=== PATIENT | male | born 1960 | race Caucasian/White ===

== ENCOUNTER 2016-09-03 15:01 | Emergency (ER) | payer OTHER ==
[~2016-09-03] VITALS: Ht 165.1 cm; Wt 90.5 kg
[2016-09-03 15:05] VITALS: BP 150/71; TEMP 36.7; Ht 165.1 cm; Wt 90.5 kg
--- NOTE | 2016-09-03 15:43 | DIAGNOSTIC IMAGING REPORT ---
RIGHT ELBOW MIN 3 VIEWS ROUTINE CLINICAL HISTORY: Right elbow pain. Trauma. COMPARISON: None DISCUSSION: There is mild displacement of the anterior humeral fat pad. No acute fractures are visualized. There is a small coronoid process spur. IMPRESSION: Suspected small joint effusion. Mild degenerative changes. No acute fractures are visualized on conventional radiographic imaging. Electronically signed by: Antolin Milligan M.D. 09/03/2016 3:42 PM Dictated Date/Time: 09/03/2016 3:40 PM
--- NOTE | 2016-09-03 15:58 | EMERGENCY ROOM VISIT NOTE ---
History First contact with patient: 15:09 Chief Complaint: ARM PAIN Stated Complaint: PAIN RT ARM History of Present Illness The patient is a 55 year old male who presents to the Emergency Room with complaints of right elbow pain after injuring his elbow yesterday at work. At approximately 2:30 PM, the patient was attempting to secure lumbar on a flatbed trailer, using a belt strap, when the latch broke while the patient was putting all of his weight on the tightening bar. The patient reports that he fell onto the ground with his elbow striking the ground first. He denies any head injury , neck pain, back pain, shoulder pain or other injuries except for his right elbow. He denies any paresthesias or numbness of the right hand or fingers. The patient is sfolc-[id number]-hzggnhaf, and rates his pain an 8 out of 10. Patient has taken Tylenol for the pain which provides mild to moderate relief. Review of Systems 10 system review was performed and was negative except for pertinent positives and negatives as indicated in history of present illness Past Medical/Surgical History Medical Problems: (1) Amputation Finger (2) Renal Sclerosis Nos Surgical Problems: (1) History of cholecystectomy Family History FH: cancer Social History Smoking Status: Never Smoker Alcohol Use: none Marital Status: Occupation Status: employed Current/Historical Medications Scheduled Multivitamin (Multivitamin), 1 TAB PO DAILY Allergies Coded Allergies: Penicillins (Verified Allergy, Mild, "MAKES ME SICK.", 11/01/10) Aspirin (Verified Adverse Reaction, Mild, NOSE BLEEDS, 11/01/10) Physical Exam Vital Signs Date Time Temp Pulse Resp B/P Pulse Ox O2 Delivery O2 Flow Rate FiO2 09/03/16 15:05 36.7 82 20 150/71 96 Room Air Physical Exam CONSTITUTIONAL: Healthy and well nourished. Alert and oriented X 3 with positive affect. Patient does not appear in any acute distress. HEENT: Normocephalic, atraumatic. Pupils equal, round and reactive. NECK: Full active range of motion without discomfort. MUSCULOSKELETAL: Examination of the right elbow shows mild edema. No ecchymosis , abrasions or lacerations noted. The patient has general tenderness to palpation about the entire posterior elbow and lateral elbow. Pronation and supination worsens his pain at the lateral elbow region. Flexion and extension causes generalized pain. The patient has no tenderness to palpation through the biceps musculature. He has mild tenderness to the triceps. Range of motion of the shoulder does not cause any discomfort. Negative anatomic snuffbox tenderness. Capillary refill is less than 2 seconds. INTEGUMENTARY: No rash or other significant dermatologic conditions noted. NEUROLOGIC: Right hand and fingers are sensory intact. Medical Decision & Procedures ER Provider Diagnostic Interpretation: My interpretation of right elbow x-rays does not show any obvious fractures or dislocations. There is mild displacement of the anterior fat pad. Radiologist report is as follows: RIGHT ELBOW MIN 3 VIEWS ROUTINE CLINICAL HISTORY: Right elbow pain. Trauma. COMPARISON: None DISCUSSION: There is mild displacement of the anterior humeral fat pad. No acute fractures are visualized. There is a small coronoid process spur. IMPRESSION: Suspected small joint effusion. Mild degenerative changes. No acute fractures are visualized on conventional radiographic imaging. ED Course Patient history and physical exam were performed. Nurse's notes were reviewed. The patient refused any analgesics while in the emergency department. X-rays of the right elbow showed no fractures, however a joint effusion is suspected. The patient was encouraged to limit his activities until reevaluated by his Worker's Compensation approved orthopedic surgeon. Tylenol as needed for pain. The patient reports that he is not allowed to take aspirin or Motrin because it causes nosebleeds. He was encouraged to apply ice for swelling. The patient was happy with plan of care, and voiced understanding of all discharge instructions. Medical Decision Impression Primary Impression: Injury of right elbow Additional Impression: Work related injury Departure Information Referrals Loren Arriaza.Santiago PA-C (PCP) Patient Instructions [facility] Problem Qualifiers Primary Impression: Injury of right elbow Encounter type: initial encounter Qualified Codes: S59.901A - Unspecified injury of right elbow, initial encounter
[2016-09-03 16:03] VITALS: PULSE 86; O2SAT 98
[2016-09-03] MEDS ORDERED: MULT-506 PO (20:38)
== END 2016-09-03 16:04 | disposition home or self-care (01) ==
LOC: C.EDB 15:02 → C.EDD 16:04
DX: S59.901A Unspecified injury of right elbow, initial encounter (principal); W17.89XA Other fall from one level to another, initial encounter; Y99.0 Civilian activity done for income or pay

== ENCOUNTER → 2016-09-28 | Outpatient (CLI) | payer OTHER ==
[~2016-09-28] MED LIST: MULT-506 PO
[2016-09-28 13:45] LABS: THYROID STIMULATING HORMONE 3.75 uIu/ml (0.300-4.500)
== END | disposition home or self-care (01) ==
LOC: C.LABPVFM 07:53
DX: E03.9 Hypothyroidism, unspecified (principal)

== ENCOUNTER 2019-03-23 14:58 | Inpatient (IN) ==
--- NOTE | 2019-03-23 15:19 | Emergency Department Note ---
Entered by Jaclyn Clancy acting as a scribe for Len Duarte MD History of Present Illness General Chief complaint: Flank Pain Stated complaint: PAIN THE WRAPS AROUND SIDES Time Seen by Provider: 03/23/19 15:04 Source: patient History of Present Illness Provider complaint: flank pain Onset (ago): day(s) 5 Location: abdomen (flank), left and right Radiation: back Pain Consistency: + other (episode) Associated symptoms: + denies other symptoms (dysuria, constipation, diarrhea, injury/trauma to the area) and + other (back is numb to the touch, occasional swelling in feet); no chest pain and no shortness of breath The patient is a 58 year old male who presents to the ED with complaints of an episode of bilateral flank pain that began 5 days ago. The patient states that it feels like there is a band that is wrapped around his abdomen that is getting tighter. The patient states that the pain radiates from his stomach all the way to his back. The patient denies injury and trauma to the area. 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 The patient states that his back feels numb when it is touched. The patient notes occasional swelling in his feet. The patient denies chest pain, shortness of breath, dysuria, constipation and diarrhea. Home Medications Home Medications Medication Instructions Recorded Confirmed Type anpoceyo-vrj-ugixo-vit K-lycop 1 tab PO DAILY 03/23/19 03/23/19 History [Men's One Daily] Allergies Allergy/AdvReac Type Severity Reaction Status Date / Time aspirin AdvReac Mild NOSE BLEEDS Verified 03/23/19 15:31 Penicillins AdvReac Mild "MAKES ME Verified 03/23/19 18:29 SICK." Past Med/Surg History Medical History Hydronephrosis of left kidney (Chronic) Surgical History History of abdominal surgery (Chronic) H/O left renal surgery History of appendectomy (Chronic) History of cholecystectomy (Chronic) History of kidney surgery Family History Father Cancer Social History Communication Ability: Effective Severity Of Illness Coordinator Required: No Beliefs That Will Affect Care: None Current Living Situation: Spouse and Family Current Living Situation Comment: lonatt-[id number] lives with patient also current occupational status: employed 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 and A total of 10 systems reviewed and were otherwise negative Physical Exam Vital Signs Vital Signs - 24 hr 03/23/19 15:00 03/23/19 15:25 03/23/19 15:26 Temperature 36.7 C Temperature Source Oral Sepsis Recent Fever Within 48 Hours No Sepsis New/Unexplained Change in Mental Status No Sepsis Action Taken by Nursing No Action Required Pulse Rate 86 86 Pulse Rate from SpO2 Sensor Respiratory Rate 18 20 Blood Pressure 177/73 H Blood Pressure Mean 107 Pulse Oximetry 95 96 Oxygen Delivery Method Room Air Room Air 03/23/19 15:30 03/23/19 15:40 03/23/19 16:01 Temperature Temperature Source Sepsis Recent Fever Within 48 Hours Sepsis New/Unexplained Change in Mental Status Sepsis Action Taken by Nursing Pulse Rate 85 80 81 Pulse Rate from SpO2 Sensor 81 Respiratory Rate 21 22 23 Blood Pressure 171/77 H Blood Pressure Mean 108 Pulse Oximetry 95 Oxygen Delivery Method 03/23/19 16:03 03/23/19 16:10 03/23/19 16:20 Temperature Temperature Source Sepsis Recent Fever Within 48 Hours Sepsis New/Unexplained Change in Mental Status Sepsis Action Taken by Nursing Pulse Rate 81 77 79 Pulse Rate from SpO2 Sensor 79 77 79 Respiratory Rate 18 17 14 Blood Pressure Blood Pressure Mean Pulse Oximetry 95 96 96 Oxygen Delivery Method 03/23/19 16:30 03/23/19 16:40 03/23/19 16:50 Temperature Temperature Source Sepsis Recent Fever Within 48 Hours Sepsis New/Unexplained Change in Mental Status Sepsis Action Taken by Nursing Pulse Rate 77 83 76 Pulse Rate from SpO2 Sensor 77 83 77 Respiratory Rate 16 17 19 Blood Pressure Blood Pressure Mean Pulse Oximetry 97 96 95 Oxygen Delivery Method 03/23/19 17:00 03/23/19 17:10 03/23/19 17:20 Temperature Temperature Source Sepsis Recent Fever Within 48 Hours Sepsis New/Unexplained Change in Mental Status Sepsis Action Taken by Nursing Pulse Rate 75 76 79 Pulse Rate from SpO2 Sensor 75 76 79 Respiratory Rate 21 16 20 Blood Pressure 153/75 H Blood Pressure Mean 101 Pulse Oximetry 96 95 96 Oxygen Delivery Method 03/23/19 17:30 03/23/19 17:40 03/23/19 17:50 Temperature Temperature Source Sepsis Recent Fever Within 48 Hours Sepsis New/Unexplained Change in Mental Status Sepsis Action Taken by Nursing Pulse Rate 81 75 72 Pulse Rate from SpO2 Sensor 79 76 72 Respiratory Rate 14 15 16 Blood Pressure Blood Pressure Mean Pulse Oximetry 96 97 96 Oxygen Delivery Method 03/23/19 17:52 Temperature Temperature Source Sepsis Recent Fever Within 48 Hours Sepsis New/Unexplained Change in Mental Status Sepsis Action Taken by Nursing Pulse Rate 73 Pulse Rate from SpO2 Sensor 74 Respiratory Rate 16 Blood Pressure 160/73 H Blood Pressure Mean 102 Pulse Oximetry 97 Oxygen Delivery Method General: Non-ill appearing middle aged male in no acute distress. HEENT: Normal cephalic atraumatic. Pupils are equal round and reactive to light. Extraocular movements are intact. Oropharynx is pink with moist mucous membranes. No swelling of the mouth lips or tongue. Neck: Supple with a midline trachea. No meningeal signs or stiffness, no JVD or bruits. No Stridor. Chest: Clear to auscultation bilaterally. No wheezes or rhonchi. No increased work of breathing. Heart: regular rate and rhythm. Abdomen: Mildly tender in bilateral mid lower abdomen. Soft, nondistended without rebound guarding or rigidity. No masses. Scar in left flank from previous surgery. Extremities: No cyanosis clubbing or edema. No calf tenderness or asymmetry Spine/Back. Non tender to palpation. No CVA tenderness Skin: Good turgor without rashes. Neurologic exam: Cranial nerves two through 12 are intact. Motor and sensation are intact and symmetrical throughout. Course 1505: Past medical records reviewed. The patient was evaluated in room A4. A complete history and physical exam was performed. 1551: I reevaluated the patient and he is at CT. 1618: I reevaluated the patient and he is resting comfortably. I discussed the patient's test results with him. We are still awaiting lab work. 1638: I reevaluated the patient and he feels good. I updated the patient on the lab results. The patient has an elevated troponin and EKG changes. I will contact Jim for admission. 1645: I discussed the patients case with [place] PA-C. She will be accepting the patient for Dr. Unique Fernandez Hospitalist. He will evaluate the patient for further management. Administered Medications Discontinued Medications Amlodipine Besylate (Norvasc) 5 mg PO NOW ONE Stop: 03/23/19 22:13 Last Admin: 03/23/19 22:30 Dose: 5 mg Documented by: [id number] Aspirin (Aspirin Chew) 324 mg PO NOW STA Stop: 03/23/19 18:38 Last Admin: 03/23/19 19:24 Dose: Not Given Documented by: [id number] Calcium Carbonate (Tums) 500 mg PO NOW STA Stop: 03/23/19 18:28 Last Admin: 03/23/19 19:01 Dose: 500 mg Documented by: [id number] Famotidine (Pepcid 20mg Iv Push) 20 mg IV ONE STA Stop: 03/23/19 18:28 Last Admin: 03/23/19 19:01 Dose: 20 mg Documented by: [id number] Sodium Chloride (Nss 1000ml) 1,000 mls @ 100 mls/hr IV .Q10H LUIS FELIPE Stop: 03/24/19 06:00 Last Infusion: 03/23/19 21:40 Dose: 0 mls/hr Documented by: [id number] Admin: 03/23/19 20:19 Dose: 100 mls/hr Documented by: [id number] Ioversol (Optiray 320 125ml) 120 ml IV ONCE PRN PRN Reason: Interaction Checking Stop: 03/27/19 17:57 Last Admin: 03/23/19 17:59 Dose: 120 ml Documented by: [id number] Medical Decision Making Differential Diagnosis Differentials include bowel obstruction, aneurysm, musculoskeletal, diverticulitis, kidney stone, metabolic and electrolyte abnormality. Medical Records Attestation: I reviewed the patient's medical records. Home Medications Current Medication List: was personally reviewed by me Laboratory Data Attestation: I reviewed the patient's lab results. Result diagrams: 03/23/19 15:33 03/23/19 15:33 Lab Results 03/23/19 03/23/19 03/23/19 Range/Units 15:33 15:33 15:33 WBC 7.50 (4.8-10.8) K/uL RBC 5.27 (4.7-6.1) M/uL Hgb 15.1 (14.0-18.0) g/dL Hct 44.1 (42-52) % MCV 83.7 (80-100) fL MCH 28.7 (25-34) pg MCHC 34.2 (32-36) g/dL RDW Std Deviation 37.8 (36.4-46.3) fL RDW Coeff of Kalani 12.6 (11.5-14.5) % Plt Count 192 (130-400) K/uL MPV 10.1 (7.4-10.4) fL Immature Gran % (Auto) 0.4 % Neut % (Auto) 57.8 % Lymph % (Auto) 26.0 % [place] % (Auto) 9.7 % Eos % (Auto) 5.7 % Baso % (Auto) 0.4 % Immature Gran # (Auto) 0.03 H (0.00-0.02) K/uL Neut # (Auto) 4.33 (1.4-6.5) K/uL Lymph # (Auto) 1.95 (1.2-3.4) K/uL [place] # (Auto) 0.73 H (0.11-0.59) K/uL Eos # (Auto) 0.43 (0-0.5) K/uL Baso # (Auto) 0.03 (0-0.2) K/uL Sodium 140 (136-145) mmol/L Potassium 4.2 (3.5-5.1) mmol/L Chloride 106 (98-107) mmol/L Carbon Dioxide 27 (21-32) mmol/L Anion Gap 7.0 (3-11) BUN 20 H (7-18) mg/dl Creatinine 1.47 H (0.6-1.4) mg/dl Est Cr Clr Drug Dosing 54.2 ml/min Est GFR ( Amer) 60.1 Est GFR (Non-Af Amer) 51.8 BUN/Creatinine Ratio 13.3 (10-20) Glucose 101 H (70-99) mg/dl Lactate 0.9 (0.4-2.0) mmol/L Calcium 8.8 (8.5-10.1) mg/dl Total Bilirubin 0.4 (0.2-1) mg/dl AST 24 (15-37) U/L ALT 27 (12-78) U/L Alkaline Phosphatase 109 (45-117) U/L Troponin I 0.051 H* (0-0.045) ng/ml Total Protein 7.4 (6.4-8.2) gm/dl Albumin 3.5 (3.4-5.0) gm/dl Globulin 3.9 (2.5-4.0) gm/dl Albumin/Globulin Ratio 0.9 (0.9-2) Amylase 69 (25-115) U/L Lipase 386 (73-393) U/L Urine Color Urine Appearance (Clear) Urine pH (4.5-7.5) Ur Specific Butler (1.000-1.030) Urine Protein (Negative) Urine Glucose (UA) (Negative) Urine Ketones (Negative) Urine Blood (Negative) Urine Nitrite (Negative) Urine Bilirubin (Negative) Urine Urobilinogen (Negative) Ur Leukocyte Esterase (Negative) Hepatitis C Ab Screen (Neg) 03/23/19 03/23/19 Range/Units 15:33 16:01 WBC (4.8-10.8) K/uL RBC (4.7-6.1) M/uL Hgb (14.0-18.0) g/dL Hct (42-52) % MCV (80-100) fL MCH (25-34) pg MCHC (32-36) g/dL RDW Std Deviation (36.4-46.3) fL RDW Coeff of Kalani (11.5-14.5) % Plt Count (130-400) K/uL MPV (7.4-10.4) fL Immature Gran % (Auto) % Neut % (Auto) % Lymph % (Auto) % [place] % (Auto) % Eos % (Auto) % Baso % (Auto) % Immature Gran # (Auto) (0.00-0.02) K/uL Neut # (Auto) (1.4-6.5) K/uL Lymph # (Auto) (1.2-3.4) K/uL [place] # (Auto) (0.11-0.59) K/uL Eos # (Auto) (0-0.5) K/uL Baso # (Auto) (0-0.2) K/uL Sodium (136-145) mmol/L Potassium (3.5-5.1) mmol/L Chloride (98-107) mmol/L Carbon Dioxide (21-32) mmol/L Anion Gap (3-11) BUN (7-18) mg/dl Creatinine (0.6-1.4) mg/dl Est Cr Clr Drug Dosing ml/min Est GFR ( Amer) Est GFR (Non-Af Amer) BUN/Creatinine Ratio (10-20) Glucose (70-99) mg/dl Lactate (0.4-2.0) mmol/L Calcium (8.5-10.1) mg/dl Total Bilirubin (0.2-1) mg/dl AST (15-37) U/L ALT (12-78) U/L Alkaline Phosphatase (45-117) U/L Troponin I (0-0.045) ng/ml Total Protein (6.4-8.2) gm/dl Albumin (3.4-5.0) gm/dl Globulin (2.5-4.0) gm/dl Albumin/Globulin Ratio (0.9-2) Amylase (25-115) U/L Lipase (73-393) U/L Urine Color Yellow Urine Appearance Clear (Clear) Urine pH 6.5 (4.5-7.5) Ur Specific Butler 1.021 (1.000-1.030) Urine Protein Negative (Negative) Urine Glucose (UA) Negative (Negative) Urine Ketones Negative (Negative) Urine Blood Negative (Negative) Urine Nitrite Negative (Negative) Urine Bilirubin Negative (Negative) Urine Urobilinogen Negative (Negative) Ur Leukocyte Esterase Negative (Negative) Hepatitis C Ab Screen Neg (Neg) Imaging Data Radiologist's Impression: Radiology results as stated below per my review and the radiologist's interpretation: CT SCAN OF THE ABDOMEN AND PELVIS WITHOUT IV CONTRAST CLINICAL HISTORY: Generalized abdominal pain. COMPARISON STUDY: Abdominal CT dated 11/01/2010. TECHNIQUE: CT scan of the abdomen and pelvis is performed from the lung bases to the proximal femora. Images are reviewed in the axial, sagittal, and coronal planes. IV contrast was not administered for this examination. Note that the examination is suboptimal without oral and IV contrast. A dose lowering technique was utilized adhering to the principles of ALARA. CT DOSE: 686.79 mGy.cm FINDINGS: Lung bases: The heart is normal in size and without pericardial effusion. There is mild elevation of the left hemidiaphragm with dependent atelectasis. The lung bases are otherwise clear. There is a tiny hiatal hernia. Liver: The unenhanced liver is normal in size, contour, and attenuation. There is no intrahepatic biliary ductal dilatation. Gallbladder: Surgically absent noting clips in the gallbladder fossa. Spleen: Normal in size and attenuation. Pancreas: The unenhanced pancreas is mildly atrophic. Faint stranding suggested around the pancreatic head. No pancreatic fluid collection is identified. Adrenal glands: Unremarkable. Kidneys: There is asymmetric cortical atrophy of the left kidney as compared to the right. There is moderate left-sided hydronephrosis, with postoperative change seen near the ureteropelvic junction. No hydronephrosis is seen on the right. There are no renal calculi identified. There is no evidence of contour deforming renal mass lesion. Abdominal vasculature: The abdominal aorta is normal in course and caliber noting scattered foci of atherosclerotic calcification. Bowel: There are scattered colonic diverticula without CT evidence of acute diverticulitis. No bowel obstruction is seen. Moderate colonic fecal retention is observed. The appendix is not identified and reported surgically absent. Peritoneum: There is no intraperitoneal free air or abdominal ascites. There is a small fat-containing umbilical hernia. Lymphadenopathy: None. Pelvic viscera: The bladder, prostate, and seminal vesicles are normal as visualized. There is a small fat-containing left inguinal hernia. Skeletal structures: No lytic or blastic lesions are seen. IMPRESSION: 1. There is faint stranding suggested around the pancreatic head. Correlate clinically and with serum amylase/lipase levels for evidence of mild acute pancreatitis. 2. There is asymmetric cortical atrophy of the left kidney as compared to the right. 3. There is moderate left-sided hydronephrosis with postoperative change is seen at the ureteropelvic junction. This is similar to the 2011 examination. Corre lation with the patient's urological history will be required. 4. Additional findings as above. Electronically signed by: Andrew Colon M.D. 03/23/2019 4:01 PM ECG Data Attestation: I personally reviewed and interpreted this ECG as follows: Indication: abdominal pain Rate (beats per minute): 87 Rhythm: normal sinus Findings: + other (nonspecific lateral T wave abnormality) Blood Pressure Blood Pressure Findings: Elevated blood pressure Blood Pressure Disposition: further management by hospitalist JOCELIN Narrative This patient comes in as described above. He was placed in room A4. He is here for treatment and evaluation of abdominal pain. This is been going on for almost a week. He feels distended. 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 Nothing seems to make it better or worse. he has no numbness or weakness of his legs. no urinary symptoms and he has nothing to suggest cauda equina syndrome. He has nothing to suggest infection. He has had surgery on his left flank as a child. IV access established. EKG and blood work was obtained as well as urinalysis and a CAT scan. He was reassessed frequently. He has no white count or fever to suggest infection or sepsis. His urinalysis was clean. His EKG does have some lateral T wave inversions and there is no old one for comparison. This is further concerning by the fact that his troponin is mildly elevated at 0.05. Given this, I do think he needs to be observed for further cardiac evaluation. His creatinine is mildly elevated at 1.4 which is baseline. His CAT scan of his abdomen shows baseline hydro-on the left. The radiologist question whether could be some mild pancreatitis however his lipase and amylase are not elevated. [facility] for further treatment and evaluation. Impression & Plan Abdominal pain, Acute electrocardiogram changes, Elevated troponin, Chronic renal insufficiency Discharge Plan Visit Data *Final* Discharge Date/Time: 03/23/19 19:18 Chief Complaint: Flank Pain Stated Complaint: PAIN THE WRAPS AROUND SIDES ED Provider: Len Duarte Discharge Problem: Abdominal pain, Acute electrocardiogram changes, Elevated troponin, Chronic renal insufficiency Patient Disposition: Admitted As Inpatient Discharge Instructions Interventions: ED Discharge Assessment Last Done: 03/23/19 19:18 Discharge Problem: Abdominal pain Qualifiers: Abdominal location: unspecified location Qualified Code(s): R10.9 - Unspecified abdominal pain Chronic renal insufficiency Qualifiers: Chronic kidney disease stage: unspecified stage Qualified Code(s): N18.9 - Chronic kidney disease, unspecified The scribe's documentation has been prepared under my direction and personally reviewed by me in its entirety. I confirm that the note above accurately reflects all work, treatment, procedures, and medical decision making performed by me.
[2019-03-23 15:55] LABS: Basophils # (auto) 0.03 K/uL (0-0.2); Basophils % (auto) 0.4 %; Eosinophils # (auto) 0.43 K/uL (0-0.5); Eosinophils % (auto) 5.7 %; Hematocrit (blood only) 44.1 % (42-52); Hemoglobin 15.1 g/dL (14.0-18.0); Immature Granulocytes # (auto) 0.03 K/uL (0.00-0.02); Immature Granulocytes % (auto) 0.4 %; Lymphocytes # (auto) 1.95 K/uL (1.2-3.4); Mean Corpuscular Hgb Conc 34.2 g/dL (32-36); Mean Corpuscular Volume 83.7 fL (80-100); Mean Platelet Volume 10.1 fL (7.4-10.4); Monocytes # (auto) 0.73 K/uL (0.11-0.59); Monocytes % (auto) 9.7 %; Neutrophils # (auto) 4.33 K/uL (1.4-6.5); Neutrophils % (auto) 57.8 %; Platelet Count 192 K/uL (130-400); RDW Coefficient of Variation 12.6 % (11.5-14.5); RDW Standard Deviation 37.8 fL (36.4-46.3); Red Blood Count 5.27 M/uL (4.7-6.1)
--- NOTE | 2019-03-23 16:03 | CT Scan Report ---
CT SCAN OF THE ABDOMEN AND PELVIS WITHOUT IV CONTRAST CLINICAL HISTORY: Generalized abdominal pain. COMPARISON STUDY: Abdominal CT dated 11/01/2010. TECHNIQUE: CT scan of the abdomen and pelvis is performed from the lung bases to the proximal femora. Images are reviewed in the axial, sagittal, and coronal planes. IV contrast was not administered for this examination. Note that the examination is suboptimal without oral and IV contrast. A dose lower ing technique was utilized adhering to the principles of ALARA. CT DOSE: 686.79 mGy.cm FINDINGS: Lung bases: The heart is normal in size and without pericardial effusion. There is mild elevation of the left hemidiaphragm with dependent atelectasis. The lung bases are otherwise clear. There is a tin y hiatal hernia. Liver: The unenhanced liver is normal in size, contour, and attenuation. There is no intrahepatic janell iary ductal dilatation. Gallbladder: Surgically absent noting clips in the gallbladder fossa. Spleen: Normal in size and attenuation. Pancreas: The unenhanced pancreas is mildly atrophic. Faint stranding suggested around the pancreatic head. No pancreatic fluid collection is identified. Adrenal glands: Unremarkable. Kidneys: There is asymmetric cortical atrophy of the left kidney as compared to the right. There is m oderate left-sided hydronephrosis, with postoperative change seen near the ureteropelvic junction. No hydronephrosis is seen on the right. There are no renal calculi identified. There is no evidence of contour deforming renal mass lesion. Abdominal vasculature: The abdominal aorta is normal in course and caliber noting scattered foci of a therosclerotic calcification. Bowel: There are scattered colonic diverticula without CT evidence of acute diverticulitis. No bowel obstruction is seen. Moderate colonic fecal retention is observed. The appendix is not identified an d reported surgically absent. Peritoneum: There is no intraperitoneal free air or abdominal ascites. There is a small fat-containin g umbilical hernia. Lymphadenopathy: None. Pelvic viscera: The bladder, prostate, and seminal vesicles are normal as visualized. There is a smal l fat-containing left inguinal hernia. Skeletal structures: No lytic or blastic lesions are seen. IMPRESSION: 1. There is faint stranding suggested around the pancreatic head. Correlate clinically and with serum amylase/lipase levels for evidence of mild acute pancreatitis. 2. There is asymmetric cortical atrophy of the left kidney as compared to the right. 3. There is moderate left-sided hydronephrosis with postoperative change is seen at the ureteropelvic junction. This is similar to the 2011 examination. Correlation with the patient's urological history will be required. 4. Additional findings as above. Electronically signed by: Andrew Colon M.D. 03/23/2019 4:01 PM
[2019-03-23 16:04] LABS: Albumin Level 3.5 gm/dl (3.4-5.0); BUN Creatinine Ratio 13.3 (10-20); Calcium 8.8 mg/dl (8.5-10.1); Creatinine Clr Calc Pharmacy 54.2 ml/min; Est GFR (African American) 60.1; Est GFR (Non-African American) 51.8; Potassium 4.2 mmol/L (3.5-5.1)
[2019-03-23 16:08] LABS: Appearance Urine Clear (Clear); Bilirubin Urine Negative (Negative); Blood Urine Negative (Negative); Color Urine Yellow; Glucose Urine UA Negative (Negative); Ketones Urine Negative (Negative); Leukocyte Esterase Urine Negative (Negative); Nitrite Urine Negative (Negative); Protein Urine Negative (Negative); Specific Gravity Urine 1.021 (1.000-1.030); Urobilinogen Urine Negative (Negative); pH Urine 6.5 (4.5-7.5)
[2019-03-23 16:18] LABS: Albumin Globulin Ratio 0.9 (0.9-2); Bilirubin,Total 0.4 mg/dl (0.2-1); Globulin 3.9 gm/dl (2.5-4.0); Total Protein 7.4 gm/dl (6.4-8.2); Troponin I 0.051 ng/ml (0-0.045)
[2019-03-23] MEDS ORDERED: OPTIRAY 320 125ml IV PRN (17:58)
--- NOTE | 2019-03-23 18:17 | CT Scan Report ---
CT OF THE CHEST WITH IV CONTRAST CLINICAL HISTORY: Chest and back pain. Possible dissection. COMPARISON STUDY: No previous studies for comparison. TECHNIQUE: Following the IV administration of 120 mL of Optiray-320, CT of the thorax was performed f rom the thoracic inlet to the lung bases. Images are reviewed in the axial, sagittal, and coronal ebenezer radha. IV contrast was administered without complication. A dose lowering technique was utilized adher ing to the principles of ALARA. MIP images were acquired. CT DOSE: 522.97 mGy.cm FINDINGS: Thyroid: There is a right lobe thyroid goiter with a 3 cm nodule. Nonemergent ultrasonography is rc mmended in follow-up. Thoracic aorta: The thoracic aorta is normal in course and caliber, noting standard 3-vessel arch tim kayla. No aneurysm or dissection is seen. Pulmonary vasculature: There are no pulmonary artery filling defects to indicate acute pulmonary embo lism. HEART: There are minor coronary artery calcifications. Lungs and pleural spaces: There is no pneumothorax. There are no pleural effusions. There is no focal pulmonary consolidation. Mediastinum: There is no evidence of pathologic mediastinal lymphadenopathy. Ashley: There is no evidence of pathologic hilar lymphadenopathy. Axilla: There is no is a pathologic axillary lymphadenopathy. Upper abdomen: The gallbladder is surgically absent. There is probable hepatic steatosis. Skeletal structures: There are no lytic or blastic osseous lesions. IMPRESSION: 1. No evidence of acute pulmonary embolism 2. No evidence of thoracic aortic aneurysm or dissection 3. No evidence of focal pulmonary consolidation 4. 3 cm right lobe thyroid nodule. Nonemergent thyroid ultrasonography is recommended in follow-up Electronically signed by: Antolin Milligan M.D. 03/23/2019 6:15 PM
[2019-03-23] MEDS ORDERED: CALCIUM CARBONATE 500 MG CHEWABLE TAB PO STA (18:27)
[2019-03-23] MEDS ORDERED: FAMOTIDINE 20MG/5ML IV PUSH IV STA (18:27)
--- NOTE | 2019-03-23 18:33 | History & Physical Report ---
Date of Service March 23, 2019 Assessment & Plan (1) Paresthesia: (2) Abdominal pain: Pt presented with upper abdominal tightness like sensation with radiation to bilateral flank x 5 days. Reported paresthesia to trunk. No fever/chills, N/V/D/C. No CP/SOB In ER afebrile, P: 91, BP: 153/75, 96% on RA. No leukocytosis. No anemia, normal LFTs, normal lipase, UA WNL. CT ABD/PELVIS W/O CONTRAST:1. There is faint stranding suggested around the pancreatic head. 2. There is asymmetric cortical atrophy of the left kidney as compared to the right. 3. There is moderate left-sided hydronephrosis with postoperative change is seen at the ureteropelvic junction. This is similar to the 2011 examination. CTA CHEST:1. No evidence of acute pulmonary embolism 2. No evidence of thoracic aortic aneurysm or dissection 3. No evidence of focal pulmonary consolidation 4. 3 cm right lobe thyroid nodule. Nonemergent thyroid ultrasonography is recommended in follow-up DDX: early pancreatitis, uncertain neurology etiology -Pepcid and Tums trial to see if aids in symptoms -clear liquids -CBC, CMP, lipase in am -neurology consult (3) Elevated troponin: No CP, SOB. no angina symptoms. In ER Troponin: 0.05. EKG: sinus rhythm, T wave inversion lateral. No prior EKG to compare R/O ACS. No reported h/o HTN, however BP elevated in ER. Troponin may be elevated with renal insuffiency -Monitor Vitals -Given aspirin -Repeat EKG in am -Will trend troponin -Echo -lipid panel in am -Nitro prn CP and repeat EKG for CP -If increasing troponin, consider cardiology consult (4) Renal insufficiency: Cr:1.47. Past labs from 2010 with Cr: 1.9 down trended to 1.4 during that admission -Monitor renal functions -Avoid nephrotoxic agents (5) HTN (hypertension): BP in ER 171/77 down to 153/75 No hx diagnosed HTN in past -Monitor BP -May need to consider adding BP agent (6) Thyroid nodule: CTA Chest: 3 cm right lobe thyroid nodule. -Pt will need further out patient follow up, recommend thyroid ultrasonography DVT Prophylaxis -Low risk, Ambulate Follows with Dr Alonso in [place] for routine care Pt was seen and care coordinated with Dr Gutierrez. See addendum History of Present Illness Chief Complaint: Abdominal pain Primary Care Provider: Mazin Alonso M.D. Pt is 58 y/o M without known significant PMH presented to ER with c/o rubber band like tightness or stretching sensation around upper abdomen. Pt describes as radiating around bilateral flank, however then reports uncertain if it starts in flank and radiates to front of abdomen. Started 5 days ago and reports increased pain. Has been eating and drinking normally without any aggravating symptoms. Denies N/V/D/C. Formed BM this morning. Denies pleuritic CP. 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 Denies any known trauma. Reports able to climb flight of stairs without any SOB or CP. Denies any CP or exertional SOB. Pt states sometimes if drinks too much soda and then lays in supine position he will have gurgling sounds to esophagus. Otherwise denies heartburn, orthopnea, PND, LE edema. Denies any skin rashes. Denies fever/chills, diaphoresis, CHILDERS, dizziness, syncope, vision changes, neck pain, palpitations, cough, sore throat, choking, otalgia, rhinorrhea, paresthesias, weakness, extremity weakness, extremity edema, rashes, hematuria, dysuria, urinary retention, urinary frequency, melena, hematochezia. Pt reports hx L renal surgery in past (is unsure of diagnosis and procedure), h/o appendectomy, cholecystectomy. 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 No epistaxis since. In ER: BP left arm: 160/73; BP right arm: 153/73 Allergies Allergy/AdvReac Type Severity Reaction Status Date / Time aspirin AdvReac Mild NOSE BLEEDS Verified 03/23/19 15:31 Penicillins AdvReac Mild "MAKES ME Verified 03/23/19 18:29 SICK." Home Medications Home Medications Medication Instructions Recorded Confirmed Type [id number] K-lycop 1 tab PO DAILY 03/23/19 03/23/19 History [Men's One Daily] Past Med/Surg History Medical History Hydronephrosis of left kidney (Chronic) Surgical History History of abdominal surgery (Chronic) H/O left renal surgery History of appendectomy (Chronic) History of cholecystectomy (Chronic) History of kidney surgery Family History Father Cancer Social History Communication Ability: Effective Bioinformatics Support Specialist Required: No Beliefs That Will Affect Care: None Current Living Situation: Spouse and Family Current Living Situation Comment: [id number] lives with patient also current occupational status: employed 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 Other Information That Helps Us Care for You: No Feels Safe at Home: Yes Safety Concerns: Feels Safe At This Time Smoking Status: Never smoker Hx Alcohol Use: No Hx Substance Use: No Review of Systems Review of Systems: All systems reviewed & are unremarkable except as noted in HPI & below Physical Exam Physical Exam: General: no acute distress, overweight Head: normocephalic, atraumatic Eyes: PERRL, EOM's intact, conjunctiva non-injected, anicteric ENT: normal inspection external ears, nose, mucous membranes moist Neck: supple, trachea midline Lungs: clear, no respiratory distress, no wheezing/rhonchi/rales CV: RRR, + murmur, no JVD, no pretibial edema Abd: normal BS, soft, protuberant, +healed surgical scars, no rashes noted, mild tenderness to palpation epigastric without rebound or guarding, no CVA tenderness to palpation Back: no spinous process tenderness to palpation, no rashes, ROM intact without increased discomfort symptoms Ext: no cyanosis, no calf tenderness; ROM intact, distal pulses intact, sensation to light touch upper and lower extremities intact Neuro: A&O x 3, no focal deficits noted, normal affect Skin: warm, dry Results & Data Vital Signs (Past 12 Hours) Vital Signs Temp Pulse Resp BP Pulse Ox 03/23/19 17:40 75 15 97 03/23/19 17:30 81 14 96 03/23/19 17:20 79 20 96 03/23/19 17:10 76 16 95 03/23/19 17:00 75 21 153/75 H 96 03/23/19 16:50 76 19 95 03/23/19 16:40 83 17 96 03/23/19 16:30 77 16 97 03/23/19 16:20 79 14 96 03/23/19 16:10 77 17 96 03/23/19 16:03 81 18 95 03/23/19 16:01 81 23 171/77 H 95 03/23/19 15:40 80 22 03/23/19 15:30 85 21 03/23/19 15:26 86 20 03/23/19 15:25 96 03/23/19 15:00 36.7 C 86 18 177/73 H 95 Laboratory Results Short CBC 03/23/19 Range/Units 15:33 WBC 7.50 (4.8-10.8) K/uL Hgb 15.1 (14.0-18.0) g/dL Hct 44.1 (42-52) % Plt Count 192 (130-400) K/uL BMP 03/23/19 15:33 Sodium 140 Potassium 4.2 Chloride 106 Carbon Dioxide 27 BUN 20 H Creatinine 1.47 H Glucose 101 H Calcium 8.8 Cardiac Enzymes 03/23/19 Range/Units 15:33 Troponin I 0.051 H* (0-0.045) ng/ml Liver Function 03/23/19 Range/Units 15:33 Total Bilirubin 0.4 (0.2-1) mg/dl AST 24 (15-37) U/L ALT 27 (12-78) U/L Alkaline Phosphatase 109 (45-117) U/L Albumin 3.5 (3.4-5.0) gm/dl Urine 03/23/19 Range/Units 16:01 Urine Color Yellow Urine Appearance Clear (Clear) Urine pH 6.5 (4.5-7.5) Ur Specific Lyle 1.021 (1.000-1.030) Urine Protein Negative (Negative) Urine Glucose (UA) Negative (Negative) Diagnostic Findings CT ABD/PELVIS W/O CONTRAST: IMPRESSION: 1. There is faint stranding suggested around the pancreatic head. Correlate clinically and with serum amylase/lipase levels for evidence of mild acute pancreatitis. 2. There is asymmetric cortical atrophy of the left kidney as compared to the right. 3. There is moderate left-sided hydronephrosis with postoperative change is seen at the ureteropelvic junction. This is similar to the 2011 examination. Correlation with the patient's urological history will be required. 4. Additional findings as above. CTA CHEST: IMPRESSION: 1. No evidence of acute pulmonary embolism 2. No evidence of thoracic aortic aneurysm or dissection 3. No evidence of focal pulmonary consolidation 4. 3 cm right lobe thyroid nodule. Nonemergent thyroid ultrasonography is recommended in follow-up ECG Rate (beats per minute): 87 Rhythm: sinus rhythm Findings: + T-wave inversion (V4-V6) Comparison ECG Date: no prior available Supervising Physician Co-Signing Physician Notes I have seen and examined the patient and have discussed the case with the provider above. I agree with the assessment and plan as stated with the following exceptions. 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 The band is approximately 5" in width in a belt distribution. He denies pain, shortness of breath, urinary issues, no changes in bowel movements, or other issues. Although workup revealed trop 0.05, his story is less likely ACS related. Physical exam is completely unremarkable aside from this belt of numbness as above. He is otherwise hemodynamically stable and afebrile. Assessement: (1) numbness, (2) renal insufficiency, (3) elevated blood pressure. Agree with workup to ensure no ACS present including trending troponins overnight and performing echo in am. Monitor on telemetry. However, we need to understand the root cause of this numbness. Common etiologies of something like this include but are not limited to meralgia paresthetica, MS, or somatic dysfunction of the spine/lower ribs. Of note, MS seems less likely as he denies other associated symptoms such as Lhermitte's sign, bladder problems, gait problems, etc. Suggest Neurology consult to weigh in and make recommendations, including the need for an MRI or other related workup. Also, he has established care with a chiropractor, and spinal manipulation may prove beneficial. This was discussed with he and his . DO Matt (1) Abdominal pain Abdominal location: unspecified location Qualified Code(s): R10.9 - Unspecified abdominal pain
[2019-03-23] MEDS ORDERED: ASPIRIN 81 MG CHEW PO STA (18:37)
[2019-03-23] MEDS ORDERED: ACETAMINOPHEN 325 MG TAB PO PRN (20:01)
[2019-03-23] MEDS ORDERED: ONDANSETRON INJ 2 MG/ML 2 ML VIAL IV PRN (20:01)
[2019-03-23] MEDS ORDERED: NITROGLYCERIN SL 0.4 MG/TAB TAB SL PRN (20:01)
[2019-03-23] MEDS ORDERED: SODIUM CHLORIDE 0.9% 1000ML 1,000 ML IV SCH (20:01)
[2019-03-23] MEDS ORDERED: MoRPHine SULFATE 2 MG/ML CARP IV PRN (20:19)
[2019-03-23] MEDS ORDERED: AMLODIPINE BESYLATE 5 MG TAB PO ONE (22:12)
[2019-03-24 03:01] LABS: Hematocrit (blood only) 42.8 % (42-52); Hemoglobin 15.2 g/dL (14.0-18.0); Mean Corpuscular Hgb Conc 35.5 g/dL (32-36); Mean Corpuscular Volume 82.3 fL (80-100); Mean Platelet Volume 9.3 fL (7.4-10.4); Platelet Count 181 K/uL (130-400); RDW Coefficient of Variation 12.4 % (11.5-14.5); White Blood Count 9.06 K/uL (4.8-10.8)
[2019-03-24 03:25] LABS: Albumin Level 3.3 gm/dl (3.4-5.0); BUN Creatinine Ratio 13.4 (10-20); Calcium 8.8 mg/dl (8.5-10.1); Est GFR (African American) 66.6; Est GFR (Non-African American) 57.5; Potassium 4.1 mmol/L (3.5-5.1)
[2019-03-24 03:49] LABS: Albumin Globulin Ratio 0.9 (0.9-2); Bilirubin,Total 0.5 mg/dl (0.2-1); Globulin 3.5 gm/dl (2.5-4.0); Total Protein 6.8 gm/dl (6.4-8.2); Troponin I 0.056 ng/ml (0-0.045)
[2019-03-24] MEDS ORDERED: PERFLUTREN LIPID MICROSPHERE (DEFINITY) IV ONE (08:58)
[2019-03-24] MEDS: AMLODIPINE BESYLATE 5 MG TAB PO SCH (10:10)
--- NOTE | 2019-03-24 11:53 | Hospitalist Progress Note ---
Date of Service March 24, 2019 Assessment & Plan (1) Paresthesia: (2) Abdominal pain: Pt presented with upper abdominal tightness like sensation with radiation to bilateral flank x 5 days. Reported paresthesia to trunk. No fever/chills, N/V/D/C. No CP/SOB In ER afebrile, P: 91, BP: 153/75, 96% on RA. No leukocytosis. No anemia, normal LFTs, normal lipase, UA WNL. CT ABD/PELVIS W/O CONTRAST:1. There is faint stranding suggested around the pancreatic head. 2. There is asymmetric cortical atrophy of the left kidney as compared to the right. 3. There is moderate left-sided hydronephrosis with postoperative change is seen at the ureteropelvic junction. This is similar to the 2011 examination. CTA CHEST:1. No evidence of acute pulmonary embolism 2. No evidence of thoracic aortic aneurysm or dissection 3. No evidence of focal pulmonary consolidation 4. 3 cm right lobe thyroid nodule. Nonemergent thyroid ultrasonography is recommended in follow-up DDX: early pancreatitis, uncertain neurology etiology -Pepcid and Tums trial to see if aids in symptoms -clear liquids -CBC, CMP, lipase in am (3) Elevated troponin: No CP, SOB. no angina symptoms. In ER Troponin: 0.05. EKG: sinus rhythm, T wave inversion lateral. No prior EKG to compare R/O ACS. No reported h/o HTN, however BP elevated in ER. Troponin may be elevated with renal insuffiency -Monitor Vitals -Given aspirin -Echo in progress -Nitro prn CP and repeat EKG for CP (4) Renal insufficiency: Cr:1.47. Past labs from 2010 with Cr: 1.9 down trended to 1.4 during that admission -Monitor renal functions -Avoid nephrotoxic agents (5) HTN (hypertension): BP 118/67 No hx diagnosed HTN in past (6) Thyroid nodule: CTA Chest: 3 cm right lobe thyroid nodule. -Pt will need further out patient follow up, recommend thyroid ultrasonography DVT Prophylaxis -Low risk, Ambulate Follows with Dr Alonso in [place] for routine care ROS-No Headache, No Visual Changes, No Nausea, No Vomiting, No Fever, No Chills, No Neck Pain or Stiffness, No Chest Pain, No Palpitations, No SOB, No MAHONEY, No Cough, No Sputum, No Wheezing, +Abdominal Pain, No Diarrhea, No Hematemesis, No Hemoptysis, No Unexpected Weight Loss, No Flank pain, No Melena, No Hematochezia, No Frequency, No Urgency, No Burning, No Hematuria, No Rashes, No Diaphoresis. Appetite is Normal Physical Exam Gen-AAO x 3, NAD, Afebrile Head-NCAT, EOMI, PERRLA, Anicteric Sclera, No Posterior Pharyngeal Erythema Neck-Supple, No JVD, No Thyromegaly, No Masses, No LAD, No Bruits Lungs-Clear to Auscultation Bilaterally, No Rales, No Rhonchi, No Wheezing, No Crepitus Chest-No S4, +S1, +S2, No S3, No Murmurs, No Rubs, No Gallops, No Ectopy Abdomen-Soft, Bowel Sounds Present, Non Tender, Non Distended, No Hepatomegaly, No Splenomegaly, No Palpable Masses, No Rebound, No Rigidity, No Guarding Musculoskeletal-Full Range of Motion Bilaterally, No CVAT Extremities-No Cyanosis, No Clubbing, No Edema Nuero-Cranial Nerves II-XII grossly intact, Motor WNL, DTRs WNL, Strength WNL, Non Focal Psych-Normal Mood Results & Data Vital Signs (Past 12 Hours) Vital Signs Temp Pulse Pulse Resp BP Pulse Ox 03/24/19 11:07 36.5 C 67 17 118/67 94 03/24/19 07:05 36.6 C 73 17 133/69 95 03/24/19 03:22 36.7 C 72 18 113/64 94 03/24/19 00:00 70 labs checked (1) Abdominal pain Abdominal location: unspecified location Qualified Code(s): R10.9 - U nspecified abdominal pain
--- NOTE | 2019-03-24 13:48 | Neurology Consultation ---
Date of Consultation March 24, 2019 Assessment & Plan (1) Paresthesia: 1. paresthesia around abdomen- states is resolving 2. currently NPO due to some stranding on CT abdomen around pancreas 3. no complaint of back pain or injury- if suspected spine source would MRI c/t/l spine 4. currently no neuro deficit 5. TTE- EF 55-60% NO ASD 6. further recommendation once MRI c t resulted 7. medical management per primary team Supervising Physician Co-Signing Physician Notes I have seen and discussed above patient with Dr Holly Ching, neurology. pt seen and examined.No change in strength, no incontinence, change in gait or spine pain. Exam is normal with the exception of mildly brisk LE reflexes with crossed adductor on r, increase superficial abd reflexes,no clonus, toes down no sensory abnl, gait abnl. P MRI C, T spine with and without r/o cord lesion. HERNAN Ching MD History of Present Illness Reason for Consultation: parathesias band like feeling around abdomen Requesting Physician: Pawel Lujan DO Attending Physician: Pawel Lujan DO History of Present Illness Wilbert is a 58 year old male with no known PMH presented to ER with c/o rubber band like tightness or stretching sensation around upper abdomen, radiating around bilateral flank, however then reports uncertain if it starts in flank and radiates to front of abdomen. The sensation started 5 days ago and was off and on but then became more intense. 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 If he drinks too much soda and then lays in supine position he will have gurgling sounds to esophagus. He does have a history of L renal surgery in past (is unsure of diagnosis and procedure), h/o appendectomy, cholec ystectomy. 2010 retroperitoneal US: Left renal atrophy, mild left hydronephrosis which is similar to the findings on the A/P CT done on this admission. He denies CP, SOB, abdominal pain, one sided weakness, numbness tingling, N, V, new bowel or bladder symptoms, + banding around abdomen improving. the only thing he takes every day is a multi vitamin. Allergies Allergy/AdvReac Type Severity Reaction Status Date / Time aspirin AdvReac Mild NOSE BLEEDS Verified 03/23/19 15:31 Penicillins AdvReac Mild "MAKES ME Verified 03/23/19 18:29 SICK." Home Medications Home Medications Medication Instructions Recorded Confirmed Type Men's One Daily 1 tab PO DAILY 03/23/19 03/23/19 History amlodipine [Norvasc] 5 mg PO QAM #30 tab 03/25/19 Rx Patient History Medical History Hydronephrosis of left kidney (Chronic) Surgical History History of abdominal surgery (Chronic) H/O left renal surgery History of appendectomy (Chronic) History of cholecystectomy (Chronic) History of kidney surgery Family History Father Cancer Social History Communication Ability: Effective Supervisor Reactor Fueling Required: No Beliefs That Will Affect Care: None Current Living Situation: Spouse and Family Current Living Situation Comment: [id number] lives with patient also current occupational status: employed 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 Other Information That Helps Us Care for You: No Feels Safe at Home: Yes Safety Concerns: Feels Safe At This Time Smoking Status: Never smoker Hx Alcohol Use: No Hx Substance Use: No Physical Exam Physical Exam: Physical Exam: Constitutional: appearance over nourished, healthy Ears, Nose, Mouth and Throat: mucous membranes moist, no injection and skin normal, eyes normal Cardiovascular: normal S-1 and S-2 and regular rate and rhythm Respiratory: clear to auscultation (CTA) and no rales, ronchi or wheeze Musculoskeletal: no peripheral edema and good distal pulses Skin: no stigmata of neurocutaneous disease noted and normal and intact Eyes: extraocular muscles intact (EOMI) and pupils equal, round and reactive to light (PERRL), gross visual almeida intact NEUROLOGIC EXAMINATION: Mental status: Alert and interactive Oriented to full date and location Oriented to person Speech fluent with no evidence of aphasia Cranial Nerves smile eye brow raise symmetric, tongue midline Reflexes: Deep tendon reflexes were symmetrical and graded 2/5. down going toes Sensory: light touch, cool touch and vibration intact Coordination: finger to nose no bipass. rapid hand movements intact, bishop to heel no dysmetry Gait/Stance: Posture normal sitting up in bed Motor: Negative for pronator drift of out stretched arms with eyes closed. Strength: biceps triceps hand kitchen porter 5/5 bilaterally, hip flex patellar/plantar flex ext 5/5 Results & Data Vital Signs (Past 12 Hours) Vital Signs Temp Pulse Resp BP Pulse Ox 03/24/19 11:07 36.5 C 67 17 118/67 94 03/24/19 07:05 36.6 C 73 17 133/69 95 03/24/19 03:22 36.7 C 72 18 113/64 94 Laboratory Results Abnormal lab results 03/23/19 03/23/19 03/23/19 Range/Units 15:33 15:33 20:53 Immature Gran # (Auto) 0.03 H (0.00-0.02) K/uL [place] # (Auto) 0.73 H (0.11-0.59) K/uL BUN 20 H (7-18) mg/dl Creatinine 1.47 H (0.6-1.4) mg/dl Glucose 101 H (70-99) mg/dl Troponin I 0.051 H* 0.067 H* (0-0.045) ng/ml Albumin (3.4-5.0) gm/dl Triglycerides (0-150) mg/dl 03/24/19 Range/Units 02:52 Immature Gran # (Auto) (0.00-0.02) K/uL [place] # (Auto) (0.11-0.59) K/uL BUN (7-18) mg/dl Creatinine (0.6-1.4) mg/dl Glucose (70-99) mg/dl Troponin I 0.056 H* (0-0.045) ng/ml Albumin 3.3 L (3.4-5.0) gm/dl Triglycerides 162 H (0-150) mg/dl Diagnostic Findings CT A/P-There is faint stranding suggested around the pancreatic head. Correlate clinically and with serum amylase/lipase levels for evidence of mild acute pancreatitis. There is asymmetric cortical atrophy of the left kidney as compared to the right. There is moderate left-sided hydronephrosis with postoperative change is seen at the ureteropelvic junction. This is similar to the 2011 examination. Correlation with the patient's urological history will be required. Chest CTA-No evidence of acute pulmonary embolism no evidence of thoracic aortic aneurysm or dissection No evidence of focal pulmonary consolidation 3 cm right lobe thyroid nodule. Nonemergent thyroid ultrasonography is recommended in follow-up
[2019-03-24] MEDS ORDERED: GADOBUTROL 65ML VIAL IV PRN (20:25)
--- NOTE | 2019-03-24 20:49 | Magnetic Resonance Report ---
MR cervical spine wo/w con HISTORY: Pain. Neuropathy. band like pain in abdomen TECHNIQUE: Multiplanar multisequence MRI of the cervical spine was performed both before and after th e use of intravenous contrast. COMPARISON STUDY: None. FINDINGS: Enhancing mass immediately posterior to the C4-C6 components of the cervical spine. This is within the spinal canal and appears to be compressing the spinal cord to the right. At enhances uniformly. No additional foci of enhancement are appreciated. Dimensions are approximately 3 x 2 x 1.5 cm. Study is negative for disc herniation or spinal stenosis. Diagnostic considerations include the possibility of meningioma, neurofibroma, or a typical ependymom a. IMPRESSION: 1. Enhancing mass within the spinal canal 2. This compresses the spinal cord to the right and appears to be primarily intradural extra medullar y. 3. Dimensions are approximately 3.0 x 2.0 x 1.5 cm. 4. Exact separation from the cord itself is not possible, possibly due to compression changes. 5. Diagnostic considerations best include meningioma, neurofibroma, or atypical ependymoma 6. A focal metastatic process cannot be excluded. The above report was generated using voice recognition software. It may contain grammatical, syntax or spelling errors. Electronically signed by: Selwyn Rock M.D. 03/24/2019 8:48 PM
--- NOTE | 2019-03-24 20:52 | Magnetic Resonance Report ---
MR thoracic spine wo/w con HISTORY: Pain band like pain in abdomen TECHNIQUE: Multiplanar multisequence MRI of the thoracic spine was performed both before and after th e intravenous administration of contrast. COMPARISON: None. FINDINGS: Alignment and curvature are intact. No fracture or subluxation. No significant central canal or neura l foraminal narrowing. Minimal multilevel disc bulges showing no significant impact the cervical cord . No abnormal postcontrast enhancement. IMPRESSION: 1. No evidence of disc herniation or spinal stenosis. 2. No abnormal postcontrast enhancement. 3. Minimal disc bulges at several levels with no significant impact upon the thoracic cord or spinal canal. The above report was generated using voice recognition software. It may contain grammatical, syntax or spelling errors. Electronically signed by: Selwyn Rock M.D. 03/24/2019 8:50 PM
[2019-03-25] MEDS: AMLODIPINE BESYLATE 5 MG TAB PO SCH (08:00)
--- NOTE | 2019-03-25 12:07 | Discharge Summary ---
Date of Service March 25, 2019 Admission HPI Per Admitting Provider Pt is 58 y/o M without known significant PMH presented to ER with c/o rubber band like tightness or stretching sensation around upper abdomen. Pt describes as radiating around bilateral flank, however then reports uncertain if it starts in flank and radiates to front of abdomen. Started 5 days ago and reports increased pain. Has been eating and drinking normally without any aggravating symptoms. Denies N/V/D/C. Formed BM this morning. Denies pleuritic CP. 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 Denies any known trauma. Reports able to climb flight of stairs without any SOB or CP. Denies any CP or exertional SOB. Pt states sometimes if drinks too much soda and then lays in supine position he will have gurgling sounds to esophagus. Otherwise denies heartburn, orthopnea, PND, LE edema. Denies any skin rashes. Denies fever/chills, diaphoresis, CHILDERS, dizziness, syncope, vision changes, neck pain, palpitations, cough, sore throat, choking, otalgia, rhinorrhea, paresthesias, weakness, extremity weakness, extremity edema, rashes, hematuria, dysuria, urinary retention, urinary frequency, melena, hematochezia. Pt reports hx L renal surgery in past (is unsure of diagnosis and procedure), h/o appendectomy, cholecystectomy. 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 No epistaxis since. In ER: BP left arm: 160/73; BP right arm: 153/73 Admission Exam Per Admitting Provider General: no acute distress, overweight Head: normocephalic, atraumatic Eyes: PERRL, EOM's intact, conjunctiva non-injected, anicteric ENT: normal inspection external ears, nose, mucous membranes moist Neck: supple, trachea midline Lungs: clear, no respiratory distress, no wheezing/rhonchi/rales CV: RRR, + murmur, no JVD, no pretibial edema Abd: normal BS, soft, protuberant, +healed surgical scars, no rashes noted, mild tenderness to palpation epigastric without rebound or guarding, no CVA tenderness to palpation Back: no spinous process tenderness to palpation, no rashes, ROM intact without increased discomfort symptoms Ext: no cyanosis, no calf tenderness; ROM intact, distal pulses intact, sensation to light touch upper and lower extremities intact Neuro: A&O x 3, no focal deficits noted, normal affect Skin: warm, dry Principal Diagnosis 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 СВЕТЛАНА HTN CP Elevated Trop CKD Discharge Exam Physical Exam Gen-AAO x 3, NAD, Afebrile Head-NCAT, EOMI, PERRLA, Anicteric Sclera, No Posterior Pharyngeal Erythema Neck-Supple, No JVD, No Thyromegaly, No Masses, No LAD, No Bruits Lungs-Clear to Auscultation Bilaterally, No Rales, No Rhonchi, No Wheezing, No Crepitus Chest-No S4, +S1, +S2, No S3, No Murmurs, No Rubs, No Gallops, No Ectopy Abdomen-Soft, Bowel Sounds Present, Non Tender, Non Distended, No Hepatomegaly, No Splenomegaly, No Palpable Masses, No Rebound, No Rigidity, No Guarding Musculoskeletal-Full Range of Motion Bilaterally, No CVAT Extremities-No Cyanosis, No Clubbing, No Edema Nuero-Cranial Nerves II-XII grossly intact, Motor WNL, DTRs WNL, Strength WNL, Non Focal Psych-Normal Mood Discharge Data Allergies Allergy/AdvReac Type Severity Reaction Status Date / Time aspirin AdvReac Mild NOSE BLEEDS Verified 03/23/19 15:31 Penicillins AdvReac Mild "MAKES ME Verified 03/23/19 18:29 SICK." Consultations 03/23/19 16:47 ED Decision to Admit Stat 03/23/19 20:11 Consult Neurology Routine Ordered Studies 03/23/19 15:14 CT abd pelvis wo con Stat 03/23/19 17:45 CT angio chest dissec wo/w con Stat 03/24/19 15:54 MR cervical spine wo/w con IMPRESSION: 1. Enhancing mass within the spinal canal 2. This compresses the spinal cord to the right and appears to be primarily intradural extra medullary. 3. Dimensions are approximately 3.0 x 2.0 x 1.5 cm. 4. Exact separation from the cord itself is not possible, possibly due to compression changes. 5. Diagnostic considerations best include meningioma, neurofibroma, or atypical ependymoma 6. A focal metastatic process cannot be excluded. MR thoracic spine wo/w con IMPRESSION: 1. No evidence of disc herniation or spinal stenosis. 2. No abnormal postcontrast enhancement. 3. Minimal disc bulges at several levels with no significant impact upon the thoracic cord or spinal canal. Current Diagnoses Nontoxic single thyroid nodule (03/23/19) Essential (primary) hypertension (03/23/19) Disorder of kidney and ureter, unspecified (03/23/19) Unspecified abdominal pain (03/23/19) Paresthesia of skin (03/23/19) Abnormal levels of other serum enzymes (03/23/19) Allergies aspirin Adverse Reaction (Mild, Verified 03/23/19 15:31) NOSE BLEEDS Penicillins Adverse Reaction (Mild, Verified 03/23/19 18:29) "MAKES ME SICK." Height/Weight/Isolation Height 5 ft 4 in Weight 82.5 kg Chemistry 03/23/19 03/24/19 15:33 02:52 Sodium 140 140 Potassium 4.2 4.1 Chloride 106 106 Carbon Dioxide 27 27 Anion Gap 7.0 7.0 BUN 20 H 18 Creatinine 1.47 H 1.35 Glucose 101 H 93 Urinalysis 03/23/19 16:01 Urine Color Yellow Urine Appearance Clear Urine pH 6.5 Ur Specific [place] 1.021 Urine Protein Negative Urine Glucose (UA) Negative Urine Ketones Negative Urine Blood Negative Urine Nitrite Negative Urine Bilirubin Negative Hospital Course (1) Paresthesia: (2) Cervical spinal mass: Neurosurgery from [place] will call him to set up outpatient appointment (3) Abdominal pain: Pt presented with upper abdominal tightness like sensation with radiation to bilateral flank x 5 days. Reported paresthesia to trunk. No fever/chills, N/V/D/C. No CP/SOB In ER afebrile, P: 91, BP: 153/75, 96% on RA. No leukocytosis. No anemia, normal LFTs, normal lipase, UA WNL. CT ABD/PELVIS W/O CONTRAST:1. There is faint stranding suggested around the pancreatic head. 2. There is asymmetric cortical atrophy of the left kidney as compared to the right. 3. There is moderate left-sided hydronephrosis with postoperative change is seen at the ureteropelvic junction. This is similar to the 2011 examination. CTA CHEST:1. No evidence of acute pulmonary embolism 2. No evidence of thoracic aortic aneurysm or dissection 3. No evidence of focal pulmonary consolidation 4. 3 cm right lobe thyroid nodule. Nonemergent thyroid ultrasonography is recommended in follow-up DDX: early pancreatitis, uncertain neurology etiology -Pepcid and Tums trial to see if aids in symptoms -clear liquids -CBC, CMP, lipase in am (4) Elevated troponin: No CP, SOB. no angina symptoms. In ER Troponin: 0.05. EKG: sinus rhythm, T wave inversion lateral. No prior EKG to compare R/O ACS. No reported h/o HTN, however BP elevated in ER. Troponin may be elevated with renal insuffiency -Monitor Vitals -Given aspirin -Echo in progress -Nitro prn CP and repeat EKG for CP (5) Renal insufficiency: Cr:1.47. Past labs from 2010 with Cr: 1.9 down trended to 1.4 during that admission -Monitor renal functions -Avoid nephrotoxic agents (6) HTN (hypertension): BP 118/67 No hx diagnosed HTN in past (7) Thyroid nodule: CTA Chest: 3 cm right lobe thyroid nodule. -Pt will need further out patient follow up, recommend thyroid ultrasonography DVT Prophylaxis -Low risk, Ambulate Follows with Dr Alonso in [place] for routine care ROS-No Headache, No Visual Changes, No Nausea, No Vomiting, No Fever, No Chills, No Neck Pain or Stiffness, No Chest Pain, No Palpitations, No SOB, No MAHONEY, No Cough, No Sputum, No Wheezing, +Abdominal Pain, No Diarrhea, No Hematemesis, No Hemoptysis, No Unexpected Weight Loss, No Flank pain, No Melena, No Hematochezia, No Frequency, No Urgency, No Burning, No Hematuria, No Rashes, No Diaphoresis. Appetite is Normal Physical Exam Gen-AAO x 3, NAD, Afebrile Head-NCAT, EOMI, PERRLA, Anicteric Sclera, No Posterior Pharyngeal Erythema Neck-Supple, No JVD, No Thyromegaly, No Masses, No LAD, No Bruits Lungs-Clear to Auscultation Bilaterally, No Rales, No Rhonchi, No Wheezing, No Crepitus Chest-No S4, +S1, +S2, No S3, No Murmurs, No Rubs, No Gallops, No Ectopy Abdomen-Soft, Bowel Sounds Present, Non Tender, Non Distended, No Hepatomegaly, No Splenomegaly, No Palpable Masses, No Rebound, No Rigidity, No Guarding Musculoskeletal-Full Range of Motion Bilaterally, No CVAT Extremities-No Cyanosis, No Clubbing, No Edema Nuero-Cranial Nerves II-XII grossly intact, Motor WNL, DTRs WNL, Strength WNL, Non Focal Psych-Normal Mood Total Time Total Time Spent Total Time Spent (In Minutes): 1 hour Total Time Includes: Examination of the Patient, Discharge Planning, Medication Reconciliation and Communication With Other Providers Discharge Plan Discharge Items Patient Disposition: Home - Self-Care Reason For Visit: ABDOMINAL PAIN,ELEVATED TROPONIN Discharge Diagnosis: 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 [Primary Care Provider] - Diet: Regular Addtl Provider Instructions: Neurosurgery from [place] will be calling you to set up appointment You need a Thyroid ultrasound-There is a right lobe thyroid goiter with a 3 cm nodule. Nonemergent ultrasonography is recommended in follow-up Prescriptions: New amlodipine [Norvasc] 5 mg Tablet 5 mg PO QAM Qty: 30 RF: 0 Continued Men's One Daily 400-20-300 mcg Tablet 1 tab PO DAILY RF: 0 Visit Report Forms: Smoking Cessation Stand-Alone Forms: [employer]/Other Patient Handouts: Thyroid Common Probs Discharge Orders: Discharge Order (Routine); Ordered 03/25/19 Ordered By: Pawel Lujan Admission Data Admit Date/Time: 03/23/19 18:27 Attending Provider: Pawel Lujan Admit Provider: Eneida Gutierrez Primary Care Provider: Mazin Alonso Other Providers: Holly Ching ; Eneida Gutierrez Service: Telemetry Medical Other Pending Studies at Discharge: No
== END 2019-03-25 13:11 | disposition home or self-care (01) | DRG 93 ==
LOC: ED 14:58 → 2W 18:27 → SUATTDRO 18:27 → 2W 19:18

== ENCOUNTER 2021-04-16 18:19 | Inpatient (IN) ==
--- NOTE | 2021-04-16 18:36 | Emergency Department Note ---
History of Present Illness General Chief complaint: Shortness of Breath/Dyspnea Stated complaint: SOB, COVID POSITIVE Time Seen by Provider: 04/16/21 18:21 Source: patient and EMS Mode of arrival: EMS Limitations: clinical acuity History of Present Illness Provider complaint: Hypoxia, shortness of breath Onset (ago): week(s) 1 Associated symptoms: + cough, + fever/chills, + loss of appetite and + shortness of breath; no chest pain, no headaches or no nausea/vomiting Treatments prior to arrival: other This is a 60-year-old male presents emergency department via EMS due to shortness of breath and hypoxia. Patient states his is Covid positive and he has had a cough and slight shortness of breath for little more than a week. He states he was not tested as he was presumed to be positive based on his 's test. He states that her family doctor put them both on prednisone to help treat it. He states his has been periodically checking his oxygen with her pulse ox and today found his level to be 68%. She called 911. EMS reports on her room air at their arrival he was 70%. He was placed on a nasal cannula and then titrated up on a nonrebreather. On 10 L on a nonrebreather patient was still 80%, they continued to increase the oxygen and on arrival here at 15 L/min patient was 88%. Patient states he has had a mostly dry cough for the last week as well. EMS reports the patient felt warm and on their check had a fever of 10 0.1. Patient denies any fevers at home. Patient denies any accompanying chest pain, abdominal pain, nausea, vomiting, rash, swelling. He denies any history of asthma or COPD, states he was never a smoker. Pt seen during a time of high acuity and national emergency pandemic while wearing PPE. Home Medications Medication Instructions Recorded Confirmed Type wsljslcg-wyihpcvu-xpsrb acid 400 1 tab PO QAM 03/23/19 04/16/21 History mcg-vit K 20 mcg-lycop 300 mcg tablet (Men's One Daily) carvedilol 6.25 mg tablet (Coreg) 6.25 mg PO BID 08/27/19 04/16/21 History prednisone 20 mg tablet See Rx Instructions .ROUTE .COMPLEX 04/16/21 04/16/21 History Allergies Allergy/AdvReac Type Severity Reaction Status Date / Time aspirin AdvReac Mild NOSE BLEEDS Verified 04/16/21 19:23 Penicillins AdvReac Mild "MAKES ME Verified 04/16/21 19:23 SICK." Past Med/Surg History Medical History (Updated 04/17/21 @ 19:11 by Gisela De La Cruz DO) Chronic kidney disease PATIENT DENIES Hydronephrosis of left kidney Hypertension Thyroid nodule JUST WATCHING Surgical History History of abdominal surgery H/O left renal surgery> LOCK HAVEN > OVER 10 YRS AGO History of appendectomy History of cholecystectomy Hx of neck surgery C4,5 6> REMOVED MASS FROM SPINAL CORD > [facility] > APR 2019> DIFFICULTY TURNING HEAD TO LEFT SIDE Family History Father Cancer Social History Smoking Status: Never smoker Second Hand Exposure: No; Do You Dip or Chew Tobacco: No; Tobacco Cessation Education Requested by Patient: No Hx Alcohol Use: No Hx Substance Use: No Preferred Language: Japanese Communication Ability: Effective Buttonhole Maker Required: No Beliefs That Will Affect Care: None marital status: Current Living Situation: Family Current Living Situation Comment: [id number] lives with patient also current occupational status: 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 Other Information That Helps Us Care for You: No Feels Safe at Home: Yes Safety Concerns: Feels Safe At This Time Assistive Devices: None Review of Systems A total of 10 systems reviewed and were otherwise negative All systems reviewed & are unremarkable except as noted in HPI & below Physical Exam Vital Signs Vital Signs - 24 hr 04/16/21 19:06 04/16/21 19:15 04/16/21 19:30 Pulse Rate 95 H 85 Pulse Rate [Apical] 86 Pulse Rate from SpO2 Sensor 94 H 85 Respiratory Rate 20 27 H 19 Respiratory Effort / Characteristics Spontaneous Respiratory Depth Respiratory Pattern Blood Pressure Blood Pressure Mean Pulse Oximetry 85 L 87 L 92 Oxygen Delivery Method High Flow Nasal Cannula High Flow Nasal Cannula BiPAP Oxygen Flow Rate 40 Fraction of Inspired Oxygen 100 04/16/21 19:45 04/16/21 20:02 04/16/21 20:15 Pulse Rate 81 84 75 Pulse Rate [Apical] Pulse Rate from SpO2 Sensor 82 84 76 Respiratory Rate 18 25 H 19 Respiratory Effort / Characteristics Respiratory Depth Respiratory Pattern Blood Pressure 143/60 H 126/76 Blood Pressure Mean 87 92 Pulse Oximetry 95 96 95 Oxygen Delivery Method BiPAP BiPAP BiPAP Oxygen Flow Rate Fraction of Inspired Oxygen 04/16/21 20:30 04/16/21 20:46 04/16/21 20:56 Pulse Rate 72 75 75 Pulse Rate [Apical] Pulse Rate from SpO2 Sensor 72 75 Respiratory Rate 27 H 22 20 Respiratory Effort / Characteristics Spontaneous Respiratory Depth Normal Respiratory Pattern Regular Blood Pressure 97/56 L 125/86 Blood Pressure Mean 69 99 Pulse Oximetry 95 95 94 Oxygen Delivery Method BiPAP BiPAP Oxygen Flow Rate Fraction of Inspired Oxygen 80 04/16/21 21:00 04/16/21 21:15 04/16/21 21:30 Pulse Rate 73 70 71 Pulse Rate [Apical] Pulse Rate from SpO2 Sensor 73 71 71 Respiratory Rate 23 21 21 Respiratory Effort / Characteristics Respiratory Depth Respiratory Pattern Blood Pressure 105/56 L 107/53 L 101/43 L Blood Pressure Mean 72 71 62 Pulse Oximetry 94 94 95 Oxygen Delivery Method BiPAP BiPAP BiPAP Oxygen Flow Rate Fraction of Inspired Oxygen 04/16/21 21:45 04/16/21 22:00 04/16/21 22:15 Pulse Rate 67 66 65 Pulse Rate [Apical] Pulse Rate from SpO2 Sensor 67 66 65 Respiratory Rate 22 20 21 Respiratory Effort / Characteristics Respiratory Depth Respiratory Pattern Blood Pressure 88/48 L 88/43 L 100/46 L Blood Pressure Mean 61 58 64 Pulse Oximetry 94 94 95 Oxygen Delivery Method BiPAP BiPAP BiPAP Oxygen Flow Rate Fraction of Inspired Oxygen 04/16/21 22:31 Pulse Rate 71 Pulse Rate [Apical] Pulse Rate from SpO2 Sensor 71 Respiratory Rate 14 Respiratory Effort / Characteristics Respiratory Depth Respiratory Pattern Blood Pressure 139/90 Blood Pressure Mean 106 Pulse Oximetry 97 Oxygen Delivery Method BiPAP Oxygen Flow Rate Fraction of Inspired Oxygen GENERAL: alert, unwell appearing, well nourished, no distress, non-toxic, NRB in place EYE EXAM: normal conjunctiva, PERRL and EOM's grossly intact OROPHARYNX: no exudate, no erythema, lips, buccal mucosa, and tongue normal and mucous membranes are moist NECK: supple, no nuchal rigidity, no adenopathy, non-tender LUNGS: Clear to auscultation. Normal chest wall mechanics, no w/r/r, frequent cough, speaks in short phrases, mild tachypnea HEART: no murmurs, S1 normal and S2 normal ABDOMEN: abdomen soft, non-tender, normo-active bowel sounds, no masses, no rebound or guarding. BACK: Back is symmetrical on inspection and there is no deformity, no midline tenderness, no CVA tenderness. SKIN: no rashes and no bruising UPPER EXTREMITIES: upper extremities are grossly normal. FROM, nml pulses b/l. LOWER EXTREMITIES: No pitting edema. FROM, nml pulses b/l. NEURO EXAM: Normal sensorium, cranial nerves II-XII grossly intact, normal speech, no gross weakness of arms, no gross weakness of legs. Gross sensation intact. Course Course 1844: Pt 88% on HFNC. RT titrating settings. 1901: Pt now on BiPAP. 1915: SAts at 90% on Bipap. 1939: Discussed intubation with pt. He is unsure. Will contact . 1955: Discussed with . She states she would not want him intubated but it is his decision. Will take a phone to the patient and allow them to discuss. I did make both of them aware of my concern given his situation and difficulty trying to obtain acceptable oxygenation in a patient with coronavirus and of his respiratory symptoms who presented with significant hypoxia. 2021: Patient states he doesn't want intubated. 2110: Discussed with on-call hospitalist. Administered Medications Carvedilol (Carvedilol 6.25 Mg Tab) 6.25 mg PO BID [facility] Stop: 05/17/21 20:59 Last Admin: 04/17/21 20:11 Dose: 6.25 mg Documented by: [id number] Guaifenesin (Guaifenesin 600 Mg Tabcr) 600 mg PO BID@0800,1999 [facility] Stop: 05/17/21 00:00 Last Admin: 04/17/21 20:11 Dose: 600 mg Documented by: [id number] Admin: 04/17/21 08:17 Dose: Not Given Documented by: [id number] Admin: 04/17/21 02:06 Dose: 600 mg Documented by: [id number] Heparin Sodium (Porcine) (Heparin Sod 5,000 Unit/0.5 Ml Vial) 5,000 units SQ Q8 [facility] Stop: 05/17/21 05:59 Last Admin: 04/17/21 20:12 Dose: 5,000 units Documented by: [id number] Admin: 04/17/21 14:25 Dose: 5,000 units Documented by: [id number] Admin: 04/17/21 06:01 Dose: 5,000 units Documented by: [id number] Dexamethasone 6 mg/ Syringe 1.5 mls @ 1 mls/min IV DAILY [facility] Stop: 05/17/21 08:59 Last Admin: 04/17/21 08:18 Dose: 1 mls/min Documented by: [id number] Sodium Chloride (Sodium Chloride 0.9% 10ml Flush) 30 ml IV Q24H [facility] Stop: 04/20/21 22:01 Last Admin: 04/17/21 23:23 Dose: 30 ml Documented by: [id number] Discontinued Medications Albuterol (Albut/Ipratrop 3mg/0.5mg Neb 3 Ml Vial) 3 ml NEB NOW STA Stop: 04/16/21 18:59 Last Admin: 04/16/21 19:05 Dose: 3 ml Documented by: [id number] Albuterol (Albuterol Hfa 8 Gm Inhaler) 2 puffs INH QIDR [facility] Stop: 05/17/21 06:59 Last Admin: 04/17/21 07:12 Dose: Not Given Documented by: [id number] Dexamethasone (Dexamethasone Sod Inj 4 Mg/Ml Vial) 6 mg IV ONE STA Stop: 04/16/21 19:30 Last Admin: 04/16/21 19:35 Dose: 6 mg Documented by: [id number] Acetaminophen (Ofirmev) 1,000 mg in 100 mls @ 400 mls/hr IV NOW STA Stop: 04/16/21 19:12 Last Infusion: 04/16/21 19:42 Dose: 0 mls/hr Documented by: [id number] Admin: 04/16/21 19:15 Dose: 400 mls/hr Documented by: [id number] Sodium Chloride (Nss 1000ml) 1,000 mls @ 250 mls/hr IV .Q4H [facility] Stop: 05/16/21 20:44 Last Infusion: 04/16/21 23:49 Dose: 0 mls/hr Documented by: [id number] Admin: 04/16/21 21:23 Dose: 250 mls/hr Documented by: [id number] Remdesivir 200 mg/ Sodium (Chloride) 250 mls @ 125 mls/hr IV ONE STA; Protocol Stop: 04/17/21 00:44 Last Infusion: 04/17/21 01:01 Dose: 0 mls/hr Documented by: [id number] Admin: 04/16/21 23:50 Dose: 125 mls/hr Documented by: [id number] Albumin Human (Albumin 25%) 12.5 gm in 50 mls @ 50 mls/hr IV Q1H [facility] Stop: 04/17/21 01:59 Last Infusion: 04/17/21 02:06 Dose: 0 mls/hr Documented by: [id number] Admin: 04/17/21 01:33 Dose: 50 mls/hr Documented by: [id number] Infusion: 04/17/21 01:30 Dose: 50 mls/hr Documented by: [id number] Admin: 04/17/21 00:30 Dose: 50 mls/hr Documented by: [id number] Albumin Human (Albumin 25%) 12.5 gm in 50 mls @ 50 mls/hr IV Q1H [facility] Stop: 04/17/21 08:14 Last Infusion: 04/17/21 09:20 Dose: 0 mls/hr Documented by: [id number] Admin: 04/17/21 08:18 Dose: 50 mls/hr Documented by: [id number] Infusion: 04/17/21 08:17 Dose: 0 mls/hr Documented by: [id number] Admin: 04/17/21 06:18 Dose: 50 mls/hr Documented by: [id number] Remdesivir 100 mg/ Sodium (Chloride) 250 mls @ 250 mls/hr IV ONE ONE; Protocol Stop: 04/17/21 22:59 Last Infusion: 04/17/21 23:24 Dose: 0 mls/hr Documented by: [id number] Admin: 04/17/21 22:11 Dose: 250 mls/hr Documented by: [id number] Sodium Chloride (Sodium Chloride 0.9% 10ml Flush) 30 ml IV Q24H [facility] Stop: 04/20/21 23:50 Last Admin: 04/17/21 01:02 Dose: 30 ml Documented by: [id number] Critical Care Time Critical Care Time: Yes Total Critical Care Time: 52 Critical care of 52 min performed to assess and manage high likelihood of life- threatening respiratory failure, involving labs and imaging performed with assessment to evaluate respiratory failure diagnosis with frequent reassessment. This time includes bedside time, treatment discussions with patien t/family/consultants, documentation time and excludes procedure time. Medical Decision Making Differential Diagnosis Differential diagnoses includes but is not limited to pneumonia, bronchitis, COPD/Asthma exacerbation, pneumothorax, pulmonary embolism, congestive heart failure, acute coronary syndrome Medical Records Attestation: I reviewed the patient's medical records. Home Medications Current Medication List: was personally reviewed by me Laboratory Data Attestation: I reviewed the patient's lab results. Result diagrams: 04/17/21 07:01 04/17/21 07:01 Lab Results 04/16/21 04/16/21 04/16/21 Range/Units 18:40 18:40 18:40 WBC 7.06 (4.8-10.8) K/uL RBC 5.35 (4.7-6.1) M/uL Hgb 15.5 (14.0-18.0) g/dL Hct 46.1 (42-52) % MCV 86.2 (80-100) fL MCH 29.0 (25-34) pg MCHC 33.6 (32-36) g/dL RDW Std Deviation 42.8 (36.4-46.3) fL RDW Coeff of Kalani 13.5 (11.5-14.5) % Plt Count 280 (130-400) K/uL MPV 9.6 (7.4-10.4) fL Immature Gran % (Auto) 1.0 % Neut % (Auto) 79.6 % Lymph % (Auto) 9.5 % Assumption % (Auto) 9.6 % Eos % (Auto) 0.0 % Baso % (Auto) 0.3 % Neut # (Auto) 5.62 (1.4-6.5) K/uL Lymph # (Auto) 0.67 L (1.2-3.4) K/uL Assumption # (Auto) 0.68 H (0.11-0.59) K/uL Eos # (Auto) 0.00 (0-0.5) K/uL Baso # (Auto) 0.02 (0-0.2) K/uL Immature Gran # (Auto) 0.07 H (0.00-0.02) K/uL ABG pH (7.35-7.45) ABG pCO2 (35-46) mmHg ABG pO2 (80-95) mmHg ABG HCO3 (19-24) mmol/L ABG O2 Saturation (90-95) % ABG Base Excess (-9-1.8) mEq/L Jose Alejandro Test (Pos) Barometric Pressure mm/Hg Oxygen Given Sodium 135 L (136-145) mmol/L Potassium 4.2 (3.5-5.1) mmol/L Chloride 102 (98-107) mmol/L Carbon Dioxide 26 (21-32) mmol/L Anion Gap 7.0 (3-11) BUN 30 H (7-18) mg/dl Creatinine 1.62 H (0.6-1.4) mg/dl Est Cr Clr Drug Dosing 58.3 ml/min Est GFR ( Amer) 52.7 ml/min Est GFR (Non-Af Amer) 45.5 ml/min BUN/Creatinine Ratio 18.8 (10-20) Glucose 128 H (70-99) mg/dl Calcium 8.8 (8.5-10.1) mg/dl Magnesium 2.7 H (1.8-2.4) mg/dl Total Bilirubin 0.8 (0.2-1) mg/dl AST 99 H (15-37) U/L ALT 92 H (12-78) U/L Alkaline Phosphatase 134 H (45-117) U/L Troponin I 0.139 H* (0-0.045) ng/ml C-Reactive Protein 8.50 H (0-0.29) mg/dl NT-Pro-B Natriuret Pep 2529 H (0-900) pg/ml Total Protein 7.7 (6.4-8.2) gm/dl Albumin 2.8 L (3.4-5.0) gm/dl Globulin 4.9 H (2.5-4.0) gm/dl Albumin/Globulin Ratio 0.6 L (0.9-2) Lipase 403 H (73-393) U/L COVID-19 Eval Order SARS-CoV-2 (PCR) (Negative) 04/16/21 04/16/21 04/16/21 Range/Units 18:45 18:45 19:54 WBC (4.8-10.8) K/uL RBC (4.7-6.1) M/uL Hgb (14.0-18.0) g/dL Hct (42-52) % MCV (80-100) fL MCH (25-34) pg MCHC (32-36) g/dL RDW Std Deviation (36.4-46.3) fL RDW Coeff of Kalani (11.5-14.5) % Plt Count (130-400) K/uL MPV (7.4-10.4) fL Immature Gran % (Auto) % Neut % (Auto) % Lymph % (Auto) % Assumption % (Auto) % Eos % (Auto) % Baso % (Auto) % Neut # (Auto) (1.4-6.5) K/uL Lymph # (Auto) (1.2-3.4) K/uL Assumption # (Auto) (0.11-0.59) K/uL Eos # (Auto) (0-0.5) K/uL Baso # (Auto) (0-0.2) K/uL Immature Gran # (Auto) (0.00-0.02) K/uL ABG pH 7.48 H (7.35-7.45) ABG pCO2 35 (35-46) mmHg ABG pO2 127 H (80-95) mmHg ABG HCO3 26 H (19-24) mmol/L ABG O2 Saturation 98.8 H (90-95) % ABG Base Excess 2.6 H (-9-1.8) mEq/L Jose Alejandro Test Pos (Pos) Barometric Pressure 733.8 mm/Hg Oxygen Given 100% Sodium (136-145) mmol/L Potassium (3.5-5.1) mmol/L Chloride (98-107) mmol/L Carbon Dioxide (21-32) mmol/L Anion Gap (3-11) BUN (7-18) mg/dl Creatinine (0.6-1.4) mg/dl Est Cr Clr Drug Dosing ml/min Est GFR ( Amer) ml/min Est GFR (Non-Af Amer) ml/min BUN/Creatinine Ratio (10-20) Glucose (70-99) mg/dl Calcium (8.5-10.1) mg/dl Magnesium (1.8-2.4) mg/dl Total Bilirubin (0.2-1) mg/dl AST (15-37) U/L ALT (12-78) U/L Alkaline Phosphatase (45-117) U/L Troponin I (0-0.045) ng/ml C-Reactive Protein (0-0.29) mg/dl NT-Pro-B Natriuret Pep (0-900) pg/ml Total Protein (6.4-8.2) gm/dl Albumin (3.4-5.0) gm/dl Globulin (2.5-4.0) gm/dl Albumin/Globulin Ratio (0.9-2) Lipase (73-393) U/L COVID-19 Eval Order Covid19 at [facility] SARS-CoV-2 (PCR) POSITIVE A* (Negative) Imaging Data Radiologist's Impression: Chest X-Ray 04/16/21 18:29 XR chest 1V portable CLINICAL HISTORY: sob COMPARISON STUDY: October [id number] FINDINGS: No pneumothorax. No pleural effusion. Patchy airspace opacities are seen bilaterally, predominantly within lower lung region. Cardiomediastinal silhouette is enlarged. Pulmonary vasculature is obscured.. Osseous structures: unremarkable IMPRESSION: 1. Cardiomegaly with patchy airspace opacities which seen bilaterally, could represent pneumonia or/and pulmonary edema. ACT 112: Negative or not required by law. The above report was generated using voice recognition software. It may contain grammatical, syntax or spelling errors. Electronically signed by: Hayde Betancourt DO 04/16/2021 7:42 PM [facility] Narrative This is an ill-appearing 60-year-old male who presents via EMS due to hypoxia noted at home by the patient's who is Covid positive. Patient states he has felt mildly short of breath with exertion, and states his noticed that his oxygen level at home was 68% and called 911. Patient denies any prior pulmonary history. Patient immediately transitioned from the nonrebreather at 15 L/min with the patient was still satting in the mid 80s to a high flow nasal cannula with the assistance of RT. Labs drawn and sent and chest x-ray ordered. He did take some time while titrating up the settings to see if the patient's oxygenation and work of breathing would improve. Patient then transitioned to BiPAP fairly quickly. Chest x-ray consistent with Covid pneumonia and active infection. Patient's Covid swab was ultimately positive. While on BiPAP, patient was maxed out on settings and was at 90%. I had a lengthy discussion with the patient at bedside and then with his over the phone regarding need for intubation as I had continued concern for his condition. After extensive discussion, they stated they did not want intubation. While patient was on BiPAP due to his persistent borderline hypoxia, patient was assisted by RT into the left lateral recumbent and then prone position. With this oxygenation did improve to the mid 90s. Patient did have an elevated troponin which at this time I suspect is likely demand ischemia from his hypoxia. I do not suspect primary ACS, pericarditis, myocarditis, or PE. At this time patient is not stable enough for CT angiography. Patient does have a history of chronic kidney disease per the . I suspect perhaps component of evolving СВЕТЛАНА on top of this. Case was discussed with hospitalist. Patient continue be monitored closely, and I rechecked the patient frequently throughout his time in the emergency room. An order was placed for continuous cardiac monitoring. The monitor shows a rate of _86_ with _normal sinus_ rhythm. Impression & Plan Acute hypoxemic respiratory failure, Elevated troponin, Chronic renal insufficiency, COVID-19 Discharge Plan Visit Data Chief Complaint: Shortness of Breath/Dyspnea Stated Complaint: SOB, COVID POSITIVE ED Provider: Gisela De La Cruz Discharge Problem: Acute hypoxemic respiratory failure, Elevated troponin, Chronic renal in sufficiency, COVID-19 Patient Disposition: Admitted As Inpatient Condition: Critical Discharge Instructions Interventions: ED Discharge Assessment Last Done: 04/16/21 23:12 Discharge Problem: Chronic renal insufficiency Qualifiers: Chronic kidney disease stage: unspecified stage Qualified Code(s): N18.9 - Chronic kidney disease, unspecified
[2021-04-16] MEDS ORDERED: ALBUT/IPRATROP 3MG/0.5MG NEB 3 ML VIAL NEB STA (18:58)
[2021-04-16] MEDS ORDERED: ACETAMINOPHEN 1,000 MG/100 ML VIAL IV STA (18:58)
[2021-04-16 19:02] LABS: Basophils # (auto) 0.02 K/uL (0-0.2); Basophils % (auto) 0.3 %; Hematocrit (blood only) 46.1 % (42-52); Hemoglobin 15.5 g/dL (14.0-18.0); Immature Granulocytes # (auto) 0.07 K/uL (0.00-0.02); Lymphocytes # (auto) 0.67 K/uL (1.2-3.4); Lymphocytes % (auto) 9.5 %; Mean Corpuscular Hgb Conc 33.6 g/dL (32-36); Mean Corpuscular Volume 86.2 fL (80-100); Mean Platelet Volume 9.6 fL (7.4-10.4); Monocytes # (auto) 0.68 K/uL (0.11-0.59); Monocytes % (auto) 9.6 %; Neutrophils # (auto) 5.62 K/uL (1.4-6.5); Neutrophils % (auto) 79.6 %; Platelet Count 280 K/uL (130-400); RDW Coefficient of Variation 13.5 % (11.5-14.5); RDW Standard Deviation 42.8 fL (36.4-46.3); Red Blood Count 5.35 M/uL (4.7-6.1); White Blood Count 7.06 K/uL (4.8-10.8)
[2021-04-16] MEDS ORDERED: dexAMETHasone 6 MG in SYRINGE 0 ML IV ONE (19:24)
[2021-04-16] MEDS ORDERED: DEXAMETHASONE SOD INJ 4 MG/ML VIAL IV STA (19:29)
[2021-04-16 19:41] LABS: Albumin Level 2.8 gm/dl (3.4-5.0); BUN Creatinine Ratio 18.8 (10-20); Calcium 8.8 mg/dl (8.5-10.1); Creatinine Clr Calc Pharmacy 58.3 ml/min; Est GFR (African American) 52.7 ml/min; Est GFR (Non-African American) 45.5 ml/min; Magnesium 2.7 mg/dl (1.8-2.4); Potassium 4.2 mmol/L (3.5-5.1)
--- NOTE | 2021-04-16 19:43 | XRay Report ---
XR chest 1V portable CLINICAL HISTORY: sob COMPARISON STUDY: October [id number] FINDINGS: No pneumothorax. No pleural effusion. Patchy airspace opacities are seen bilaterally, predominantly within lower lung region. Cardiomediastinal silhouette is enlarged. Pulmonary vasculature is obscured.. Osseous structures: unremarkable IMPRESSION: 1. Cardiomegaly with patchy airspace opacities which seen bilaterally, could represent pneumonia or/ and pulmonary edema. ACT 112: Negative or not required by law. The above report was generated using voice recognition software. It may contain grammatical, syntax o r spelling errors. Electronically signed by: Hayde Betancourt DO 04/16/2021 7:42 PM
[2021-04-16 20:11] LABS: Albumin Globulin Ratio 0.6 (0.9-2); Bilirubin,Total 0.8 mg/dl (0.2-1); Globulin 4.9 gm/dl (2.5-4.0); Total Protein 7.7 gm/dl (6.4-8.2); Troponin I 0.139 ng/ml (0-0.045)
[2021-04-16 20:34] LABS: Base Excess ABG 2.6 mEq/L (-9-1.8); HCO3 ABG 26 mmol/L (19-24); Oxygen Saturation ABG 98.8 % (90-95); PCO2 ABG 35 mmHg (35-46); PO2 ABG 127 mmHg (80-95); pH ABG 7.48 (7.35-7.45)
[2021-04-16] MEDS ORDERED: SODIUM CHLORIDE 0.9% 1000ML 1,000 ML IV SCH (20:45)
--- NOTE | 2021-04-16 22:39 | History & Physical Report ---
Date of Service April 16, 2021 Assessment & Plan (1) Acute hypoxemic respiratory failure: Plan: Secondary to severe COVID-19 pneumonia Failed outpatient treatment hypertension, BP on the lower side ARF on CRI secondary to illness Abnormal LFTs without abdominal pain complaints cervical schwannoma schwannoma status post surgery Medical telemetry Continue BiPAP Decadron Remdesivir initial dose for now Recheck chemistry before subsequent dosing (Patient was counseled regarding potential adverse effects from Remdesivir therapy and provided with patient education sheet.) Pulmonary consult if without improvement Baseline UA, monitor creatinine response to IVF, renal ultrasound if without improvement Appropriate to hold antihypertensives for now given borderline BP DVT prophylaxis. Heparin subcu DNR Patient requesting updates from providers. Ms. Ya Cedillo, contact #[phone]. Text document was generated using Opsens voice recognition software. It may contain grammatical or spelling errors. Kindly contact undersigned for clarification of any documentation item in question. History of Present Illness Chief Complaint: Shortness of breath, low oxygen Primary Care Provider: Loren Arriaza PA-C History obtained from patient, family, and records. Medical history significant for hypertension, CRI (baseline creatinine 1.4), hx cervical schwannoma status post surgery. Last confinement 2018 for paresthesia secondary to cervical spine mass. Patient eventually underwent cervical [place] [facility] Tumor found to be schwannoma. 1 week history of dry cough symptoms in shortness of breath. was sick of COVID-19. Patient has not received COVID-19 vaccination. Patient prescribed prednisone by PCP for presumptive Covid 19 infection. Worsening shortness of breath without chest pain, poor appetite. Fever 100,1 at home. Pulse ox at home noted to be 68. Patient called 911. At the ER, O2 sats noted to be 80s on room air. Decadron given at the ER. BiPAP initiated at the ER. 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 Allergies Allergy/AdvReac Type Severity Reaction Status Date / Time aspirin AdvReac Mild NOSE BLEEDS Verified 04/16/21 19:23 Penicillins AdvReac Mild "MAKES ME Verified 04/16/21 19:23 SICK." Home Medications Medication Instructions Recorded Confirmed Type bnyjevfi-kfushqej-jdrxp acid 400 1 tab PO QAM 03/23/19 04/16/21 History mcg-vit K 20 mcg-lycop 300 mcg tablet (Men's One Daily) carvedilol 6.25 mg tablet (Coreg) 6.25 mg PO BID 08/27/19 04/16/21 History prednisone 20 mg tablet See Rx Instructions .ROUTE .COMPLEX 04/16/21 04/16/21 History Past Med/Surg History Medical History (Updated 04/17/21 @ 07:47 by Dayo Perez MD) Chronic kidney disease PATIENT DENIES Hydronephrosis of left kidney Hypertension Thyroid nodule JUST WATCHING Surgical History History of abdominal surgery H/O left renal surgery> [facility] > OVER 10 YRS AGO History of appendectomy History of cholecystectomy Hx of neck surgery C4,5 6> [facility] APR [facility]> DIFFICULTY TURNING HEAD TO LEFT SIDE Family History Father Cancer Social History Smoking Status: Never smoker Second Hand Exposure: No; Do You Dip or Chew Tobacco: No; Tobacco Cessation Education Requested by Patient: No Hx Alcohol Use: No Hx Substance Use: No Preferred Language: Setswana Communication Ability: Effective Paper Supervisor Required: No Beliefs That Will Affect Care: None Current Living Situation: Family Current Living Situation Comment: [id number] lives with patient also current occupational status: employed 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 Other Information That Helps Us Care for You: No Feels Safe at Home: Yes Safety Concerns: Feels Safe At This Time Assistive Devices: Denture - Upper, Denture - Lower and Glasses Review of Systems Review of Systems: As per HPI, all 10 systems reviewed, all other ROS negative Physical Exam Physical Exam: GENERAL: Comfortable, pleasant, no respiratory distress SKIN: Normal color, warm HEENT: Alopecia, [place] palpebral conjunctivae, no ptosis, dry buccal mucosa, BiPAP in place NECK : Supple, no tenderness CHEST : Decreased breath sounds, no tenderness HEART : RRR, no obvious murmurs ABDOMEN: Some distention, nontender EXTREMITIES : Minimal LE swelling, no LE tenderness, no other conspicuous deformities noted NEUROLOGIC : Coherent, no facial asymmetry, no other gross focality Results & Data Results & Data ([facility]) Vital Signs (Past 12 Hours) Vital Signs Temp Pulse Pulse Resp BP BP Pulse Ox 04/16/21 22:15 65 21 100/46 L 95 04/16/21 22:00 66 20 88/43 L 94 04/16/21 21:45 67 22 88/48 L 94 04/16/21 21:30 71 21 101/43 L 95 04/16/21 21:15 70 21 107/53 L 94 04/16/21 21:00 73 23 105/56 L 94 04/16/21 20:56 75 20 94 04/16/21 20:46 75 22 125/86 95 04/16/21 20:30 72 27 H 97/56 L 95 04/16/21 20:15 75 19 126/76 95 04/16/21 20:02 84 25 H 96 04/16/21 19:45 81 18 143/60 H 95 04/16/21 19:30 85 19 92 04/16/21 19:15 95 H 27 H 87 L 04/16/21 19:06 86 20 85 L 04/16/21 18:50 85 21 92 04/16/21 18:35 86 30 H 157/73 H 80 L 04/16/21 18:34 37.6 C H 30 H 152/71 H 70 L 04/16/21 18:30 88 32 H 152/71 H 82 L Laboratory Results Laboratory Results WBC 7.06 K/uL (4.8-10.8) 04/16/21 18:40 RBC 5.35 M/uL (4.7-6.1) 04/16/21 18:40 Hgb 15.5 g/dL (14.0-18.0) 04/16/21 18:40 Hct 46.1 % (42-52) 04/16/21 18:40 MCV 86.2 fL (80-100) 04/16/21 18:40 MCH 29.0 pg (25-34) 04/16/21 18:40 MCHC 33.6 g/dL (32-36) 04/16/21 18:40 RDW Std Deviation 42.8 fL (36.4-46.3) 04/16/21 18:40 RDW Coeff of Kalani 13.5 % (11.5-14.5) 04/16/21 18:40 Plt Count 280 K/uL (130-400) 04/16/21 18:40 MPV 9.6 fL (7.4-10.4) 04/16/21 18:40 Immature Gran % (Auto) 1.0 % 04/16/21 18:40 Neut % (Auto) 79.6 % 04/16/21 18:40 Lymph % (Auto) 9.5 % 04/16/21 18:40 Phillips % (Auto) 9.6 % 04/16/21 18:40 Eos % (Auto) 0.0 % 04/16/21 18:40 Baso % (Auto) 0.3 % 04/16/21 18:40 Neut # (Auto) 5.62 K/uL (1.4-6.5) 04/16/21 18:40 Lymph # (Auto) 0.67 K/uL (1.2-3.4) L 04/16/21 18:40 Phillips # (Auto) 0.68 K/uL (0.11-0.59) H 04/16/21 18:40 Eos # (Auto) 0.00 K/uL (0-0.5) 04/16/21 18:40 Baso # (Auto) 0.02 K/uL (0-0.2) 04/16/21 18:40 Immature Gran # (Auto) 0.07 K/uL (0.00-0.02) H 04/16/21 18:40 Sodium 135 mmol/L (136-145) L 04/16/21 18:40 Potassium 4.2 mmol/L (3.5-5.1) 04/16/21 18:40 Chloride 102 mmol/L (98-107) 04/16/21 18:40 Carbon Dioxide 26 mmol/L (21-32) 04/16/21 18:40 Anion Gap 7.0 (3-11) 04/16/21 18:40 BUN 30 mg/dl (7-18) H 04/16/21 18:40 Creatinine 1.62 mg/dl (0.6-1.4) H 04/16/21 18:40 Est Cr Clr Drug Dosing 58.3 ml/min 04/16/21 18:40 Est GFR ( Amer) 52.7 ml/min 04/16/21 18:40 Est GFR (Non-Af Amer) 45.5 ml/min 04/16/21 18:40 BUN/Creatinine Ratio 18.8 (10-20) 04/16/21 18:40 Glucose 128 mg/dl (70-99) H 04/16/21 18:40 Calcium 8.8 mg/dl (8.5-10.1) 04/16/21 18:40 Magnesium 2.7 mg/dl (1.8-2.4) H 04/16/21 18:40 Total Bilirubin 0.8 mg/dl (0.2-1) 04/16/21 18:40 AST 99 U/L (15-37) H 04/16/21 18:40 ALT 92 U/L (12-78) H 04/16/21 18:40 Alkaline Phosphatase 134 U/L (45-117) H 04/16/21 18:40 Troponin I 0.139 ng/ml (0-0.045) H* 04/16/21 18:40 C-Reactive Protein 8.50 mg/dl (0-0.29) H 04/16/21 18:40 NT-Pro-B Natriuret Pep 2529 pg/ml (0-900) H 04/16/21 18:40 Total Protein 7.7 gm/dl (6.4-8.2) 04/16/21 18:40 Albumin 2.8 gm/dl (3.4-5.0) L 04/16/21 18:40 Globulin 4.9 gm/dl (2.5-4.0) H 04/16/21 18:40 Albumin/Globulin Ratio 0.6 (0.9-2) L 04/16/21 18:40 Lipase 403 U/L (73-393) H 04/16/21 18:40 COVID-19 Eval Order Covid19 at [facility] 04/16/21 18:45 SARS-CoV-2 (PCR) POSITIVE (Negative) A* 04/16/21 18:45 Impressions Chest X-Ray 04/16/21 18:29 XR chest 1V portable CLINICAL HISTORY: sob COMPARISON STUDY: October [id number] FINDINGS: No pneumothorax. No pleural effusion. Patchy airspace opacities are seen bilaterally, predominantly within lower lung region. Cardiomediastinal silhouette is enlarged. Pulmonary vasculature is obscured.. Osseous structures: unremarkable IMPRESSION: 1. Cardiomegaly with patchy airspace opacities which seen bilaterally, could represent pneumonia or/and pulmonary edema. ACT 112: Negative or not required by law. The above report was generated using voice recognition software. It may contain grammatical, syntax or spelling errors. Electronically signed by: Hayde Betancourt DO 04/16/2021 7:42 PM Diagnostic Findings EKG as per my interpretation rate 85, NSR, LAD, LAFB, LVH, T wave inversion lateral leads
[2021-04-16 22:40] LABS: Allen Test Pos (Pos)
[2021-04-16] MEDS ORDERED: REMDESIVIR 200 MG in SODIUM CHLORIDE 0.9% 210 ML IV STA (22:45)
[2021-04-16] MEDS ORDERED: traMADol HCL 50 MG TABLET PO PRN (23:49)
[2021-04-16] MEDS ORDERED: SODIUM CHLORIDE 0.9% 10ML FLUSH IV SCH (23:49)
[2021-04-16] MEDS ORDERED: ACETAMINOPHEN 325 MG TAB PO PRN (23:49)
[2021-04-17 00:24] LABS: Thyroid Stimulating Hormone 1.33 uIu/ml (0.300-4.500); Troponin I 0.131 ng/ml (0-0.045)
[2021-04-17] MEDS: ALBUMIN 25% 12.5 GM/50 ML VIAL IV SCH ×4 (00:30→08:18)
[2021-04-17] MEDS: guaiFENesin 600 MG TABCR PO SCH ×3 (02:06→20:11)
[2021-04-17] MEDS: HEPARIN SOD 5,000 UNIT/0.5 ML VIAL SQ SCH ×3 (06:01→20:12)
[2021-04-17] MEDS ORDERED: ALBUTEROL HFA 8 GM INHALER INH SCH (07:00)
[2021-04-17 07:49] LABS: Basophils # (auto) 0.03 K/uL (0-0.2); Basophils % (auto) 0.5 %; Hematocrit (blood only) 41.4 % (42-52); Hemoglobin 13.7 g/dL (14.0-18.0); Immature Granulocytes # (auto) 0.05 K/uL (0.00-0.02); Immature Granulocytes % (auto) 0.8 %; Lymphocytes # (auto) 0.51 K/uL (1.2-3.4); Lymphocytes % (auto) 8.2 %; Mean Corpuscular Hemoglobin 28.5 pg (25-34); Mean Corpuscular Hgb Conc 33.1 g/dL (32-36); Mean Corpuscular Volume 86.3 fL (80-100); Mean Platelet Volume 9.5 fL (7.4-10.4); Monocytes # (auto) 0.62 K/uL (0.11-0.59); Monocytes % (auto) 9.9 %; Neutrophils # (auto) 5.03 K/uL (1.4-6.5); Neutrophils % (auto) 80.6 %; Platelet Count 252 K/uL (130-400); RDW Coefficient of Variation 13.5 % (11.5-14.5); RDW Standard Deviation 42.9 fL (36.4-46.3); White Blood Count 6.24 K/uL (4.8-10.8)
[2021-04-17 08:14] LABS: BUN Creatinine Ratio 21.6 (10-20); Calcium 8.7 mg/dl (8.5-10.1); Creatinine Clr Calc Pharmacy 57.2 ml/min; Est GFR (African American) 58.3 ml/min; Est GFR (Non-African American) 50.3 ml/min; Potassium 4.3 mmol/L (3.5-5.1)
[2021-04-17 08:17] LABS: Albumin Globulin Ratio 0.7 (0.9-2); Bilirubin,Total 0.7 mg/dl (0.2-1); Globulin 4.2 gm/dl (2.5-4.0); Total Protein 7.2 gm/dl (6.4-8.2)
[2021-04-17] MEDS ORDERED: ALBUTEROL HFA 8 GM INHALER INH PRN (08:20)
[2021-04-17] MEDS ORDERED: dexAMETHasone 6 MG in SYRINGE 0 ML IV SCH (09:00)
--- NOTE | 2021-04-17 12:56 | Hospitalist Progress Note ---
Date of Service April 17, 2021 Assessment & Plan (1) Acute hypoxemic respiratory failure: Plan: COVID-19 pneumonia Failed outpatient treatment History of hypertension ARF on CRI secondary to illness Abnormal LFTs without abdominal pain complaints History of schwannoma schwannoma status post surgery Currently patient remains on the BiPAP. He reports he feels better than he came in with. Continue remdesivir/Decadron. He is afebrile. Hemodynamically doing okay. Renal function is improved. Albuterol as needed on board. Restart antihypertensive today. : Ms. Ya Cedillo, contact #[phone]. Text document was generated using Sonalight voice recognition software. It may contain grammatical or spelling errors. Kindly contact undersigned for clarification of any documentation item in question. Admission and Anticipated Discharge Date Admission Date: April 16, 2021 Subjective Patient is currently on the BiPAP. He reports his breathing is better. He does have minimal productive cough. He denies any chest pain, palpitations or any dizziness. Reports appetite is okay. Rest of the review of system is negative. Review of Systems Review of Systems: All systems reviewed & are unremarkable except as noted in HPI & below Physical Exam Physical Exam: General: A&Ox3, remains on the BiPAP HENT: NCAT, MMM, EOMI Eyes: PERRLA Neck: Supple, normal range of motion CVS: normal rate and rhythm Resp: b/l coarse breath sounds Abdomen: Soft, ND/NT, +BS Extremities: No c/c/e Neuro: face symmetric, no focal deficit Skin: warm and dry, no rashes/lesions/errythema MSK: normal ROM, no joint swelling/erythema Results & Data Results & Data ([facility]) Vital Signs (Past 12 Hours) Vital Signs Temp Pulse Pulse Resp BP Pulse Ox 04/17/21 12:14 36.3 C L 79 21 161/72 H 93 04/17/21 11:07 79 19 92 04/17/21 07:50 36.5 C 78 22 152/75 H 92 04/17/21 07:13 76 21 91 04/17/21 04:00 18 93 04/17/21 03:12 36.6 C 69 21 145/67 H 92 04/17/21 02:14 93
--- NOTE | 2021-04-17 16:20 | Electrocardiogram Report ---
Test Reason : Blood Pressure : / mmHG Vent. Rate : 084 BPM Atrial Rate : 084 BPM P-R Int : 122 ms QRS Dur : 100 ms QT Int : 362 ms P-R-T Axes : 038 -08 149 degrees QTc Int : 427 ms Poor data quality, interpretation may be adversely affected Normal sinus rhythm Left ventricular hypertrophy with repolarization abnormality Abnormal ECG When compared with ECG of 26-AUG-2019 14:14, T wave inversion no longer evident in Inferior leads Confirmed by Yang Gil ([id number]) on 04/17/2021 4:20:17 PM Referred By: REFERRED SELF Confirmed By:Yang Gil
[2021-04-17 17:34] LABS: Appearance Urine Clear (Clear); Bacteria Urine Automated Negative (Negative); Bilirubin Urine Negative (Negative); Blood Urine Negative (Negative); Color Urine Dark Yellow; Glucose Urine UA Negative (Negative); Ketones Urine Negative (Negative); Leukocyte Esterase Urine Negative (Negative); Nitrite Urine Negative (Negative); Protein Urine 2+ (Negative); RBC Urine Automated 0-4 /hpf (0-4); Specific Gravity Urine 1.027 (1.000-1.030); Urobilinogen Urine Negative (Negative)
[2021-04-17] MEDS: carvediloL 6.25 MG TAB PO SCH (20:11)
[2021-04-17] MEDS ORDERED: REMDESIVIR 100 MG in SODIUM CHLORIDE 0.9% 230 ML IV ONE (22:00)
[2021-04-17] MEDS: SODIUM CHLORIDE 0.9% 10ML FLUSH IV SCH (23:23)
[2021-04-18] MEDS ORDERED: ALBUTEROL HFA 8 GM INHALER INH ONE (04:31)
[2021-04-18] MEDS ORDERED: ALBUT/IPRATROP 3MG/0.5MG NEB 3 ML VIAL NEB STA (04:44)
[2021-04-18 05:01] LABS: Basophils # (auto) 0.02 K/uL (0-0.2); Basophils % (auto) 0.2 %; Hematocrit (blood only) 42.1 % (42-52); Hemoglobin 14.4 g/dL (14.0-18.0); Immature Granulocytes # (auto) 0.05 K/uL (0.00-0.02); Immature Granulocytes % (auto) 0.5 %; Lymphocytes # (auto) 0.51 K/uL (1.2-3.4); Mean Corpuscular Hemoglobin 29.2 pg (25-34); Mean Corpuscular Hgb Conc 34.2 g/dL (32-36); Mean Corpuscular Volume 85.4 fL (80-100); Mean Platelet Volume 9.3 fL (7.4-10.4); Monocytes # (auto) 0.88 K/uL (0.11-0.59); Monocytes % (auto) 8.5 %; Neutrophils # (auto) 8.84 K/uL (1.4-6.5); Neutrophils % (auto) 85.8 %; Platelet Count 288 K/uL (130-400); RDW Coefficient of Variation 13.5 % (11.5-14.5); RDW Standard Deviation 41.9 fL (36.4-46.3); Red Blood Count 4.93 M/uL (4.7-6.1)
[2021-04-18 05:05] LABS: Base Excess ABG 1.9 mEq/L (-9-1.8); HCO3 ABG 25 mmol/L (19-24); Oxygen Saturation ABG 98.3 % (90-95); PCO2 ABG 37 mmHg (35-46); PO2 ABG 112 mmHg (80-95); pH ABG 7.46 (7.35-7.45)
[2021-04-18 05:06] LABS: Allen Test Pos (Pos)
[2021-04-18 05:22] LABS: Albumin Level 2.8 gm/dl (3.4-5.0); BUN Creatinine Ratio 25.3 (10-20); Calcium 8.5 mg/dl (8.5-10.1); Creatinine Clr Calc Pharmacy 66.1 ml/min; Est GFR (African American) 69.4 ml/min; Est GFR (Non-African American) 59.9 ml/min; Magnesium 2.6 mg/dl (1.8-2.4); Potassium 4.2 mmol/L (3.5-5.1)
[2021-04-18 05:25] LABS: Albumin Globulin Ratio 0.7 (0.9-2); Bilirubin,Total 0.6 mg/dl (0.2-1); Globulin 4.2 gm/dl (2.5-4.0)
[2021-04-18] MEDS: dexAMETHasone 6 MG in SYRINGE 0 ML IV SCH (05:38)
[2021-04-18] MEDS: HEPARIN SOD 5,000 UNIT/0.5 ML VIAL SQ SCH ×2 (05:38→14:03)
[2021-04-18] MEDS ORDERED: FUROSEMIDE 40 MG in SYRINGE 0 ML IV ONE (05:45)
[2021-04-18] MEDS: carvediloL 6.25 MG TAB PO SCH ×2 (07:48→22:08)
[2021-04-18] MEDS: guaiFENesin 600 MG TABCR PO SCH ×2 (07:48→20:51)
--- NOTE | 2021-04-18 09:21 | XRay Report ---
XR chest 1V portable INDICATION: MN ^low o2 . TECHNIQUE: Single frontal radiograph of the chest was obtained. Comparison: Comparison is made to chest one view 04/16/2021 FINDINGS: No lines and tubes are seen. The cardiomediastinal silhouette is normal. Pulmonary congestion is note d. There are airspace opacities in the bilateral lower lungs. Lungs are underinflated. No evidence of pleural effusion or pneumothorax. IMPRESSION: 1. Pulmonary edema, increased from prior exam. 2. Stable patchy airspace disease which may represent atelectasis, pneumonia, and/or aspiration. ACT 112: Negative or not required by law. Electronically signed by: Kal Israel M.D. 04/18/2021 9:20 AM
--- NOTE | 2021-04-18 12:48 | Hospitalist Progress Note ---
Date of Service April 18, 2021 Assessment & Plan (1) Acute hypoxemic respiratory failure: Plan: also sick with Covid, patient failed outpatient prednisone course. Continue with plan per below (2) Pneumonia due to COVID-19 virus: Plan: He continues on dexamethasone and remdesivir daily. He received 40 mg of Lasix this morning with approximately 1 L output today. Persistent crackles thr oughout lung almeida. BiPAP dependent. Will dose with an additional 20 mg of Lasix now IV. Patient is in agreement with this. Continue supportive care. (3) Acute renal failure: Plan: Resolved to baseline. (4) Elevated troponin: Plan: Likely demand ischemia, patient denies any chest pain and there was no escalation of troponin on trend overnight. Echocardiogram deferred secondary to Covid positive status (5) HTN (hypertension): (6) Transaminitis: Plan: Mild transaminitis, will not prohibit him from receiving remdesivir. We will continue to monitor. This is likely secondary to Covid illness. (7) DVT prophylaxis: Plan: Heparin switch to Lovenox to reduce shock burden DNR/DNI confirmed with patient and Disposition-continue PCU, patient needing to be back on BiPAP this evening. Continue to prone, patient's was updated by phone. Agrees with with plan Eneida Gutierrez DO [facility] Hospitalist Admission and Anticipated Discharge Date Admission Date: April 16, 2021 Subjective 60-year-old man presents with acute respiratory failure secondary to Covid pneumonia He reports doing well with no shortness of breath and is transitioning from BiPAP to high flow intermittently. He was on high flow at max therapy yesterday and required BiPAP overnight. He has been on BiPAP therapy all day today. Initially he was reluctant to come off and transition back to high flow out of c oncern he would desaturate. He is a confirmed DNR/DNI and understands that he could go into cardiac arrest without appropriate oxygen therapies. He understands that he is on the borderline of needing to be ventilated from a breathing machine. He confirms this is not something he wants. He is compliant with proning and is hungry. Review of systems is otherwise negative. Review of Systems Review of Systems: All systems were reviewed and negative except as indicated in HPI above. Physical Exam Physical Exam: CONSTITUTIONAL: WNWD, vitals as above, generally NAD, BIPAP in place EYES: normal conjunctivae, no scleral icterus ENT: external ear and nose normal, MMM NECK: trachea midline RESPIRATORY: Crackles throughout all lung almeida, no rales or wheezes, normal respiratory effort CARDIOVASCULAR: regular rate and rhythm, S1 and 2 heard without murmurs, gallops or rubs, no JVD, no peripheral edema GASTROINTESTINAL: soft, nontender, nondistended, no guarding MUSCULOSKELETAL: strength 5/5 throughout, head is normocephalic and atraumatic SKIN: warm and dry NEUROLOGIC: no sensory deficit, normal cognition, normal speech, no tremor, no gross focal deficits. 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 PSYCHIATRIC: alert cooperative and oriented to person, place and time. Results & Data Results & Data ([facility]) Vital Signs (Past 12 Hours) Vital Signs Temp Pulse Pulse Resp BP Pulse Ox Pulse Ox 04/18/21 12:26 36.5 C 72 16 146/77 H 92 04/18/21 10:53 69 20 91 04/18/21 08:00 77 23 89 L 04/18/21 07:37 37.0 C 82 18 106/60 91 04/18/21 07:27 75 04/18/21 07:00 36.7 C 73 22 129/68 88 L 04/18/21 05:50 90 04/18/21 05:04 81 23 95 04/18/21 03:25 76 24 90 04/18/21 03:16 36.7 C 78 22 170/77 H 85 L Laboratory Results Short CBC 04/18/21 Range/Units 04:53 WBC 10.30 (4.8-10.8) K/uL Hgb 14.4 (14.0-18.0) g/dL Hct 42.1 (42-52) % Plt Count 288 (130-400) K/uL BMP 04/18/21 04:53 Sodium 139 Potassium 4.2 Chloride 110 H Carbon Dioxide 25 BUN 33 H Creatinine 1.29 Glucose 162 H Calcium 8.5 Liver Function 04/18/21 Range/Units 04:53 Total Bilirubin 0.6 (0.2-1) mg/dl AST 67 H (15-37) U/L ALT 76 (12-78) U/L Alkaline Phosphatase 101 (45-117) U/L Albumin 2.8 L (3.4-5.0) gm/dl Urine 04/17/21 Range/Units 17:03 Urine Color Dark Yellow Urine Appearance Clear (Clear) Urine pH 5.0 (4.5-7.5) Ur Specific [place] 1.027 (1.000-1.030) Urine Protein 2+ H (Negative) Urine Glucose (UA) Negative (Negative) Medications Administered Current Inpatient Medications Acetaminophen (Acetaminophen 325 Mg Tab) 325 mg PO Q6H PRN PRN Reason: Mild Pain Stop: 05/16/21 23:48 Albuterol (Albuterol Hfa 8 Gm Inhaler) 2 puffs INH QIDR PRN PRN Reason: Shortness Of Breath Or Wheezin Stop: 05/17/21 06:59 Carvedilol (Carvedilol 6.25 Mg Tab) 6.25 mg PO BID [facility] Stop: 05/17/21 20:59 Last Admin: 04/18/21 07:48 Dose: 6.25 mg Documented by: Guaifenesin (Guaifenesin 600 Mg Tabcr) 600 mg PO BID@0800,2000 [facility] Stop: 05/17/21 00:00 Last Admin: 04/18/21 07:48 Dose: 600 mg Documented by: Heparin Sodium (Porcine) (Heparin Sod 5,000 Unit/0.5 Ml Vial) 5,000 units SQ Q8 [facility] Stop: 05/17/21 05:59 Last Admin: 04/18/21 05:38 Dose: 5,000 units Documented by: Remdesivir 100 mg/ Sodium (Chloride) 250 mls @ 250 mls/hr IV Q24H [facility]; Protocol Stop: 04/20/21 22:59 Dexamethasone 6 mg/ Syringe 1.5 mls @ 1 mls/min IV Q24H [facility] Stop: 05/18/21 04:59 Last Admin: 04/18/21 05:38 Dose: 1 mls/min Documented by: Sodium Chloride (Sodium Chloride 0.9% 10ml Flush) 30 ml IV Q24H [facility] Stop: 04/20/21 22:01 Last Admin: 04/17/21 23:23 Dose: 30 ml Documented by: Tramadol HCl (Tramadol Hcl 50 Mg Tablet) 25 mg PO Q4H PRN PRN Reason: Pain Stop: 05/16/21 23:48
[2021-04-18] MEDS ORDERED: FUROSEMIDE 20 MG in SYRINGE 0 ML IV ONE (19:15)
[2021-04-18] MEDS: REMDESIVIR 100 MG in SODIUM CHLORIDE 0.9% 230 ML IV SCH (20:46)
[2021-04-18] MEDS: ASCORBIC ACID 500 MG TAB PO SCH (20:53)
[2021-04-18] MEDS: SODIUM CHLORIDE 0.9% 10ML FLUSH IV SCH (22:09)
[2021-04-19] MEDS: dexAMETHasone 6 MG in SYRINGE 0 ML IV SCH (04:46)
[2021-04-19 07:36] LABS: Albumin Level 2.9 gm/dl (3.4-5.0); BUN Creatinine Ratio 27.1 (10-20); C Reactive Protein 1.7 mg/dl (0-0.29); Calcium 8.9 mg/dl (8.5-10.1); Creatinine Clr Calc Pharmacy 58.2 ml/min; Est GFR (African American) 60.2 ml/min; Magnesium 2.6 mg/dl (1.8-2.4); Potassium 4.2 mmol/L (3.5-5.1)
[2021-04-19 07:39] LABS: Albumin Globulin Ratio 0.7 (0.9-2); Bilirubin,Total 0.7 mg/dl (0.2-1); Globulin 4.3 gm/dl (2.5-4.0); Phosphorus 3.9 mg/dl (2.5-4.9); Total Protein 7.2 gm/dl (6.4-8.2)
[2021-04-19] MEDS: ZINC SULFATE 220 MG CAPSULE PO SCH (08:23)
[2021-04-19] MEDS: ASCORBIC ACID 500 MG TAB PO SCH ×2 (08:23→21:32)
[2021-04-19] MEDS: CHOLECALCIFEROL 1,000 UNITS 25 MCG TAB PO SCH (08:23)
[2021-04-19] MEDS: guaiFENesin 600 MG TABCR PO SCH ×2 (08:23→21:32)
[2021-04-19] MEDS: FUROSEMIDE 40 MG in SYRINGE 0 ML IV SCH (08:24)
[2021-04-19] MEDS: ENOXAPARIN INJ 40 MG/0.4 ML SYR SQ SCH (08:24)
[2021-04-19] MEDS: carvediloL 6.25 MG TAB PO SCH ×2 (08:24→21:32)
--- NOTE | 2021-04-19 17:57 | Hospitalist Progress Note ---
Date of Service April 19, 2021 Assessment & Plan (1) Acute hypoxemic respiratory failure: Plan: also sick with Covid, patient failed outpatient prednisone course. Continue with plan per below (2) Pneumonia due to COVID-19 virus: Plan: He continues on dexamethasone (Day4) and remdesivir daily. He received 40 mg of Lasix this morning with approximately 1 L output today again. Persistent crackles throughout lung almeida. BiPAP dependent with some increased discomfort from the mask. Continue supportive care and switching to hi flow when able. PRONE AT ALL TIMES EXCEPT WHEN EATING WHEN PT ON HI FLOW. (3) Acute renal failure: Plan: Creat trending up with more aggressive Lasix use. Cont to monitor daily BMP. Will accept a slightly decreased kidney function if it helps him breathe better. (4) Elevated troponin: Plan: Likely demand ischemia, ACS less likely, patient denies any chest pain and there was no escalation of serial trop trend. Echocardiogram deferred secondary to Covid positive status (5) HTN (hypertension): Plan: at goal, cont coreg and lasix therapy (6) Transaminitis: Plan: Mild transaminitis, will not prohibit him from receiving remdesivir. We will continue to monitor. This is likely secondary to Covid illness. (7) DVT prophylaxis: Plan: Lovenox DNR/DNI confirmed with patient and Disposition-continue PCU, Eneida Gutierrez DO [facility] Hospitalist Admission and Anticipated Discharge Date Admission Date: April 16, 2021 Subjective 60-year-old man presents with acute respiratory failure secondary to Covid pneumonia He reports doing well with no shortness of breath and is transitioning from BiPAP to high flow intermittently. denies pain tolerating some PO having dry mouth Review of Systems Review of Systems: All systems were reviewed and negative except as indicated in HPI above. Physical Exam Physical Exam: CONSTITUTIONAL: WNWD, vitals as above, ill-appearing, BIPAP in place EYES: normal conjunctivae, no scleral icterus ENT: external ear and nose normal, MMM NECK: trachea midline RESPIRATORY: Crackles throughout all lung almeida, no rales or wheezes, normal respiratory effort CARDIOVASCULAR: regular rate and rhythm, S1 and 2 heard without murmurs, gallops or rubs, no JVD, no peripheral edema GASTROINTESTINAL: soft, nontender, nondistended, no guarding MUSCULOSKELETAL: strength 5/5 throughout, head is normocephalic and atraumatic SKIN: warm and dry NEUROLOGIC: no sensory deficit, normal cognition, normal speech, no tremor, no gross focal deficits. 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 PSYCHIATRIC: alert cooperative and oriented to person, place and time. Results & Data Results & Data ([facility]) Vital Signs (Past 12 Hours) Vital Signs Temp Pulse Pulse Resp BP Pulse Ox 04/19/21 17:38 78 20 89 L 04/19/21 15:57 36.4 C L 78 19 139/73 91 04/19/21 14:36 76 22 94 04/19/21 13:07 79 21 93 04/19/21 11:17 36.5 C 75 20 136/63 87 L 04/19/21 10:05 84 24 90 04/19/21 08:20 36.8 C 75 20 159/67 H 94 04/19/21 08:18 85 22 89 L 04/19/21 08:00 75 Laboratory Results [facility] 04/19/21 06:22 Sodium 139 Potassium 4.2 Chloride 104 Carbon Dioxide 27 BUN 39 H Creatinine 1.45 H Glucose 127 H Calcium 8.9 Liver Function 04/19/21 Range/Units 06:22 Total Bilirubin 0.7 (0.2-1) mg/dl AST 63 H (15-37) U/L ALT 74 (12-78) U/L Alkaline Phosphatase 105 (45-117) U/L Albumin 2.9 L (3.4-5.0) gm/dl Medications Administered Current Inpatient Medications Acetaminophen (Acetaminophen 325 Mg Tab) 325 mg PO Q6H PRN PRN Reason: Mild Pain Stop: 05/16/21 23:48 Albuterol (Albuterol Hfa 8 Gm Inhaler) 2 puffs INH QIDR PRN PRN Reason: Shortness Of Breath Or Wheezin Stop: 05/17/21 06:59 Ascorbic Acid (Ascorbic Acid 500 Mg Tab) 500 mg PO BID [facility] Stop: 05/18/21 20:59 Last Admin: 04/19/21 08:23 Dose: 500 mg Documented by: Carvedilol (Carvedilol 6.25 Mg Tab) 6.25 mg PO BID [facility] Stop: 05/17/21 20:59 Last Admin: 04/19/21 08:24 Dose: 6.25 mg Documented by: Enoxaparin Sodium (Enoxaparin Inj 40 Mg/0.4 Ml Syr) 40 mg SQ QAM [facility] Stop: 05/19/21 08:59 Last Admin: 04/19/21 08:24 Dose: 40 mg Documented by: Guaifenesin (Guaifenesin 600 Mg Tabcr) 600 mg PO BID@0800,2000 [facility] Stop: 05/17/21 00:00 Last Admin: 04/19/21 08:23 Dose: 600 mg Documented by: Remdesivir 100 mg/ Sodium (Chloride) 250 mls @ 250 mls/hr IV Q24H [facility]; Protocol Stop: 04/20/21 22:59 Last Infusion: 04/18/21 21:46 Dose: Infused Documented by: Dexamethasone 6 mg/ Syringe 1.5 mls @ 1 mls/min IV Q24H [facility] Stop: 05/18/21 04:59 Last Admin: 04/19/21 04:46 Dose: 1 mls/min Documented by: Furosemide 40 mg/ Syringe 4 mls @ 4 mls/min IV DAILY [facility] Stop: 05/19/21 08:59 Last Admin: 04/19/21 08:24 Dose: 4 mls/min Documented by: Sodium Chloride (Sodium Chloride 0.9% 10ml Flush) 30 ml IV Q24H [facility] Stop: 04/20/21 22:01 Last Admin: 04/18/21 22:09 Dose: 30 ml Documented by: Tramadol HCl (Tramadol Hcl 50 Mg Tablet) 25 mg PO Q4H PRN PRN Reason: Pain Stop: 05/16/21 23:48 Vitamin D (Cholecalciferol 1,000 Units 25 Mcg Tab) [facility] Stop: 05/19/21 08:59 Last Admin: 04/19/21 08:23 Dose: 1,000 units Documented by: Zinc Sulfate (Zinc Sulfate 220 Mg Capsule) 220 mg PO QAM [facility] Stop: 05/19/21 08:59 Last Admin: 04/19/21 08:23 Dose: 220 mg Documented by:
[2021-04-19] MEDS: REMDESIVIR 100 MG in SODIUM CHLORIDE 0.9% 230 ML IV SCH (21:32)
[2021-04-20] MEDS: SODIUM CHLORIDE 0.9% 10ML FLUSH IV SCH ×2 (02:17→22:16)
[2021-04-20] MEDS: dexAMETHasone 6 MG in SYRINGE 0 ML IV SCH (04:21)
[2021-04-20 06:57] LABS: BUN Creatinine Ratio 29.2 (10-20); Calcium 9.1 mg/dl (8.5-10.1); Creatinine Clr Calc Pharmacy 64.5 ml/min; Est GFR (African American) 68.1 ml/min; Est GFR (Non-African American) 58.8 ml/min; Magnesium 2.5 mg/dl (1.8-2.4); Potassium 4.4 mmol/L (3.5-5.1)
[2021-04-20 06:59] LABS: Phosphorus 2.6 mg/dl (2.5-4.9)
[2021-04-20] MEDS: FUROSEMIDE 40 MG in SYRINGE 0 ML IV SCH (09:43)
[2021-04-20] MEDS: ENOXAPARIN INJ 40 MG/0.4 ML SYR SQ SCH (09:43)
[2021-04-20] MEDS: ASCORBIC ACID 500 MG TAB PO SCH ×2 (09:43→20:18)
[2021-04-20] MEDS: guaiFENesin 600 MG TABCR PO SCH ×2 (09:43→20:18)
[2021-04-20] MEDS: carvediloL 6.25 MG TAB PO SCH ×2 (09:44→20:18)
[2021-04-20] MEDS: CHOLECALCIFEROL 1,000 UNITS 25 MCG TAB PO SCH (09:44)
[2021-04-20] MEDS: ZINC SULFATE 220 MG CAPSULE PO SCH (09:44)
[2021-04-20] MEDS ORDERED: ALPRAZolam 0.5 MG TABLET PO STA (12:50)
--- NOTE | 2021-04-20 14:14 | Hospitalist Progress Note ---
Date of Service April 20, 2021 Assessment & Plan (1) Acute hypoxemic respiratory failure: Plan: also sick with Covid, patient failed outpatient prednisone course. Continue with plan per below (2) Pneumonia due to COVID-19 virus: Plan: He continues on dexamethasone (Day5) and remdesivir (Day 5). He is receiving daily Lasix with a net negative output of approximately 1 L. Crackles throu ghout lungs appear to be improving, CRP improving however patient is very agitated with situation and attempting to pull off his medical equipment. He confirms he is a DNR and so to his . For his discomfort nasal spray and throat spray have been ordered scheduled, we are using Biotene spray to help keep his mouth wet. He will receive 1 dose of Xanax to help take the edge off his agitation and his steroids are now on hold. Continue to prone as often as he can tolerate. He has been on high flow with oxygen saturations in the low 90s this morning. He will transition back to BiPAP now out of significant discomfort to his nose and other upper airways. (3) Acute renal failure: Plan: Around baseline, cont to monitor daily BMP While on daily Lasix therapy. Will accept a slightly decreased kidney function if it helps him breathe better. (4) Elevated troponin: Plan: Likely demand ischemia, ACS less likely, patient denies any chest pain and there was no escalation of serial trop trend. Echocardiogram deferred secondary to Covid positive status (5) HTN (hypertension): Plan: at goal, cont coreg and lasix therapy (6) Transaminitis: Plan: Mild transaminitis, will not prohibit him from receiving remdesivir. We will continue to monitor. This is likely secondary to Covid illness. (7) DVT prophylaxis: Plan: Lovenox DNR/DNI confirmed with patient and . I had a 10-minute conversation with his today regarding his change in mental outlook and his very guarded prognosis. I also discussed the situation with his niece per Ya's request for approximately 20 minutes. There is a question of possibly changing the CODE STATUS from his niece. Until I hear further direction from his or the patient he will remain a DO NOT RESUSCITATE DO NOT INTUBATE. Appreciate pulmonology input on this Disposition-continue PCU, Eneida Gutierrez DO [facility] Hospitalist Admission and Anticipated Discharge Date Admission Date: April 16, 2021 Subjective 60-year-old man presents with acute respiratory failure secondary to Covid pneumonia Mr. Prado is very agitated and upset at this point, 1300. He states he is going home and he is going to take off the high flow as it is causing his nose to be very dry. He reports burning in his throat and dryness in his nose. 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 He is alert and oriented to person place and situation. He again confirms to me for the third time this admission that he does not want to be intubated, how ever, he reports to me that he does not want to . I gave him the option of palliative care, which he does not want. I explained to him that if he takes off the equipment he will . He reports he just wants cold water and some help with his symptoms. We discussed treatments we are implementing immediately to help him with this. We also discussed giving him a little dose of Xanax to take the edge off. Steroids now placed on hold. I called the and reiterated everything to her. She is upset as her father has now been made comfort care from [facility] in the other wing. She is understandably upset about potentially losing both her father and her . She understands her may not make it through this and confirms to me that he is a DO NOT RESUSCITATE. She then asked me to contact her niece, who questioned me about an ABG and other details of his medical care. I fully explained the picture to her and she seemed to understand we are, and have been, on max therapies with BiPAP and high flow to help him oxygenate and ventilate. We have been doing different pulmonary toilet exercises and intermittent proning to assist with this. He has been on daily Lasix to assist with oxygenation and ventilation. He continues on steroids and remdesivir daily. His CRP is improved. The niece is going to talk to her and about switching his CODE STATUS. In this situation I am consulting pulmonology to assist with this and help with the family understanding pros and cons of intubation. After receiving the Xanax the patient is now able to calmly get on the bedpan and is keeping his breathing devices on. Review of Systems Review of Systems: ROS was limited 2/2 the extreme agitation the patient was experiencing. Physical Exam Physical Exam: CONSTITUTIONAL: WNWD, vitals as above, ill-appearing, hi flow in place EYES: normal conjunctivae, no scleral icterus ENT: external ear and nose normal, MMM NECK: trachea midline RESPIRATORY: Crackles throughout all lung almeida-improved, no rales or wheezes, normal respiratory effort CARDIOVASCULAR: regular rate and rhythm, S1 and 2 heard without murmurs, gallops or rubs, no JVD, no peripheral edema GASTROINTESTINAL: soft, nontender, nondistended, no guarding MUSCULOSKELETAL: strength 5/5 throughout, head is normocephalic and atraumatic SKIN: warm and dry NEUROLOGIC: no sensory deficit, normal cognition, normal speech, no tremor, no gross focal deficits. CN2-12 grossly intact. PSYCHIATRIC: alert cooperative and oriented to person, place and time. Results & Data Results & Data ([facility]) Vital Signs (Past 12 Hours) Vital Signs Temp Pulse Pulse Pulse Resp BP Pulse Ox 04/20/21 13:00 72 93 04/20/21 11:38 36.8 C 79 20 143/67 H 87 L 04/20/21 11:20 84 20 89 L 04/20/21 08:06 36.5 C 83 23 160/79 H 89 L 04/20/21 07:18 85 20 89 L 04/20/21 07:00 82 04/20/21 03:44 81 21 92 04/20/21 03:43 81 21 90 04/20/21 03:30 36.5 C 75 22 136/77 89 L Laboratory Results [facility] 04/20/21 05:59 Sodium 137 Potassium 4.4 Chloride 104 Carbon Dioxide 25 BUN 38 H Creatinine 1.31 Glucose 121 H Calcium 9.1 Medications Administered Current Inpatient Medications Acetaminophen (Acetaminophen 325 Mg Tab) 325 mg PO Q6H PRN PRN Reason: Mild Pain Stop: 05/16/21 23:48 Albuterol (Albuterol Hfa 8 Gm Inhaler) 2 puffs INH QIDR PRN PRN Reason: Shortness Of Breath Or Wheezin Stop: 05/17/21 06:59 Ascorbic Acid (Ascorbic Acid 500 Mg Tab) 500 mg PO BID LUIS FELIPE Stop: 05/18/21 20:59 Last Admin: 04/20/21 09:43 Dose: 500 mg Documented by: Carvedilol (Carvedilol 6.25 Mg Tab) 6.25 mg PO BID LUIS FELIPE Stop: 05/17/21 20:59 Last Admin: 04/20/21 09:44 Dose: 6.25 mg Documented by: Enoxaparin Sodium (Enoxaparin Inj 40 Mg/0.4 Ml Syr) 40 mg SQ QAM LUIS FELIPE Stop: 05/19/21 08:59 Last Admin: 04/20/21 09:43 Dose: 40 mg Documented by: Guaifenesin (Guaifenesin 600 Mg Tabcr) 600 mg PO BID@0800,2000 LUIS FELIPE Stop: 05/17/21 00:00 Last Admin: 04/20/21 09:43 Dose: 600 mg Documented by: Remdesivir 100 mg/ Sodium (Chloride) 250 mls @ 250 mls/hr IV Q24H LUIS FELIPE; Protocol Stop: 04/20/21 22:59 Last Infusion: 04/20/21 02:16 Dose: Infused Documented by: Dexamethasone 6 mg/ Syringe 1.5 mls @ 1 mls/min IV Q24H LUIS FELIPE Stop: 05/18/21 04:59 Last Admin: 04/20/21 04:21 Dose: 1 mls/min Documented by: Furosemide 40 mg/ Syringe 4 mls @ 4 mls/min IV DAILY LUIS FELIPE Stop: 05/19/21 08:59 Last Admin: 04/20/21 09:43 Dose: 4 mls/min Documented by: Phenol (Chloraseptic 1.4% Soln 180 Ml Btl) 2 sprays MT Q6H LUIS FELIPE Stop: 05/20/21 14:14 Sodium Chloride (Sodium Chloride 0.9% 10ml Flush) 30 ml IV Q24H LUIS FELIPE Stop: 04/20/21 22:01 Last Admin: 04/20/21 02:17 Dose: 30 ml Documented by: Sodium Chloride (Sodium Chloride 0.65% Na Soln 45 Ml ([place])) 2 sprays NA TID LUIS FELIPE Stop: 05/20/21 13:59 Tramadol HCl (Tramadol Hcl 50 Mg Tablet) 25 mg PO Q4H PRN PRN Reason: Pain Stop: 05/16/21 23:48 Vitamin D (Cholecalciferol 1,000 Units 25 Mcg Tab) 1,000 units PO QAM LUIS FELIPE Stop: 05/19/21 08:59 Last Admin: 04/20/21 09:44 Dose: 1,000 units Documented by: Zinc Sulfate (Zinc Sulfate 220 Mg Capsule) 220 mg PO [facility] Stop: 05/19/21 08:59 Last Admin: 04/20/21 09:44 Dose: 220 mg Documented by:
[2021-04-20] MEDS: CHLORASEPTIC 1.4% SOLN 180 ML BTL MT SCH ×4 (15:47→23:58)
[2021-04-20] MEDS: SODIUM CHLORIDE 0.65% NA SOLN 45 ML (OCEAN) SCH ×2 (15:47→20:17)
--- NOTE | 2021-04-20 15:57 | Critical Care Consultation ---
Date of Consultation April 20, 2021 Assessment & Plan (1) Pneumonia due to COVID-19 virus: (2) Acute hypoxemic respiratory failure: 60-year-old male with COVID-19 viral pneumonia. Currently in acute hypoxemic respiratory failure on BiPAP with settings of 18/12 and FiO2 100% saturating 90%. We will move the patient to the ICU and proceed with intubation and mechanical ventilation given his profound hypoxemia. Patient consents to intubation and mechanical ventilation. The hospitalist is going to call the and relay this over to the patient's . We will give an additional dose of 10 mg Decadron now. Continue 10 mg daily. Will give an additional dose of 40 mg IV Lasix. May require proning and neuromuscular blockade while on the ventilator. We will consider the use of inhaled epoprostenol. Patient is gravely ill and has high risk for decompensation in setting cardiac arrest. We will continue monitoring closely in the ICU. CRITICAL CARE TIME - I have personally spent 40 minutes of critical care time in the direct management of this patient. This is a life/limb threatening event. This includes time spent evaluating patient, direct bedside care, chart review, placing orders, interpretation of diagnostic studies, discussion with consultants, patient, and family members, as well as other required patient management activities. This time is exclusive of all separately billable procedures, and teaching time and separate from and in addition to any other critical care service time. History of Present Illness Reason for Consultation: COVID-19 viral pneumonia Attending Physician: Eneida Gutierrez DO History of Present Illness 60-year-old male with a past medical history of hypertension CKD who presented to the hospital on 04/16/2021 and was found to have Covid pneumonia. His is also sick with Covid. He is unvaccinated. He has had confusion today. He has had worsening shortness of breath. He is currently on BiPAP at settings of 18/12 and FiO2 100%. Earlier today he had an event where he removed his supplemental oxygen desaturated to the 50s. There has been questions regarding the patient's CODE STATUS. He relates to the hospitalist that he does not want to be intubated or resuscitated, but he also says that he wants to fr[place] ve. I asked him regarding intubation and he indicated to me that he is willing to consent to intubation if needed. He is currently profoundly hypoxemic. He denies cough and minimal chest pain. He has minimal cough. Chest x-ray 04/18/2021 reviewed with pulmonary edema and patchy airspace disease. Echo from 2019 reviewed with an LVEF of 55 to 60%. Grade 1 diastolic dysfunction. -1.71 L. Currently receiving remdesivir and Decadron. On 40 mg IV Lasix daily per the hospitalist team. Receiving Lovenox 40 mg q. a.m. Allergies Allergy/AdvReac Type Severity Reaction Status Date / Time aspirin AdvReac Mild NOSE BLEEDS Verified 04/16/21 19:23 Penicillins AdvReac Mild "MAKES ME Verified 04/16/21 19:23 SICK." Home Medications Medication Instructions Recorded Confirmed Type psmirmyi-iizkcasl-bqtap acid 400 1 tab PO QAM 03/23/19 04/16/21 History mcg-vit K 20 mcg-lycop 300 mcg tablet (Men's One Daily) carvedilol 6.25 mg tablet (Coreg) 6.25 mg PO BID 08/27/19 04/16/21 History prednisone 20 mg tablet See Rx Instructions .ROUTE .COMPLEX 04/16/21 04/16/21 History Patient History Medical History (Updated 04/20/21 @ 16:02 by Marshall Gurrola MD) Chronic kidney disease PATIENT DENIES Hydronephrosis of left kidney Hypertension Pneumonia due to COVID-19 virus Thyroid nodule JUST WATCHING Surgical History History of abdominal surgery H/O left renal surgery> [facility] > OVER 10 YRS AGO History of appendectomy History of cholecystectomy Hx of neck surgery C4,5 6> REMOVED MASS FROM [facility] > [facility] > APR 2019> DIFFICULTY TURNING HEAD TO LEFT SIDE Family History Father Cancer Social History Smoking Status: Never smoker Second Hand Exposure: No; Do You Dip or Chew Tobacco: No; Tobacco Cessation Education Requested by Patient: No Hx Alcohol Use: No Hx Substance Use: No Preferred Language: Tongan Communication Ability: Effective Benefits Assistant Required: No Beliefs That Will Affect Care: None marital status: Current Living Situation: Family Current Living Situation Comment: [id number] lives with patient also current occupational status: employed 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 BiPAP mask in place. Laying in bed. Eyes: Pupils are equal round and reactive to light. Conjunctivae are normal. Anicteric sclera. Ears nose, mouth and throat: Patient with BiPAP mask in place. No obvious deformities. Neck: Trachea is midline. Visual inspection is normal. Respiratory: Mildly increased use of accessory muscles. Diminished lung sounds bilaterally. Cardiovascular: Regular rate and rhythm. No murmurs. No edema. Gastrointestinal: Normal bowel sounds, soft, nontender and nondistended. No hepatosplenomegaly noted. Musculoskeletal: No cyanosis. Patient is able to move all extremities. Strength is 5 out of 5 in the upper and lower extremities. Skin: No rashes, warm dry and intact. Neurologic: No obvious focal neurological deficits seen. Psychiatric: Alert and oriented x3 with a euthymic affect. Results & Data Results & Data ([facility]) Vital Signs (Past 12 Hours) Vital Signs Temp Pulse Pulse Pulse Resp BP Pulse Ox 04/20/21 15:46 98.6 F 76 16 128/71 90 04/20/21 15:00 79 04/20/21 14:46 81 29 H 93 04/20/21 13:00 72 93 04/20/21 11:38 98.2 F 79 20 143/67 H 87 L 04/20/21 11:20 84 20 89 L 04/20/21 08:06 97.7 F 83 23 160/79 H 89 L 04/20/21 07:18 85 20 89 L 04/20/21 07:00 82 Labs without leukocytosis. Hemoglobin stable. ABG with respiratory alkalosis from 04/18/2021. Electrolytes and renal function stable. Coding Level of Care Code Critical Care 1st 30-74 mins Diagnoses Pneumonia due to COVID-19 virus U07.1; J12.82 Acute hypoxemic respiratory failure J96.01 Time Spent (min) 40
--- NOTE | 2021-04-20 16:21 | Electrocardiogram Report ---
Test Reason : Blood Pressure : / mmHG Vent. Rate : 081 BPM Atrial Rate : 081 BPM P-R Int : 118 ms QRS Dur : 100 ms QT Int : 382 ms P-R-T Axes : 050 -21 170 degrees QTc Int : 443 ms Normal sinus rhythm Left ventricular hypertrophy with repolarization abnormality Abnormal ECG When compared with ECG of 16-APR-2021 18:50, T wave inversion more evident in Lateral leads Confirmed by Yang Gil ([id number]) on 04/20/2021 4:20:50 PM Referred By: REFERRED SELF Confirmed By:Yang Gil
[2021-04-20] MEDS ORDERED: FUROSEMIDE 40 MG in SYRINGE 0 ML IV ONE (16:30)
[2021-04-20] MEDS ORDERED: ETOMIDATE 2 MG/ML 20 ML VIAL IV ONE ×2 (17:02→18:01)
[2021-04-20] MEDS ORDERED: PROPOFOL IV EMULSION 10 MG/ML 100 ML VIAL IV ONE (17:02)
[2021-04-20] MEDS ORDERED: ROCURONIUM BROMIDE 10 MG/ML 5 ML VIAL IV ONE ×2 (17:03→18:03)
[2021-04-20] MEDS: EPOPROSTENOL SODIUM (GLYCINE) 1.5 MG/5 ML INH PRN ×2 (17:42→22:56)
[2021-04-20] MEDS ORDERED: PROPOFOL BOLUS FROM BAG IV PRN (18:01)
[2021-04-20] MEDS ORDERED: STAT IV Infusion **Titration per Protocol STA ×4 (18:01→22:55)
--- NOTE | 2021-04-20 18:06 | Procedure Note ---
Procedure Note Date of Service April 20, 2021 Note INTUBATION PROCEDURE NOTE: Dr. Marshall Gurrola A time-out was completed verifying correct patient, procedure, site, positioning. Patient was evaluated and required intubation for hypoxemic respiratory failure. Sedative agent used: 25 mg etomidate Paralysis agent used: 50 mg rocuronium Emergent consent was implied given patients rapidly declining clinical status and need for airway protection. Number of attempts: 1 Grade view: The patient was prepared in the appropriate fashion. Sedation was achieved utilizing etomidate and fentanyl. The patient was easily ventilated using [id number] to achieve adequate oxygenation. A 7.5 Irish endotracheal tube was placed under video laryngoscope guidance to 24 cm at the lip. The stylette was removed and balloon was inflated with 10mL of air. Appropriate Colorimetric change was appreciated. Bilateral breath sounds were heard without air sounds in the abdomen. Post Intubation Chest X-ray ordered Coding CPT Codes Resuscitation - Resuscitation: 79859 Endotracheal Intubation, emergency ([id number]) [facility] Procedure Codes (Charges) Resuscitation Resuscitation: 40594 Endotracheal Intubation, emergency
--- NOTE | 2021-04-20 18:13 | Procedure Note ---
Procedure Note Date of Service April 20, 2021 Note INTERNAL JUGULAR CENTRAL LINE PROCEDURE NOTE: Procedure: Internal Jugular Central Line Placement Indication: Central Drug Administration, Poor Venous Access, Multiple Lab Draws Necessary, etc. Anesthesia: Continuous propofol fentanyl were infusing at the time of the procedure/8 mL lidocaine 1% Emergency consent was implied given the nature of the patient's condition. A time-out was completed verifying correct patient, procedure, site, positioning, and implants(s) or special equipment if applicable. Patients right neck was cleansed and draped in the typical sterile fashion using Chloraprep. The Internal Jugular Vein and Carotid Artery were identified using ultrasound. The superficial tissue was anesthetized using 8 mL of 1% lidocaine without epinephrine under direct visualization with the ultrasound. After adequate an esthetization was achieved, the Internal Jugular vein was cannulated under direct ultrasound guidance using an introducer needle on a syringe. Good venous blood return was maintained prior to removal of syringe from introducer needle. Using Seldinger Technique, a guide wire was advanced through the introducer needle without resistance. The introducer needle was removed and ultrasound images were obtained of the guide wire within the Internal Jugular Vein and saved to the patients medical record. A small incision was made in penetrating fashion at the guide wire insertion site utilizing an 11 blade scalpel. The dilator was advanced to the vessel without resistance. The dilator was exchanged for the triple lumen catheter which was advanced into the vessel without resistance. The guide wire was removed intact from the catheter without issue. Claves were placed on each catheter tip with confirmation of good blood flow from each lumen. Each port was easily flushed with sterile saline. The catheter was placed at 15 cm and sut[address] in place. BioPatch was applied to the catheter and a sterile Tegaderm dressing was applied over the catheter with careful attention to sterility. Patient tolerated procedure well. No immediate complications were met. Post procedure x-ray is pending. Images obtained are saved for permanent record Coding CPT Codes Tubes, Drains, and Vasc Access - Tubes, Drains, and Vasc Access: [id number] Place catheter in vein superior or inferior vena cava ([id number]) Tubes, Drains, and Vasc Access - Tubes, Drains, and Vasc Access: [id number] Ultrasound Guidance For Vascular ([id number]) [facility] Procedure Codes (Charges) Tubes, Drains, and Vasc Access Procedure 1: Tubes, Drains, and Vasc Access: [id number] Place catheter in vein superior or inferior vena cava Procedure 2: Tubes, Drains, and Vasc Access: [id number] Ultrasound Guidance For Vascular
[2021-04-20] MEDS: propofoL 1,000 MG/100 ML VIAL IV SCH ×2 (18:23→22:18)
[2021-04-20] MEDS: fentaNYL DRIP 1,250 MCG/250 ML BAG IV SCH (18:23)
[2021-04-20] MEDS: dexAMETHasone 10 MG in SYRINGE 0 ML IV SCH (18:27)
[2021-04-20] MEDS: ARTIFICIAL TEARS OP OINT 3.5 GM TUBE OP SCH ×2 (18:27→22:18)
--- NOTE | 2021-04-20 18:44 | XRay Report ---
XR chest 1V portable INDICATION: MN ^s/p intubation and RIJ. TECHNIQUE: Single frontal radiograph of the chest was obtained. Comparison: Comparison is made to chest one view 04/18/2021 FINDINGS: Interval placement of endotracheal tube terminating 43 mm from the kalin. A right internal jugular v enous catheter terminates in the mid SVC. Enteric tube terminates within the stomach. The cardiomedia stinal silhouette is normal. There is prominence and indistinctness of the vasculature. Patchy airspa ce disease is slightly improved from prior exam. No evidence of pleural effusion or pneumothorax. IMPRESSION: 1. Interval improvement in pulmonary edema and multifocal airspace opacities which may represent ate lectasis, pneumonia, and/or aspiration. 2. Endotracheal tube, enteric tube, and venous catheter are in satisfactory position. ACT 112: Negative or not required by law. Electronically signed by: Kal Israel M.D. 04/20/2021 6:43 PM
[2021-04-20 18:51] LABS: iSTAT Allen Test Pass; iSTAT Arterial Blood Gas HCO3 28 meg/L (19-24); iSTAT Arterial Blood Gas pCO2 46 mmHg (35-46); iSTAT Arterial Blood Gas pH 7.38 (7.35-7.45); iSTAT Arterial Blood Gas pO2 73 mmHg (80-95); iSTAT Carbon Dioxide 29 mmol/L (24-31); iSTAT FiO2 75 %; iSTAT Site R Radial
[2021-04-20] MEDS ORDERED: NOREPINEPHRINE/D5W 8 MG/508 ML IV ONE (19:04)
[2021-04-20] MEDS: CISATRACURIUM BESYLATE 40 MG in 0.9 % SODIUM CHLORIDE 80 ML IV SCH ×2 (19:08→22:17)
[2021-04-20] MEDS: NOREPINEPHRINE/D5W 8 MG/508 ML BAG IV SCH (19:08)
--- NOTE | 2021-04-20 20:59 | Communication Note ---
Date of Service: April 20, 2021 Procedure: Prone Maneuver Attending: Dr. Gurrola APC: Christian Gerard PA-C Indication: Requiring lung recruitment intervention in the setting of advanced ARDS with poor lung compliance and oxygenation on standard ventilator settings. Patient requiring proning in the setting of advanced ARDS per imaging, ventilator requirements, and calculated P:F ratio. Appropriate staff was assembled including myself, Respiratory Therapy, and Nursing Staff. A time-out was completed verifying correct patient, time from recent pronation/supination, current ventilator settings, review of any prior issues during pronation/supination maneuvers. Patient was fully undressed as to be able to view all current IV sites, central venous access sites, arterial lines, end otracheal tube, Nguyễn catheter, etc. After properly identifying/securing all lines, tubes, etc., the patient was ``papoosed using flat sheets. On my count, the patient was slid to the edge of the bed. After reevaluating all lines, tubes, etc., the patient was then placed on their side allowing for RT to maintain control of ET tube and ready for completion of Pronation maneuver. Final check of all lines, tubes, etc. was completed by myself and nursing staff. Blood pressure, heart rhythm, and oxygen saturations were monitored for several minutes s/p maneuver. Discussion was held with patients RN and RT regarding ongoing management. Patient tolerated maneuver well. No immediate complications were noted. TIME PRONE: 2144 I have personally spent 20 minutes of critical care time in the direct management of this patient. This is a life/limb threatening event. This includes time spent evaluating patient, direct bedside care, chart review, placing orders, interpretation of diagnostic studies, discussion with consultants, patient, and family members, as well as other required patient management activities. This time is exclusive of all separately billable procedures, and teaching time and separate from and in addition to any other critical care service time. Coding Level of Care Code Critical Care ea addt'l 30 min Time Spent (min) 20
[2021-04-20] MEDS: REMDESIVIR 100 MG in SODIUM CHLORIDE 0.9% 230 ML IV SCH (22:16)
[2021-04-20] MEDS ORDERED: SEVERE STRESS LEVEL ONE (22:55)
[2021-04-20] MEDS ORDERED: ICU SEVERE HYPERGLYCEMIA PROTOCOL ONE (22:55)
[2021-04-20] MEDS ORDERED: INSULIN PROTOCOL GOAL RANGE ONE (22:55)
[2021-04-20] MEDS ORDERED: PHARMACY GLYCEMIC MGMT CONSULT PRN (23:10)
[2021-04-20] MEDS ORDERED: NovoLIN-R BOLUS FROM BAG IV ONE (23:15)
[2021-04-20] MEDS: INSULIN REGULAR 250 UNITS in SODIUM CHLORIDE 0.9% 247.5 ML IV SCH (23:39)
[2021-04-21] MEDS: CISATRACURIUM BESYLATE 40 MG in 0.9 % SODIUM CHLORIDE 80 ML IV SCH ×7 (00:38→23:39)
[2021-04-21] MEDS: EPOPROSTENOL SODIUM (GLYCINE) 1.5 MG/5 ML INH PRN ×2 (00:50→01:55)
[2021-04-21] MEDS: ARTIFICIAL TEARS OP OINT 3.5 GM TUBE OP SCH ×5 (02:20→18:39)
[2021-04-21] MEDS: propofoL 1,000 MG/100 ML VIAL IV SCH ×5 (02:27→22:47)
[2021-04-21 04:38] LABS: iSTAT Allen Test Pass; iSTAT Arterial Blood Gas HCO3 27 meg/L (19-24); iSTAT Arterial Blood Gas pCO2 43 mmHg (35-46); iSTAT Arterial Blood Gas pO2 83 mmHg (80-95); iSTAT Carbon Dioxide 28 mmol/L (24-31); iSTAT FiO2 60 %; iSTAT Site R Radial
[2021-04-21 05:29] LABS: Hematocrit (blood only) 47.2 % (42-52); Hemoglobin 15.5 g/dL (14.0-18.0); Mean Corpuscular Hemoglobin 28.8 pg (25-34); Mean Corpuscular Hgb Conc 32.8 g/dL (32-36); Mean Corpuscular Volume 87.6 fL (80-100); Mean Platelet Volume 10.2 fL (7.4-10.4); Platelet Count 423 K/uL (130-400); RDW Coefficient of Variation 13.4 % (11.5-14.5); RDW Standard Deviation 42.9 fL (36.4-46.3); Red Blood Count 5.39 M/uL (4.7-6.1); White Blood Count 24.03 K/uL (4.8-10.8)
[2021-04-21 05:56] LABS: BUN Creatinine Ratio 29.3 (10-20); Calcium 8.9 mg/dl (8.5-10.1); Est GFR (African American) 57.4 ml/min; Est GFR (Non-African American) 49.5 ml/min; Potassium 3.9 mmol/L (3.5-5.1)
[2021-04-21] MEDS: fentaNYL DRIP 1,250 MCG/250 ML BAG IV SCH ×2 (05:57→19:30)
[2021-04-21 06:21] LABS: C Reactive Protein 7.09 mg/dl (0-0.29); Phosphorus 4.1 mg/dl (2.5-4.9)
[2021-04-21 08:04] LABS: Estimated Average Glucose 143 mg/dl; Hemoglobin A1C 6.6 % (4.5-5.6)
[2021-04-21] MEDS: guaiFENesin 600 MG TABCR PO SCH ×2 (08:10→19:17)
[2021-04-21] MEDS: SODIUM CHLORIDE 0.65% NA SOLN 45 ML (OCEAN) SCH ×3 (08:10→20:46)
[2021-04-21] MEDS: ENOXAPARIN INJ 40 MG/0.4 ML SYR SQ SCH (08:11)
[2021-04-21] MEDS: ZINC SULFATE 220 MG CAPSULE PO SCH (08:12)
[2021-04-21] MEDS: carvediloL 6.25 MG TAB PO SCH ×2 (08:12→20:46)
[2021-04-21] MEDS: ASCORBIC ACID 500 MG TAB PO SCH ×2 (08:12→20:47)
[2021-04-21] MEDS: CHOLECALCIFEROL 1,000 UNITS 25 MCG TAB PO SCH (08:12)
[2021-04-21] MEDS: FUROSEMIDE 40 MG in SYRINGE 0 ML IV SCH (08:13)
--- NOTE | 2021-04-21 08:24 | Critical Care Progress Note ---
Date of Service April 21, 2021 Assessment & Plan (1) Pneumonia due to COVID-19 virus: (2) Acute hypoxemic respiratory failure: Plan: 60-year-old male with COVID-19 viral pneumonia. Intubated 04/20/2021 Neuro - [facility] ICU: Negative Paralyzed on Nimbex Continue with propofol and fentanyl Cardiac - Hypotensive Likely from sedation Vasopressor support to keep MAP greater than 65 Respiratory - --VDRF secondary to acute hypoxic respiratory failure Secondary to multilobar COVID-19 pneumonia Complete the course of remdesivir and dexamethasone COVID-19 PCR positive CRP 8.5 --> 1.7 --> 7.09 Procalcitonin 0.15 Continue with lung protective ventilation High PEEP, low tidal volume to keep Plateau < 30 with permissive hypercapnea if need be. Monitor ABGs GI - Trophic feeds RENAL/LYTES - --CKD Monitor BUNs/creatinine Avoid nephrotoxic medication ENDO - Continue with ICU hyperglycemia protocol HEME - Leukocytosis likely from steroids Monitor H&H ID - COVID-19 management as above --Prophylaxis VTE: Lovenox GI: Protonix Lines: Right IJ, positive Nguyễn Diet: Trophic feeds Plan: In/out: +126, urine output 1410 ABG 7.4 on 50% PEEP of 12 We will supine the patient later today Continue with diuretics to keep the patient euvolemic to negative balance Continue to wean down on FiO2 and PEEP gradually. We will try to wean off Precedex tomorrow Try to wean off vasopressor support I have personally spent 45 minutes of critical care time in the direct management of this patient. This is a life/limb threatening event. This includes time spent evaluating patient, direct bedside care, chart review, placing orders, interpretation of diagnostic studies, discussion with consultants, patient, and family members, as well as other required patient management activities. This time is exclusive of all separately billable procedures, and teaching time and separate from and in addition to any other critical care service time. Please note the above document was generated using voice recognition software. It may contain grammatical, syntax or spelling errors. Admission and Anticipated Discharge Date Admission Date: April 16, 2021 Subjective Patient seen and examined at bedside. No acute distress. Patient was prone at the time of examination He was on PEEP of 12, FiO2 40% saturating 94% I went down FiO2 to 40% Afebrile Urinating well He was on propofol and fentanyl for sedation and analgesia Review of Systems Review of Systems: Unobtainable due to endotracheal tube Physical Exam Physical Exam: Constitutional: No acute distress HEENT: EOMI, PERRLA Respiratory system: Decreased air entry bilaterally, no wheeze, no rhonchi, positive crackles bilaterally CVS: S1-S2 positive, no murmurs or gallops Abdomen: Soft, nontender, nondistended, positive bowel sounds x4 Extremities: +2 pulses bilaterally radialis/ dorsalis pedis, no cyanosis, +1 pitting edema bilateral lower extremity Neuro: Paralyzed Psych: Unable to assess G/U: Positive Nguyễn Skin: no rashes, warm and dry Lymphatic: no cervical or axillary lymphadenopathy Results & Data Results & Data ([facility]) Vital Signs (Past 12 Hours) Vital Signs Temp Pulse Resp BP Pulse Ox 04/21/21 07:59 59 L 22 93 04/21/21 06:08 36.1 C L 61 128/48 L 95 04/21/21 05:18 36.1 C L 63 123/54 L 94 04/21/21 05:08 36.1 C L 63 123/50 L 93 04/21/21 04:38 36.2 C L 64 123/53 L 93 04/21/21 04:22 64 22 94 04/21/21 03:08 36.4 C L 66 124/63 94 04/21/21 02:56 68 22 119/62 94 04/21/21 02:38 36.5 C 67 121/67 94 04/21/21 02:08 36.6 C 69 125/59 L 94 04/21/21 01:58 70 22 92 04/21/21 01:56 70 22 115/60 92 04/21/21 01:38 36.8 C 70 119/57 L 93 04/21/21 01:08 36.9 C 71 116/57 L 92 04/21/21 00:48 37.0 C 73 22 111/61 91 04/21/21 00:38 37.1 C 73 120/56 L 93 04/21/21 00:18 37.1 C 74 115/58 L 93 04/21/21 00:08 37.1 C 74 115/58 L 93 04/20/21 23:55 74 22 124/64 94 04/20/21 23:48 37.2 C 73 124/64 94 04/20/21 23:38 37.3 C 71 123/56 L 94 04/20/21 23:18 37.4 C 72 120/56 L 93 04/20/21 23:08 37.5 C 73 111/57 L 93 04/20/21 23:02 75 22 120/64 93 04/20/21 22:48 37.6 C H 77 120/64 93 04/20/21 22:38 37.6 C H 76 143/67 H 94 04/20/21 22:18 37.7 C H 76 125/72 93 04/20/21 22:08 37.7 C H 77 130/68 93 04/20/21 22:00 76 22 133/71 94 04/20/21 21:48 37.8 C H 78 125/66 93 04/20/21 21:38 37.9 C H 79 117/67 93 04/20/21 21:18 37.9 C H 80 118/67 93 04/20/21 21:08 37.9 C H 80 113/63 92 04/20/21 21:02 80 22 126/61 92 04/20/21 20:51 80 95 04/20/21 20:38 38.0 C H 80 100/59 L 93 04/21/21 04:48 04/21/21 04:48 Coding Level of Care Code Critical Care 1st 30-74 mins Diagnoses Pneumonia due to COVID-19 virus U07.1; J12.82 Acute hypoxemic respiratory failure J96.01 Time Spent (min) 45
[2021-04-21] MEDS: INSULIN ASPART 100 UNITS/ML 3 ML PEN SC SCH ×4 (08:42→20:46)
[2021-04-21] MEDS: ICU PROTOCOL FOR HYPERGLYCEMIA SCH (08:46)
--- NOTE | 2021-04-21 10:53 | Pharmacy Report ---
Pharmacy Glycemic Short Note 2 - Date of Service April 21, 2021 - Glycemic Short BSG Results (Last 24 hours): 04/20/21 04/21/21 04/21/21 22:26 00:50 01:44 Glucose POC Glucose POC Glucose (other) 238 H 218 H 207 H 04/21/21 04/21/21 04/21/21 02:31 04:05 04:48 Glucose 178 H POC Glucose POC Glucose (other) 200 H 190 H 04/21/21 04/21/21 04/21/21 04:56 05:50 06:34 Glucose POC Glucose POC Glucose (other) 180 H 172 H 165 H 04/21/21 08:19 Glucose POC Glucose 138 H POC Glucose (other) OUTPATIENT ANTIDIABETIC REGIMEN: * n/a * A1c = 6.6% on 04/21/21 ASSESSMENT: * 60yo male -with presumed pre-diabetes per A1c, however patient was on a recent prednisone taper 04/06 therefore this may be falsely elevated. * Pt initiated on IV insulin infusion per ICU hyperglycemia protocol. * Auto pharmacy consult per protocol. * Will continue with IV insulin infusion as it is the standard of care in ICU. Pt is sedated and on mechanical ventilation. Will initiate transition to SQ basal bolus insulin regimen with patient meets criteria for transition. Anticipating basal bolus with NPH + NovoLog for steroid induced hyperglycemia secondary to daily dexamethasone for COVID-19. PLAN FOR INPATIENT GLYCEMIC CONTROL: * Continue IV insulin infusion protocol * Goal range 140-180 mg/dl * Transition to NPH + NovoLog when criteria for transition met.
[2021-04-21] MEDS: CHLORASEPTIC 1.4% SOLN 180 ML BTL MT SCH ×2 (11:41→16:03)
[2021-04-21] MEDS: PANTOprazole 40 MG in SYRINGE 0 ML IV SCH (11:44)
--- NOTE | 2021-04-21 14:51 | Hospitalist Progress Note ---
Date of Service April 21, 2021 Assessment & Plan (1) Acute hypoxemic respiratory failure: Plan: also sick with Covid, patient failed outpatient prednisone course. Patient has been teetering for the last 5 days between BiPAP and high flow, ultimately becoming significantly hypoxic yesterday especially after an episode where he took his own BiPAP off. Subsequent intubation on pressors and paralytics in the ICU (2) Pneumonia due to COVID-19 virus: Plan: Completed 5-day course of remdesivir Continues on dexamethasone daily at a new dose of 10 mg. Continues on furosemide 40 mg daily for goal net negative overall Mechanical ventilation per pulmonology Continue to prone per ICU team Wean vent as tolerated. (3) Acute renal failure: Plan: Around baseline, cont to monitor daily BMP While on daily Lasix therapy. Will accept a slightly decreased kidney function if it helps him breathe better. (4) Elevated troponin: Plan: Likely demand ischemia, ACS less likely, patient denies any chest pain and there was no escalation of serial trop trend. Echocardiogram deferred secondary to Covid positive status (5) HTN (hypertension): Plan: at goal, cont coreg and lasix therapy (6) Transaminitis: Plan: Mild transaminitis, likely secondary to Covid illness. (7) DVT prophylaxis: Plan: PhysicianLovenox Full code Dispo-Continue ICU monitoring and care Eneida Gutierrez DO [facility] Hospitalist Admission and Anticipated Discharge Date Admission Date: April 16, 2021 Subjective 60-year-old man with acute respiratory failure secondary to Covid pneumonia, intubated and on pressors post intubation on 04/20. He also required a paralytic and remains on Nimbex. At the current time he is supine and being washed out by the nurse. Nurse reports the IJ came out of position and a peripheral ultrasound-guided line was placed in left upper extremity today. He is now off Levophed. Hemodynamics are improved. He is sedated on fentanyl and Versed. Oxygenating well on mechanical ventilation Review of Systems Review of Systems: The patient is to give review of systems secondary to intubation and sedation Physical Exam Physical Exam: CONSTITUTIONAL: WNWD, vitals as above, ill-appearing, intubated and sedated/paralyzed EYES: normal conjunctivae, no scleral icterus ENT: external ear and nose normal, MMM NECK: trachea midline RESPIRATORY: Lungs are clear to auscultation throughout, no rales or wheezes, mechanically vented CARDIOVASCULAR: regular rate and rhythm, S1 and 2 heard without murmurs, gallops or rubs, no JVD, no peripheral edema GASTROINTESTINAL: soft, nontender, nondistended, no guarding MUSCULOSKELETAL: strength 5/5 throughout, head is normocephalic and atraumatic SKIN: warm and dry NEUROLOGIC: no sensory deficit, normal cognition, normal speech, no tremor, no gross focal deficits. CN2-12 grossly intact. PSYCHIATRIC: alert cooperative and oriented to person, place and time. Results & Data Results & Data ([facility]) Vital Signs (Past 12 Hours) Vital Signs Temp Pulse Resp BP Pulse Ox 04/21/21 12:35 36.6 C 04/21/21 12:18 61 113/50 L 92 04/21/21 12:08 60 113/53 L 92 04/21/21 11:48 62 114/51 L 92 04/21/21 11:38 61 114/52 L 91 04/21/21 11:25 61 22 91 04/21/21 11:18 62 115/54 L 91 04/21/21 11:08 68 110/53 L 93 04/21/21 11:01 36.6 C 04/21/21 10:48 61 105/52 L 94 04/21/21 10:38 59 L 122/50 L 95 04/21/21 10:18 59 L 120/52 L 95 04/21/21 10:08 59 L 119/53 L 94 04/21/21 09:48 59 L 121/52 L 94 04/21/21 09:38 59 L 120/48 L 94 04/21/21 09:18 59 L 124/53 L 94 04/21/21 09:08 60 111/51 L 93 04/21/21 08:48 57 L 134/53 L 94 04/21/21 08:38 58 L 133/52 L 94 04/21/21 08:18 56 L 126/53 L 93 04/21/21 08:08 58 L 125/52 L 94 04/21/21 08:00 36.5 C 04/21/21 07:59 59 L 22 93 04/21/21 07:48 59 L 130/52 L 96 04/21/21 07:38 59 L 130/53 L 96 04/21/21 07:18 59 L 129/49 L 95 04/21/21 07:08 59 L 133/53 L 95 04/21/21 06:08 36.1 C L 61 128/48 L 95 04/21/21 05:18 36.1 C L 63 123/54 L 94 04/21/21 05:08 36.1 C L 63 123/50 L 93 04/21/21 04:38 36.2 C L 64 123/53 L 93 04/21/21 04:22 64 22 94 04/21/21 03:08 36.4 C L 66 124/63 94 04/21/21 02:56 68 22 119/62 94 Laboratory Results Short CBC 04/21/21 Range/Units 04:48 WBC 24.03 H (4.8-10.8) K/uL Hgb 15.5 (14.0-18.0) g/dL Hct 47.2 (42-52) % Plt Count 423 H (130-400) K/uL BMP 04/21/21 04:48 Sodium 137 Potassium 3.9 Chloride 102 Carbon Dioxide 30 BUN 44 H Creatinine 1.51 H Glucose 178 H Calcium 8.9 Medications Administered Current Inpatient Medications Acetaminophen (Acetaminophen 325 Mg Tab) 325 mg PO Q6H PRN PRN Reason: Mild Pain Stop: 05/16/21 23:48 Albuterol (Albuterol Hfa 8 Gm Inhaler) 2 puffs INH QIDR PRN PRN Reason: Shortness Of Breath Or Wheezin Stop: 05/17/21 06:59 Ascorbic Acid (Ascorbic Acid 500 Mg Tab) 500 mg PO BID [facility] Stop: 05/18/21 20:59 Last Admin: 04/21/21 08:12 Dose: 500 mg Documented by: Carvedilol (Carvedilol 6.25 Mg Tab) 6.25 mg PO BID [facility] Stop: 05/17/21 20:59 Last Admin: 04/21/21 08:12 Dose: Not Given Documented by: Enoxaparin Sodium (Enoxaparin Inj 40 Mg/0.4 Ml Syr) 40 mg SQ QAM [facility] Stop: 05/19/21 08:59 Last Admin: 04/21/21 08:11 Dose: 40 mg Documented by: Epoprostenol Sodium (Epoprostenol Sodium (Glycine) 1.5 Mg/5 Ml) 1.5 mg INH . CONTINUOUS NEB PRN; Protocol PRN Reason: CONTINUOUS NEB TITRATION Stop: 05/20/21 16:38 Last Admin: 04/21/21 01:55 Dose: 1.5 mg Documented by: Fentanyl Citrate (Fentanyl Bolus From Bag) 50 mcg IV Q60M PRN PRN Reason: Pain or Agitation Stop: 05/04/21 18:00 Guaifenesin (Guaifenesin 600 Mg Tabcr) 600 mg PO BID@0800,2000 [facility] Stop: 05/17/21 00:00 Last Admin: 04/21/21 08:10 Dose: Not Given Documented by: Furosemide 40 mg/ Syringe 4 mls @ 4 mls/min IV DAILY [facility] Stop: 05/19/21 08:59 Last Admin: 04/21/21 08:13 Dose: 4 mls/min Documented by: Dexamethasone 10 mg/ Syringe 2.5 mls @ 1 mls/min IV Q24H [facility] Stop: 05/20/21 16:59 Last Admin: 04/20/21 18:27 Dose: 1 mls/min Documented by: Cisatracurium Besylate 40 mg/ (Sodium Chloride) 100 mls @ 26.25 mls/hr IV .Q3H49M [facility]; Protocol Stop: 05/20/21 18:14 Last Admin: 04/21/21 13:49 Dose: 2 mcg/kg/min, 26.3 mls/hr Documented by: Propofol (Diprivan) 1,000 mg in 100 mls @ 18.375 mls/hr IV .Q5H27M [facility]; Protocol Stop: 04/23/21 18:14 Last Admin: 04/21/21 11:45 Dose: 35 mcg/kg/min, 18.4 mls/hr Documented by: Fentanyl Citrate (Fentanyl Drip) 1,250 mcg in 250 mls @ 20 mls/hr IV .[id number] [facility]; Protocol Stop: 05/04/21 18:14 Last Titration: 04/21/21 06:54 Dose: 100 mcg/hr, 20 mls/hr Documented by: Norepinephrine Bitartrate (Levophed/D5w) 8 mg in 508 mls @ 0 mls/hr IV .Q0M [facility]; Protocol Stop: 05/20/21 19:14 Last Titration: 04/21/21 12:34 Dose: 0 mcg/kg/min, 0 mls/hr Documented by: Insulin Human Regular 250 (units/ Sodium Chloride) 250 mls @ 3.3 mls/hr IV .Q24 H [facility]; Protocol Stop: 05/20/21 23:14 Last Titration: 04/21/21 06:54 Dose: 3.3 units/hr, 3.3 mls/hr Documented by: Pantoprazole Sodium 40 mg/ (Syringe) 10 mls @ 5 mls/min IV DAILY@1100 [facility] Stop: 05/21/21 10:59 Last Admin: 04/21/21 11:44 Dose: 5 mls/min Documented by: Insulin Aspart (Insulin Aspart 100 Units/Ml 3 Ml Pen) 0 units SC ACHS [facility] Stop: 05/21/21 07:29 Last Admin: 04/21/21 11:41 Dose: Not Given Documented by: Miscellaneous (Icu Protocol For Hyperglycemia) 1 ea N/A QAM [facility] Stop: 04/23/21 08:59 Last Admin: 04/21/21 08:46 Dose: Not Given Documented by: Miscellaneous Information (Pharmacy Glycemic Mgmt Consult) 1 ea N/A UD PRN PRN Reason: Consult Stop: 05/20/21 23:09 Multi-Ingredient Cream (Artificial Tears Op Oint 3.5 Gm Tube) 1 appln OP Q4H [facility] Stop: 05/20/21 18:44 Last Admin: 04/21/21 13:50 Dose: 1 appln Documented by: Phenol (Chloraseptic 1.4% Soln 180 Ml Btl) 2 sprays MT Q6 [facility] Stop: 05/20/21 14:14 Last Admin: 04/21/21 11:41 Dose: Not Given Documented by: Propofol (Propofol Bolus From Bag) 20 mg IV Q5M PRN PRN Reason: Sedation Stop: 04/23/21 18:00 Sodium Chloride (Sodium Chloride 0.65% Na Soln 45 Ml ([place])) 2 sprays NA TID [facility] Stop: 05/20/21 13:59 Last Admin: 04/21/21 13:50 Dose: Not Given Documented by: Tramadol HCl (Tramadol Hcl 50 Mg Tablet) 25 mg PO Q4H PRN PRN Reason: Pain Stop: 05/16/21 23:48 Vitamin D (Cholecalciferol 1,000 Units 25 Mcg Tab) 1,000 units PO QAM [facility] Stop: 05/19/21 08:59 Last Admin: 04/21/21 08:12 Dose: 1,000 units Documented by: Zinc Sulfate (Zinc Sulfate 220 Mg Capsule) 220 mg PO [facility] Stop: 05/19/21 08:59 Last Admin: 04/21/21 08:12 Dose: 220 mg Documented by:
[2021-04-21] MEDS: dexAMETHasone 10 MG in SYRINGE 0 ML IV SCH (16:09)
--- NOTE | 2021-04-21 20:46 | Procedure Note ---
Procedure Note Date of Service April 21, 2021 Note Procedure: Arterial Line Placement Attending: Dr. Mark APC: Christian Gerard PA-C Indication: Hemodynamic monitoring Anesthesia: Lidocaine 1% Emergent Consent implied in the setting of clinical deterioration and need for close hemodynamic monitoring, ABG monitoring, frequent lab draws, etc. A time-out was completed verifying correct patient, procedure, site, positioning, and implant(s) or special equipment if applicable. Allens test was performed to ensure adequate perfusion. Patients RIGHT wrist was prepped and draped in the usual sterile fashion. Ultrasound guidance was used to aid needle placement. A 20g Arrow arterial line was introduced into the RIGHT Radial artery. Catheter was threaded, and the needle was removed with appropriate blood return. Good waveform was observed. The patient tolerated the procedure well. Co nfirmation of placement with ultrasound. Blood Loss: Minimal Complications: None Procedural Ultrasound Guidance: Procedure Date: 04/21/2021 Indication: Hemodynamic Monitoring, Frequent ABGs/Lab draws. Attending: Dr. Mark APC: Christian Gerard PA-C Artery Identified: YES Line confirmed in Artery with ultrasound: YES Complications: NONE Patient tolerated procedure: WELL Coding CPT Codes Tubes, Drains, and Vasc Access - Tubes, Drains, and Vasc Access: [id number] Place Catheter In Artery ([id number]) [facility] Procedure Codes (Charges) Tubes, Drains, and Vasc Access Procedure 3: Tubes, Drains, and Vasc Access: [id number] Place Catheter In Artery
--- NOTE | 2021-04-21 20:47 | Procedure Note ---
Procedure Note Date of Service April 21, 2021 Note Procedure: Internal Jugular Central Line Placement Attending: Dr. Mark APC: Christian Gerard PA-C Indication: Central Drug Administration, Poor Venous Access, Multiple Lab Draws Necessary, etc. Anesthesia: Lidocaine 1% Emergent consent implied in the setting of clinical deterioration and need for advanced intravenous access. A time-out was completed verifying correct patient, procedure, site, positioning, and implants(s) or special equipment if applicable. Patients LEFT Neck was cleansed and draped in the typical sterile fashion using Chloraprep. The Internal Jugular Vein and Carotid Artery were identified using ultrasound. T he superficial tissue was anesthetized using 4.0 mL of 1% lidocaine without epinephrine under direct visualization with the ultrasound. After adequate anesthetization was achieved, the Internal Jugular vein was cannulated under direct ultrasound guidance using an introducer needle on a syringe. Good venous blood return was maintained prior to removal of syringe from introducer needle. Using Seldinger Technique, a guide wire was advanced through the introducer needle without resistance. The introducer needle was removed and ultrasound images were obtained of the guide wire within the Internal Jugular Vein and saved to the patients medical record. The dilator was advanced to the vessel without resistance. The dilator was exchanged for the triple lumen catheter which was advanced into the vessel without resistance. The guide wire was removed intact from the catheter without issue. Claves were placed on each catheter tip with confirmation of good blood flow from each lumen. Each port was easily flushed with sterile saline. The catheter was placed at 18 cm and sutured in place. BioPatch was applied to the catheter and a sterile Tegaderm dressing was applied over the catheter with careful attention to sterility. Patient tolerated procedure well. No immediate complications were met. Post procedure x-ray was completed, placement was appropriate and no pneumothorax was noted. Images obtained are saved for permanent record Procedural Ultrasound Guidance: Procedure Date: 04/21/2021 Indication: Pressors, Multiple medications, poor peripheral access Attending: Dr. Mark APC: Christian Gerard PA-C Artery AND Vein visualized: YES Compressible Vein: YES Guidewire or Short Catheter seen in vein prior to dilation: YES Line confirmed in Vein with ultrasound: YES Images obtained and saved for permanent record. Coding CPT Codes Tubes, Drains, and Vasc Access - Tubes, Drains, and Vasc Access: [id number] Insertion Of Non-tunneled Catheter Age 5 Yrs> ([id number]) Tubes, Drains, and Vasc Access - Tubes, Drains, and Vasc Access: [id number] Ultrasound Guidance For Vascular ([id number]) [facility] Procedure Codes (Charges) Tubes, Drains, and Vasc Access Procedure 4: Tubes, Drains, and Vasc Access: [id number] Insertion Of Non-tunneled Catheter Age 5 Yrs> Procedure 5: Tubes, Drains, and Vasc Access: [id number] Ultrasound Guidance For Vascular
--- NOTE | 2021-04-21 20:55 | XRay Report ---
XR chest 1V portable CLINICAL HISTORY: s/p CVL COMPARISON STUDY: Chest radiograph April 20, 2021. FINDINGS: Tip of the endotracheal tube is 3.1 cm above the kalin. There is no pneumothorax following placement of a left internal jugular central line. Catheter tip projects over the distal left brachi ocephalic vein. The right internal jugular central line has been removed. Cardiomediastinal silhouett e is stable. Bilateral airspace opacities are similar to prior exam. IMPRESSION: 1. No pneumothorax following placement of a left internal jugular central line. Catheter tip projects over the distal left brachiocephalic vein. 2. No significant change in bilateral airspace opacities which favor an infectious process. ACT 112: Negative or not required by law. Electronically signed by: Alen Dunlap M.D. 04/21/2021 8:53 PM
--- NOTE | 2021-04-21 21:20 | Communication Note ---
Date of Service: April 21, 2021 Procedure: Prone Maneuver Attending: Dr. Mark APC: Christian Gerard PA-C Indication: Requiring lung recruitment intervention in the setting of advanced ARDS with poor lung compliance and oxygenation on standard ventilator settings. Patient requiring pronation in the setting of advanced ARDS per imaging, ventilator requirements, and calculated P:F ratio. Appropriate staff was assembled including myself, Respiratory Therapy, and Nursing Staff. A time-out was completed verifying correct patient, time from recent pronation/supination, current ventilator settings, review of any prior issues during pronation/supination maneuvers. Patient was fully undressed as to be able to view all current IV sites, central venous access sites, arterial lines, end otracheal tube, Nguyễn catheter, etc. After properly identifying/securing all lines, tubes, etc., the patient was ``papoosed using flat sheets. On my count, the patient was slid to the edge of the bed. After reevaluating all lines, tubes, etc., the patient was then placed on their side allowing for RT to maintain control of ET tube and ready for completion of Pronation maneuver. Final check of all lines, tubes, etc. was completed by myself and nursing staff. Blood pressure, heart rhythm, and oxygen saturations were monitored for several minutes s/p maneuver. Discussion was held with patients RN and RT regarding ongoing management. Patient tolerated maneuver well. No immediate complications were noted. TIME PRONE: 2114 I have personally spent 20 minutes of critical care time in the direct management of this patient. This is a life/limb threatening event. This includes time spent evaluating patient, direct bedside care, chart review, placing orders, interpretation of diagnostic studies, discussion with consultants, patient, and family members, as well as other required patient management activities. This time is exclusive of all separately billable procedures, and teaching time and separate from and in addition to any other critical care service time. Coding Level of Care Code Critical Care ea addt'l 30 min Time Spent (min) 20
[2021-04-22] MEDS: ARTIFICIAL TEARS OP OINT 3.5 GM TUBE OP SCH ×7 (00:09→23:08)
[2021-04-22] MEDS: CHLORASEPTIC 1.4% SOLN 180 ML BTL MT SCH ×2 (00:09→05:18)
[2021-04-22] MEDS: CISATRACURIUM BESYLATE 40 MG in 0.9 % SODIUM CHLORIDE 80 ML IV SCH ×4 (02:43→18:52)
[2021-04-22 05:12] LABS: Basophils # (auto) 0.03 K/uL (0-0.2); Basophils % (auto) 0.1 %; Hematocrit (blood only) 45.7 % (42-52); Hemoglobin 15.8 g/dL (14.0-18.0); Immature Granulocytes # (auto) 0.28 K/uL (0.00-0.02); Immature Granulocytes % (auto) 1.4 %; Lymphocytes # (auto) 0.48 K/uL (1.2-3.4); Lymphocytes % (auto) 2.4 %; Mean Corpuscular Hemoglobin 28.9 pg (25-34); Mean Corpuscular Hgb Conc 34.6 g/dL (32-36); Mean Corpuscular Volume 83.7 fL (80-100); Mean Platelet Volume 10.1 fL (7.4-10.4); Monocytes # (auto) 0.97 K/uL (0.11-0.59); Monocytes % (auto) 4.8 %; Neutrophils % (auto) 91.3 %; Platelet Count 523 K/uL (130-400); RDW Coefficient of Variation 13.3 % (11.5-14.5); RDW Standard Deviation 39.1 fL (36.4-46.3); Red Blood Count 5.46 M/uL (4.7-6.1); White Blood Count 20.06 K/uL (4.8-10.8)
[2021-04-22] MEDS: NOREPINEPHRINE/D5W 8 MG/508 ML BAG IV SCH (05:12)
[2021-04-22] MEDS: propofoL 1,000 MG/100 ML VIAL IV SCH ×4 (05:12→18:49)
[2021-04-22 05:38] LABS: BUN Creatinine Ratio 30.7 (10-20); Calcium 8.8 mg/dl (8.5-10.1); Creatinine Clr Calc Pharmacy 54.2 ml/min; Est GFR (African American) 55.1 ml/min; Est GFR (Non-African American) 47.6 ml/min; Magnesium 2.8 mg/dl (1.8-2.4)
[2021-04-22 05:53] LABS: C Reactive Protein 6.03 mg/dl (0-0.29); Phosphorus 3.4 mg/dl (2.5-4.9)
[2021-04-22 06:00] LABS: iSTAT Art Bld Gas pCO2 Correct 36 mmHg (35-46); iSTAT Arterial Blood Gas HCO3 28 meg/L (19-24); iSTAT Arterial Blood Gas pCO2 37 mmHg (35-46); iSTAT Arterial Blood Gas pH 7.49 (7.35-7.45); iSTAT Arterial Blood Gas pO2 71 mmHg (80-95); iSTAT Arterial Blood Gas pO2 C 70; iSTAT Carbon Dioxide 29 mmol/L (24-31); iSTAT FiO2 40 %; iSTAT Hematocrit 44 % (42-52); iSTAT Potassium 3.9 mmol/L (3.3-5.0); iSTAT Site Art Line; iSTAT Sodium 142 mmol/L (135-144)
[2021-04-22] MEDS: INSULIN ASPART 100 UNITS/ML 3 ML PEN SC SCH ×5 (07:07→20:09)
[2021-04-22] MEDS: guaiFENesin 600 MG TABCR PO SCH ×2 (07:08→19:42)
[2021-04-22] MEDS: fentaNYL DRIP 1,250 MCG/250 ML BAG IV SCH ×2 (07:28→19:42)
[2021-04-22] MEDS: carvediloL 6.25 MG TAB PO SCH ×2 (07:29→19:43)
[2021-04-22] MEDS: ENOXAPARIN INJ 40 MG/0.4 ML SYR SQ SCH (07:30)
[2021-04-22] MEDS: ZINC SULFATE 220 MG CAPSULE PO SCH (07:30)
[2021-04-22] MEDS: ASCORBIC ACID 500 MG TAB PO SCH ×2 (07:30→19:42)
[2021-04-22] MEDS: CHOLECALCIFEROL 1,000 UNITS 25 MCG TAB PO SCH (07:30)
[2021-04-22] MEDS ORDERED: INSULIN PROTOCOL GOAL RANGE ONE (08:15)
[2021-04-22] MEDS ORDERED: STAT IV Infusion **Titration per Protocol STA (08:15)
--- NOTE | 2021-04-22 08:39 | Critical Care Progress Note ---
Date of Service April 22, 2021 Assessment & Plan (1) Pneumonia due to COVID-19 virus: (2) Acute hypoxemic respiratory failure: Plan: 60-year-old male with COVID-19 viral pneumonia. Intubated 04/20/2021 Neuro - [facility] ICU: Negative Paralyzed on Nimbex Continue with propofol and fentanyl Cardiac - Hypotensive Likely from sedation Vasopressor support to keep MAP greater than 65 Respiratory - --VDRF secondary to acute hypoxic respiratory failure Secondary to multilobar COVID-19 pneumonia Complete the course of remdesivir and dexamethasone COVID-19 PCR positive CRP 8.5 --> 1.7 --> 7.09 --> 6.03 Procalcitonin 0.15 Continue with lung protective ventilation High PEEP, low tidal volume to keep Plateau < 30 with permissive hypercapnea if need be. Monitor ABGs GI - Trophic feeds RENAL/LYTES - --CKD Monitor BUNs/creatinine Avoid nephrotoxic medication ENDO - Continue with ICU hyperglycemia protocol HEME - Leukocytosis likely from steroids Monitor H&H ID - COVID-19 management as above --Prophylaxis VTE: Lovenox GI: Protonix Lines: Left IJ 04/21/20, right radial, positive Nguyễn Diet: Trophic feeds Plan: In/out: +321, urine output 1350 ABG 7.49/37/71 on PEEP of 12, 40% --> respiratory rate was brought down to 18 We will supine the patient later today. We will try to stop the paralytics af ter the patient is supine. Continue with diuretics to keep the patient euvolemic to negative balance Patient has CKD and his baseline creatinine is 1.4-1.6 Today creatinine was 1.56. Continue with same dose of Lasix for the time being. I have personally spent 37 minutes of critical care time in the direct management of this patient. This is a life/limb threatening event. This includes time spent evaluating patient, direct bedside care, chart review, placing orders, interpretation of diagnostic studies, discussion with consultants, patient, and family members, as well as other required patient management activities. This time is exclusive of all separately billable procedures, and teaching time and separate from and in addition to any other critical care service time. Please note the above document was generated using voice recognition software. It may contain grammatical, syntax or spelling errors. Admission and Anticipated Discharge Date Admission Date: April 16, 2021 Subjective Patient seen and examined at bedside. No acute distress, no adverse events overnight. Patient was found during examination He was on 100 of fentanyl 20 of propofol and 0.2 of Levophed He was saturating 92-93% on PEEP of 10, 40% I went down the PEEP to 8 Has been afebrile Review of Systems Review of Systems: Unobtainable due to endotracheal tube and Other (Paralyzed) Physical Exam Physical Exam: Constitutional: No acute distress HEENT: PERRLA, positive ETT Respiratory system: Decreased air entry bilaterally, no wheeze, no rhonchi, positive crackles bilaterally CVS: S1-S2 positive, no murmurs or gallops Abdomen: Soft, nontender, nondistended, positive bowel sounds x4 Extremities: +2 pulses bilaterally radialis/ dorsalis pedis, no cyanosis, +1 pi tting edema bilateral lower extremity Neuro: Paralyzed Psych: Unable to assess G/U: Positive Nguyễn Skin: no rashes, warm and dry Lymphatic: no cervical or axillary lymphadenopathy Results & Data Results & Data ([facility]) Vital Signs (Past 12 Hours) Vital Signs Temp Pulse Resp BP Pulse Ox 04/22/21 08:10 61 18 92 04/22/21 06:08 36.7 C 59 L 129/51 L 04/22/21 05:08 36.7 C 61 141/59 H 04/22/21 04:08 36.8 C 60 137/58 L 04/22/21 03:31 61 22 91 04/22/21 03:08 37.0 C 65 118/56 L 90 04/22/21 02:08 37.2 C 62 131/59 L 04/22/21 01:08 37.2 C 67 115/53 L 92 04/22/21 00:08 37.0 C 68 118/54 L 93 04/22/21 00:00 62 131/59 L 04/21/21 23:38 36.8 C 68 146/62 H 93 04/21/21 23:19 36.5 C 64 173/63 H 95 04/21/21 23:00 36.3 C L 70 91 04/21/21 22:58 69 22 91 04/21/21 22:48 36.2 C L 89/51 L 92 04/21/21 22:38 36.1 C L 70 91/49 L 91 04/21/21 22:18 36.0 C L 68 90/50 L 90 04/21/21 22:08 35.9 C L 68 93/50 L 90 04/21/21 21:49 35.8 C L 70 87/45 L 85 L 04/21/21 21:39 35.8 C L 69 185/71 H 90 04/21/21 21:29 35.5 C L 67 211/69 H 91 04/21/21 21:08 35.7 C L 57 L 132/60 97 04/21/21 20:48 35.5 C L 66 73/39 L 89 L 04/21/21 20:39 35.4 C L 66 91/44 L 92 04/22/21 04:36 04/22/21 04:36 Coding Level of Care Code Critical Care 1st 30-74 mins Diagnoses Pneumonia due to COVID-19 virus U07.1; J12.82 Acute hypoxemic respiratory failure J96.01 Time Spent (min) 37
[2021-04-22] MEDS: ICU PROTOCOL FOR HYPERGLYCEMIA SCH (08:45)
[2021-04-22] MEDS ORDERED: INSULIN GLARGINE SOLOSTAR 100 UNITS/ML 3 ML PEN SC ONE (09:00)
--- NOTE | 2021-04-22 10:21 | Pharmacy Report ---
Pharmacy Glycemic Short Note 2 - Date of Service April 22, 2021 - Glycemic Short BSG Results (Last 24 hours): 04/21/21 04/21/21 04/21/21 10:41 12:29 14:14 Glucose POC Glucose 147 H 123 H 103 H POC Glucose (other) 04/21/21 04/21/21 04/21/21 15:49 16:29 17:35 Glucose POC Glucose 108 H 112 H 117 H POC Glucose (other) 04/21/21 04/21/21 04/21/21 18:29 19:34 21:04 Glucose POC Glucose 120 H 114 H POC Glucose (other) 133 H 04/21/21 04/22/21 04/22/21 23:03 02:49 04:36 Glucose 117 H POC Glucose POC Glucose (other) 124 H 124 H 04/22/21 04/22/21 07:36 08:41 Glucose POC Glucose 100 H POC Glucose (other) 109 H OUTPATIENT ANTIDIABETIC REGIMEN: * n/a * A1c = 6.6% on 04/21/21 ASSESSMENT: 04/22 * IV insulin infusion stable at 2.6 units/hr since 04/21 @ 1430. Will transition from IV insulin to SQ basal bolus insulin regimen per transition protocol * Calculated TDD = 62 units/day. Will give 80% of this for conversion of IV to SQ. NovoLog Q4hrs per scale if additional insulin needed * Pt remains NPO, on mechanical ventilation, paralyzed, prone positioning. SQ insulin requested to minimize BSG checks and RN exposure 04/21 * 60yo male -with presumed pre-diabetes per A1c, however patient was on a recent prednisone taper 04/06 therefore this may be falsely elevated. * Pt initiated on IV insulin infusion per ICU hyperglycemia protocol. * Auto pharmacy consult per protocol. * Will continue with IV insulin infusion as it is the standard of care in ICU. Pt is sedated and on mechanical ventilation. Will initiate transition to SQ basal bolus insulin regimen with patient meets criteria for transition. Anticipating basal bolus with NPH + NovoLog for steroid induced hyperglycemia secondary to daily dexamethasone for COVID-19. PLAN FOR INPATIENT GLYCEMIC CONTROL: * Transition off of IV insulin infusion protocol * Basal insulin * Lantus 50 units SQ x 1 dose * NovoLog Q4hrs * Goal range: 110-140 mg/dl * CF = 20mg/dl/unit * CR = 1 unit for every 6 grams CHO consumed (when diet started)
--- NOTE | 2021-04-22 10:44 | Hospitalist Progress Note ---
Date of Service April 22, 2021 Assessment & Plan (1) Acute hypoxemic respiratory failure: Plan: Failed outpatient prednisone course. Remained on hi flow to BIPAP for several days as he was a DNR. Changed his mind and was intubated on 04/20, required paralytic/pressor support. Remains in ICU on mechanically ventilated. (2) Pneumonia due to COVID-19 virus: Plan: Completed 5-day course of remdesivir Continues on dexamethasone daily at a new dose of 10 mg. Continues on furosemide 40 mg daily for goal net negative overall Mechanical ventilation per pulmonology Continue to prone per ICU team Wean vent as tolerated. (3) Acute renal failure: Plan: Around baseline, cont to monitor daily BMP While on daily Lasix therapy. Will accept a slightly decreased kidney function if it helps him breathe better. (4) Elevated troponin: Plan: Likely demand ischemia, ACS less likely, patient denies any chest pain and there was no escalation of serial trop trend. Echocardiogram deferred secondary to Covid positive status (5) HTN (hypertension): Plan: at goal, cont coreg and lasix therapy (6) Transaminitis: Plan: Mild transaminitis, likely secondary to Covid illness. (7) DVT prophylaxis: Plan: Lovenox Full code Dispo-Continue ICU monitoring and care Eneida Gutierrez DO [facility] Hospitalist Admission and Anticipated Discharge Date Admission Date: April 16, 2021 Subjective 60-year-old man with acute respiratory failure secondary to Covid pneumonia, was originally a DNR, subsequently intubated on 04/20. He also required a paralytic and remains on Nimbex. At the current time he is supine A-line and L IJ placed overnight Remains on a small dose Levophed Remains paralyzed He is sedated on fentanyl and Versed. Oxygenating well on mechanical ventilation Review of Systems Review of Systems: Cannot assess as patient is sedated and intubated. Physical Exam Physical Exam: CONSTITUTIONAL: WNWD, vitals as above, ill-appearing, intub ated and sedated/paralyzed EYES: normal conjunctivae, no scleral icterus ENT: external ear and nose normal, MMM NECK: trachea midline RESPIRATORY: Lungs are clear to auscultation throughout, no rales or wheezes, mechanically vented CARDIOVASCULAR: regular rate and rhythm, S1 and 2 heard without murmurs, gallops or rubs, no JVD, no peripheral edema GASTROINTESTINAL: soft, nontender, nondistended, no guarding MUSCULOSKELETAL: strength 5/5 throughout, head is normocephalic and atraumatic SKIN: warm and dry NEUROLOGIC: no sensory deficit, normal cognition, normal speech, no tremor, no gross focal deficits. CN2-12 grossly intact. PSYCHIATRIC: alert cooperative and oriented to person, place and time. Results & Data Results & Data ([facility]) Vital Signs (Past 12 Hours) Vital Signs Temp Pulse Resp BP Pulse Ox 04/22/21 08:10 61 18 92 04/22/21 08:08 36.7 C 60 125/51 L 92 04/22/21 08:00 59 L 125/55 L 04/22/21 07:08 36.7 C 58 L 132/51 L 92 04/22/21 06:08 36.7 C 59 L 129/51 L 91 04/22/21 05:08 36.7 C 61 141/59 H 91 04/22/21 04:08 36.8 C 60 137/58 L 92 04/22/21 03:31 61 22 91 04/22/21 03:08 37.0 C 65 118/56 L 90 04/22/21 02:08 37.2 C 62 131/59 L 92 04/22/21 01:08 37.2 C 67 115/53 L 92 04/22/21 00:08 37.0 C 68 118/54 L 93 04/22/21 00:00 62 131/59 L 04/21/21 23:38 36.8 C 68 146/62 H 93 04/21/21 23:19 36.5 C 64 173/63 H 95 04/21/21 23:00 36.3 C L 70 91 04/21/21 22:58 69 22 91 04/21/21 22:48 36.2 C L 89/51 L 92 Laboratory Results Short CBC 04/22/21 Range/Units 04:36 WBC 20.06 H (4.8-10.8) K/uL Hgb 15.8 (14.0-18.0) g/dL Hct 45.7 (42-52) % Plt Count 523 H (130-400) K/uL BMP 04/22/21 04:36 Sodium 141 Potassium 4.0 Chloride 108 H Carbon Dioxide 27 BUN 48 H Creatinine 1.56 H Glucose 117 H Calcium 8.8 Medications Administered Current Inpatient Medications Acetaminophen (Acetaminophen 325 Mg Tab) 325 mg PO Q6H PRN PRN Reason: Mild Pain Stop: 05/16/21 23:48 Albuterol (Albuterol Hfa 8 Gm Inhaler) 2 puffs INH QIDR PRN PRN Reason: Shortness Of Breath Or Wheezin Stop: 05/17/21 06:59 Ascorbic Acid (Ascorbic Acid 500 Mg Tab) 500 mg PO BID [facility] Stop: 05/18/21 20:59 Last Admin: 04/22/21 07:30 Dose: 500 mg Documented by: Carvedilol (Carvedilol 6.25 Mg Tab) 6.25 mg PO BID [facility] Stop: 05/17/21 20:59 Last Admin: 04/22/21 07:29 Dose: Not Given Documented by: Enoxaparin Sodium (Enoxaparin Inj 40 Mg/0.4 Ml Syr) 40 mg SQ QAM [facility] Stop: 05/19/21 08:59 Last Admin: 04/22/21 07:30 Dose: 40 mg Documented by: Epoprostenol Sodium (Epoprostenol Sodium (Glycine) 1.5 Mg/5 Ml) 1.5 mg INH . CONTINUOUS NEB PRN; Protocol PRN Reason: CONTINUOUS NEB TITRATION Stop: 05/20/21 16:38 Last Admin: 04/21/21 01:55 Dose: 1.5 mg Documented by: Fentanyl Citrate (Fentanyl Bolus From Bag) 50 mcg IV Q60M PRN PRN Reason: Pain or Agitation Stop: 05/04/21 18:00 Guaifenesin (Guaifenesin 600 Mg Tabcr) 600 mg PO BID@0800,2000 [facility] Stop: 05/17/21 00:00 Last Admin: 04/22/21 07:08 Dose: Not Given Documented by: Furosemide 40 mg/ Syringe 4 mls @ 4 mls/min IV DAILY [facility] Stop: 05/19/21 08:59 Last Admin: 04/21/21 08:13 Dose: 4 mls/min Documented by: Dexamethasone 10 mg/ Syringe 2.5 mls @ 1 mls/min IV Q24H [facility] Stop: 05/20/21 16:59 Last Admin: 04/21/21 16:09 Dose: 1 mls/min Documented by: Cisatracurium Besylate 40 mg/ (Sodium Chloride) 100 mls @ 26.25 mls/hr IV .Q3H49M [facility]; Protocol Stop: 05/20/21 18:14 Last Titration: 04/22/21 06:53 Dose: 2 mcg/kg/min, 26.3 mls/hr Documented by: Propofol (Diprivan) 1,000 mg in 100 mls @ 18.375 mls/hr IV .Q5H27M [facility]; Protocol Stop: 04/23/21 18:14 Last Admin: 04/22/21 07:57 Dose: 35 mcg/kg/min, 18.4 mls/hr Documented by: Fentanyl Citrate (Fentanyl Drip) 1,250 mcg in 250 mls @ 20 mls/hr IV .[id number] [facility]; Protocol Stop: 05/04/21 18:14 Last Admin: 04/22/21 07:28 Dose: 100 mcg/hr, 20 mls/hr Documented by: Norepinephrine Bitartrate (Levophed/D5w) 8 mg in 508 mls @ 3.334 mls/hr IV .Q24H [facility]; Protocol Stop: 05/20/21 19:14 Last Titration: 04/22/21 09:22 Dose: 0.01 mcg/kg/min, 3.3 mls/hr Documented by: Insulin Human Regular 250 (units/ Sodium Chloride) 250 mls @ 0 mls/hr IV .Q0M [facility]; Protocol Stop: 05/20/21 23:14 Last Titration: 04/22/21 08:00 Dose: 0 units/hr, 0 mls/hr Documented by: Pantoprazole Sodium 40 mg/ (Syringe) 10 mls @ 5 mls/min IV DAILY@1100 [facility] Stop: 05/21/21 10:59 Last Admin: 04/21/21 11:44 Dose: 5 mls/min Documented by: Insulin Aspart (Insulin Aspart 100 Units/Ml 3 Ml Pen) 0 units SC Q4 [facility] Stop: 05/22/21 09:59 Miscellaneous (Icu Protocol For Hyperglycemia) 1 ea N/A QAM [facility] Stop: 04/23/21 08:59 Last Admin: 04/22/21 08:45 Dose: 1 ea Documented by: Miscellaneous Information (Pharmacy Glycemic Mgmt Consult) 1 ea N/A UD PRN PRN Reason: Consult Stop: 05/20/21 23:09 Multi-Ingredient Cream (Artificial Tears Op Oint 3.5 Gm Tube) 1 appln OP Q4H [facility] Stop: 05/20/21 18:44 Last Admin: 04/22/21 05:18 Dose: 1 appln Documented by: Propofol (Propofol Bolus From Bag) 20 mg IV Q5M PRN PRN Reason: Sedation Stop: 04/23/21 18:00 Tramadol HCl (Tramadol Hcl 50 Mg Tablet) 25 mg PO Q4H PRN PRN Reason: Pain Stop: 05/16/21 23:48 Vitamin D (Cholecalciferol 1,000 Units 25 Mcg Tab) 1,000 units PO [facility] Stop: 05/19/21 08:59 Last Admin: 04/22/21 07:30 Dose: 1,000 units Documented by: Zinc Sulfate (Zinc Sulfate 220 Mg Capsule) [facility] [place] Stop: 05/19/21 08:59 Last Admin: 04/22/21 07:30 Dose: 220 mg Documented by:
[2021-04-22] MEDS: FUROSEMIDE 40 MG in SYRINGE 0 ML IV SCH (10:59)
[2021-04-22] MEDS: PANTOprazole 40 MG in SYRINGE 0 ML IV SCH (10:59)
[2021-04-22] MEDS: dexAMETHasone 10 MG in SYRINGE 0 ML IV SCH (16:47)
[2021-04-23] MEDS: propofoL 1,000 MG/100 ML VIAL IV SCH ×8 (00:17→21:15)
[2021-04-23] MEDS: INSULIN ASPART 100 UNITS/ML 3 ML PEN SC SCH ×7 (00:19→23:54)
[2021-04-23] MEDS: ARTIFICIAL TEARS OP OINT 3.5 GM TUBE OP SCH ×2 (03:59→07:42)
[2021-04-23 04:58] LABS: iSTAT Allen Test Pass; iSTAT Art Bld Gas pCO2 Correct 38 mmHg (35-46); iSTAT Arterial Blood Gas HCO3 27 meg/L (19-24); iSTAT Arterial Blood Gas pCO2 38 mmHg (35-46); iSTAT Arterial Blood Gas pH 7.46 (7.35-7.45); iSTAT Arterial Blood Gas pO2 66 mmHg (80-95); iSTAT Arterial Blood Gas pO2 C 66; iSTAT Carbon Dioxide 28 mmol/L (24-31); iSTAT FiO2 30 %; iSTAT Hematocrit 41 % (42-52); iSTAT Hemoglobin 13.9 g/dl (14.0-18.0); iSTAT Potassium 4.4 mmol/L (3.3-5.0); iSTAT Site Art Line; iSTAT Sodium 141 mmol/L (135-144)
[2021-04-23 06:10] LABS: Hematocrit (blood only) 33.3 % (42-52); Hemoglobin 10.8 g/dL (14.0-18.0); Mean Corpuscular Hemoglobin 27.9 pg (25-34); Mean Corpuscular Hgb Conc 32.4 g/dL (32-36); Mean Platelet Volume 9.8 fL (7.4-10.4); Platelet Count 292 K/uL (130-400); RDW Coefficient of Variation 13.5 % (11.5-14.5); Red Blood Count 3.87 M/uL (4.7-6.1); White Blood Count 9.71 K/uL (4.8-10.8)
[2021-04-23 06:20] LABS: Basophils # (auto) 0.01 K/uL (0-0.2); Basophils % (auto) 0.1 %; Immature Granulocytes # (auto) 0.13 K/uL (0.00-0.02); Immature Granulocytes % (auto) 1.3 %; Lymphocytes # (auto) 0.32 K/uL (1.2-3.4); Lymphocytes % (auto) 3.3 %; Monocytes # (auto) 0.72 K/uL (0.11-0.59); Monocytes % (auto) 7.4 %; Neutrophils # (auto) 8.53 K/uL (1.4-6.5); Neutrophils % (auto) 87.9 %
[2021-04-23 06:21] LABS: BUN Creatinine Ratio 33.8 (10-20); Creatinine Clr Calc Pharmacy 56.6 ml/min; Est GFR (African American) 59.7 ml/min; Est GFR (Non-African American) 51.5 ml/min; Magnesium 2.1 mg/dl (1.8-2.4); Phosphorus 3.3 mg/dl (2.5-4.9)
[2021-04-23 06:23] LABS: Calcium 5.8 mg/dl (8.5-10.1)
[2021-04-23] MEDS ORDERED: CALCIUM GLUCONATE 10% 3,000 MG in 0.9 % SODIUM CHLORIDE 100 ML IV ONE (06:56)
[2021-04-23] MEDS: CISATRACURIUM BESYLATE 40 MG in 0.9 % SODIUM CHLORIDE 80 ML IV SCH ×2 (07:22→07:23)
[2021-04-23] MEDS: NOREPINEPHRINE/D5W 8 MG/508 ML BAG IV SCH (07:23)
[2021-04-23] MEDS: INSULIN REGULAR 250 UNITS in SODIUM CHLORIDE 0.9% 247.5 ML IV SCH (07:26)
--- NOTE | 2021-04-23 07:28 | XRay Report ---
XR chest 1V portable HISTORY: 60 years-old Male f/u acute respiratory failure COMPARISON: Chest radiograph 04/21/2021 TECHNIQUE: Portable AP view of the chest FINDINGS: Endotracheal tube overlies the midline, 2.9 cm superior to the kalin. Left IJ central venous cathete r is unchanged with distal tip within the distribution of the brachiocephalic SVC confluence. No pneu mothorax. Trace layering pleural effusions with bilateral mixed interstitial and alveolar opacities, stable from comparison. There is no pneumothorax. The bones appear grossly intact. Enteric tube cours es below the diaphragm with distal tip outside the [id number]. IMPRESSION: 1. Lines and tubes as above. 2. Trace pleural effusions with unchanged bilateral pulmonary opacities suggestive of multifocal pneu monia. ACT 112: Negative or not required by law. The above report was generated using voice recognition software. It may contain grammatical, syntax o r spelling errors. Electronically signed by: Travis Rodriguez M.D. 04/23/2021 7:27 AM
[2021-04-23] MEDS: guaiFENesin 600 MG TABCR PO SCH (07:42)
[2021-04-23] MEDS: POTASSIUM CHLORIDE / WTR 20 MEQ/100 ML PLCT IV SCH ×4 (07:42→13:49)
[2021-04-23] MEDS: ASCORBIC ACID 500 MG TAB PO SCH ×2 (07:43→20:08)
[2021-04-23] MEDS: carvediloL 6.25 MG TAB PO SCH ×2 (07:43→20:08)
[2021-04-23] MEDS: ZINC SULFATE 220 MG CAPSULE PO SCH (07:44)
[2021-04-23] MEDS: CHOLECALCIFEROL 1,000 UNITS 25 MCG TAB PO SCH (07:44)
[2021-04-23] MEDS: ENOXAPARIN INJ 40 MG/0.4 ML SYR SQ SCH (07:44)
[2021-04-23] MEDS: FUROSEMIDE 40 MG in SYRINGE 0 ML IV SCH (07:45)
[2021-04-23] MEDS ORDERED: INSULIN GLARGINE SOLOSTAR 100 UNITS/ML 3 ML PEN SC ONE ×2 (09:00→21:00)
--- NOTE | 2021-04-23 09:28 | Palliative Care Consultation ---
Date of Consultation April 23, 2021 Assessment & Plan (1) Palliative care encounter: Mr. Prado presented to the [facility] on April 16 with a persistent dry cough that had failed an outpatient steroid trial. He came into the hospital, was diagnosed with COVID -19 pneumonia and was intubated on April 20 and is receiving proning therapy and is currently sedated with Propofol and Fentanyl. He currently is on A/C FiO2 0.40, PEEP 5. He is not requiring any vasoactive support at this time. He is able to open his eyes and interact; however, as of this morning, he stopped having the ability to move his left side. A head CT was performed and results indicated Focal area of decreased attenuation within the right temporal lobe and kishan likely representing lacunar infarct. An MRI has been ordered and is pending. 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 Palliative Medicine was consulted to discuss overall goals of care. I was able to talk with his , Ya Cedillo at [phone]. She stated that she and her Wilbert have never discussed wishes and what he would want done in certain scenarios. 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 They have been since 2007. We discussed CPR and code status and for now, remain a full code. I discussed the head CT and also advised her that he would be having an MRI. We discussed that we would follow up after the results to have a better idea about how this could affect him halfway. Advised that Neurology will likely evaluate him at some point also. For now, palliative medicine will follow. (2) Pneumonia due to COVID-19 virus: (3) Hypoxia: (4) Weakness: History of Present Illness Reason for Consultation: Goals of care Requesting Physician: Dr. Gutierrez Attending Physician: Eneida Gutierrez, History of Present Illness Mr. Prado presented to the [facility] on April 16 with a persistent dry cough that had failed an outpatient steroid trial. He came into the hospital, was diagnosed with COVID -19 pneumonia and was intubated on April 20 and is receiving proning therapy and is currently sedated with Propofol and Fentanyl. He currently is on A/C FiO2 0.40, PEEP 5. He is not requiring any vasoactive support at this time. He is able to open his eyes and interact; however, as of this morning, he stopped having the ability to move his left side. A head CT was performed and results indicated Focal area of decreased attenuation within the right temporal lobe and kishan likely representing lacunar infarct. An MRI has been ordered and is pending. 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 Palliative Medicine was consulted to discuss overall goals of care. Please see A/P for further details. Thanks for involving Palliative Medicine with this individual. Allergies Allergy/AdvReac Type Severity Reaction Status Date / Time aspirin AdvReac Mild NOSE BLEEDS Verified 04/16/21 19:23 Penicillins AdvReac Mild "MAKES ME Verified 04/16/21 19:23 SICK." Home Medications Medication Instructions Recorded Confirmed Type uduqopgr-xqeoexli-ehedf acid 400 1 tab PO QAM 03/23/19 04/16/21 History mcg-vit K 20 mcg-lycop 300 mcg tablet (Men's One Daily) carvedilol 6.25 mg tablet (Coreg) 6.25 mg PO BID 08/27/19 04/16/21 History prednisone 20 mg tablet See Rx Instructions .ROUTE .COMPLEX 04/16/21 04/16/21 History Patient History Medical History (Updated 04/23/21 @ 09:26 by DENEEN Browning) Chronic kidney disease PATIENT DENIES Hydronephrosis of left kidney Hypertension Hypoxia Palliative care encounter Pneumonia due to COVID-19 virus Thyroid nodule JUST WATCHING Weakness Surgical History History of abdominal surgery H/O left renal surgery> [facility] > OVER 10 YRS AGO History of appendectomy History of cholecystectomy Hx of neck surgery C4,5 6> REMOVED MASS FROM SPINAL CORD > ABIMBOLA DANNICOLE > APR 2019> DIFFICULTY TURNING HEAD TO LEFT SIDE Family History Father Cancer Social History Smoking Status: Never smoker Second Hand Exposure: No; Do You Dip or Chew Tobacco: No; Tobacco Cessation Education Requested by Patient: No Hx Alcohol Use: No Hx Substance Use: No Preferred Language: Tajik Communication Ability: Effective Bulk Mail Clerk Required: No Beliefs That Will Affect Care: None marital status: Current Living Situation: Family Current Living Situation Comment: [id number] lives with patient also current occupational status: employed 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 Other Information That Helps Us Care for You: No Feels Safe at Home: Yes Safety Concerns: Feels Safe At This Time Assistive Devices: Oxygen - Continuous Review of Systems Review of Systems: [place] System Assessment Scale: Pain AD: 1 SOB AD: 1 Anxiety by OBS: 0/3 Physical Exam Constitutional: + ill appearing, + frail appearing and + mechanically ventilated Respiratory: normal respiratory effort Auscultation: + diminished lung sounds Cardiovascular: Rate/Rhythm: regular rate and regular rhythm Heart Sounds: normal S1 and normal S2 Extremities: normal capillary refill Gastrointestinal (Abdomen): Inspection/Auscultation: abdomen normal to inspection Skin: + pallor Psychiatric: Orientation: alert Results & Data ([facility]) Vital Signs (Past 12 Hours) Vital Signs Temp Pulse Resp BP Pulse Ox 04/23/21 08:08 37.2 C 69 113/57 L 89 L 04/23/21 08:00 67 04/23/21 07:42 66 16 91 04/23/21 07:08 37.2 C 68 108/54 L 90 04/23/21 06:08 37.2 C 66 104/50 L 90 04/23/21 05:08 37.1 C 66 104/50 L 90 04/23/21 04:08 37.1 C 67 108/51 L 90 04/23/21 03:30 66 16 91 04/23/21 03:08 37.2 C 67 101/50 L 91 04/23/21 02:08 37.2 C 66 101/49 L 91 04/23/21 01:09 37.2 C 68 102/48 L 90 04/23/21 00:09 37.3 C 58 L 154/57 H 93 04/22/21 23:52 64 16 90 04/22/21 23:08 37.3 C 65 95/41 L 90 04/22/21 22:08 37.2 C 65 93/40 L 90 PG Care Time/CCT Total # of Minutes Spent Total Time Spent with Patient: Total time spent is greater than 50% in coordination of care (as documented) at patient's floor/unit and/or counseling patient: 70 minutes with > 50% of that time spent assessing the patient, discussing goals of care with the family and collaborating with IDT Coding Level of Care Code 32249 Inpt Consult Level 3 Diagnoses Palliative care encounter Z51.5 Pneumonia due to COVID-19 virus U07.1; J12.82 Hypoxia R09.02 Weakness R53.1 Time Spent (min) 70
--- NOTE | 2021-04-23 09:31 | CT Scan Report ---
CT head/brain wo con CLINICAL HISTORY: Hemiparesis COMPARISON STUDY: No previous studies for comparison. TECHNIQUE: Axial CT of the brain is performed from the vertex to the skull base. IV contrast was not administered for this examination. A dose lowering technique was utilized adhering to the principles of ALARA. CT DOSE: 669.45 mGycm FINDINGS: No intra or extra-axial mass lesions are visualized. There is no CT evidence of acute cortical infarc tion. There is no evidence of midline shift. There is no acute hemorrhage. There is focal area of decreased attenuation is seen within the right temporal lobe, posteriorly to t he occipital horn of the right lateral ventricle (2/) and could represent old lacunar infarct. Also focal hypoattenuating lesion is seen within kishan which might also represent sequela from prior i nsult. No acute depressed calvarial fractures are visualized. Well-defined 1.8 cm oval exophytic sclerotic lesion projecting from outer table of the left occipital bone most likely represent benign osteoma. There are patchy white matter hypodensities likely on a small vessel basis. There is no evidence of pathologic ventricular dilatation. Partial opacification of bilateral ethmoid air cells is seen. Mucosal thickening is seen within bilat eral maxillary sinuses, right more than left. Air-fluid level is seen within left sphenoid sinus. Com plete opacification of the left and partial opacification of the right mastoid air cells. IMPRESSION: 1. No acute intracranial hemorrhage, no midline shift or space occupying lesions. 2. Focal area of decreased attenuation within the right temporal lobe and kishan likely representing l acunar infarcts. 3. Chronic small vessel ischemia. 4. Fluid signal is seen within paranasal sinuses and bilateral mastoid air cells, might represent in flammatory process/sinusitis in appropriate clinical settings. 5. The rest of findings as above. ACT 112: Negative or not required by law. The above report was generated using voice recognition software. It may contain grammatical, syntax o r spelling errors. Electronically signed by: Hayde Betancourt DO 04/23/2021 9:29 AM
--- NOTE | 2021-04-23 09:57 | Critical Care Progress Note ---
Date of Service April 23, 2021 Assessment & Plan (1) Pneumonia due to COVID-19 virus: (2) Acute hypoxemic respiratory failure: Plan: 60-year-old male with COVID-19 viral pneumonia. Intubated 04/20/2021 Neuro - [facility] ICU: Negative Paralyzed on Nimbex Continue with propofol and fentanyl's Possible lacunar infarct -MRI to r/o acute/subacute infarct Cardiac - Hypotensive: Resolved Respiratory - --VDRF secondary to acute hypoxic respiratory failure Secondary to multilobar COVID-19 pneumonia Complete the course of remdesivir and dexamethasone COVID-19 PCR positive CRP 8.5 --> 1.7 --> 7.09 --> 6.03 Procalcitonin 0.15 Continue with lung protective ventilation High PEEP, low tidal volume to keep Plateau < 30 with permissive hypercapnea if need be. GI - Trophic feeds RENAL/LYTES - --CKD Monitor BUNs/creatinine Avoid nephrotoxic medication ENDO - Continue with ICU hyperglycemia protocol HEME - Leukocytosis likely from steroids Monitor H&H ID - COVID-19 management as above --Prophylaxis VTE: Lovenox GI: Protonix Lines: Left IJ 04/21/20, right radial, positive Nguyễn Diet: Trophic feeds Admission and Anticipated Discharge Date Admission Date: April 16, 2021 Supervising Physician Co-Signing Physician Notes I have personally spent 45 minutes of critical care time in the direct management of this patient. This is a life/limb threatening event. This includes time spent evaluating patient, direct bedside care, chart review, placing orders, interpretation of diagnostic studies, discussion with consultants, patient, and family members, as well as other required patient management activities. This time is exclusive of all separately billable procedures, and teaching time and separate from and in addition to any other critical care service time. Subjective Not moving left side will obtain CT head Results & Data Results & Data ([facility]) Vital Signs (Past 12 Hours) Vital Signs Temp Pulse Resp BP Pulse Ox 04/23/21 08:08 37.2 C 69 113/57 L 89 L 04/23/21 08:00 67 04/23/21 07:42 66 16 91 04/23/21 07:08 37.2 C 68 108/54 L 90 04/23/21 06:08 37.2 C 66 104/50 L 90 04/23/21 05:08 37.1 C 66 104/50 L 90 04/23/21 04:08 37.1 C 67 108/51 L 90 04/23/21 03:30 66 16 91 04/23/21 03:08 37.2 C 67 101/50 L 91 04/23/21 02:08 37.2 C 66 101/49 L 91 04/23/21 01:09 37.2 C 68 102/48 L 90 04/23/21 00:09 37.3 C 58 L 154/57 H 93 04/22/21 23:52 64 16 90 04/22/21 23:08 37.3 C 65 95/41 L 90 04/22/21 22:08 37.2 C 65 93/40 L 90 Laboratory Results 04/23/21 04/23/21 04/23/21 Range/Units 07:52 04:50 04:50 WBC 9.71 (4.8-10.8) K/uL RBC 3.87 L (4.7-6.1) M/uL Hgb 10.8 L D (14.0-18.0) g/dL POC Hgb (14.0-18.0) g/dl Hct 33.3 L (42-52) % POC Hct (42-52) % MCV 86.0 (80-100) fL MCH 27.9 (25-34) pg MCHC 32.4 (32-36) g/dL RDW Std Deviation 42.0 (36.4-46.3) fL RDW Coeff of Kalani 13.5 (11.5-14.5) % Plt Count 292 (130-400) K/uL MPV 9.8 (7.4-10.4) fL Immature Gran % (Auto) 1.3 % Neut % (Auto) 87.9 % Lymph % (Auto) 3.3 % [place] % (Auto) 7.4 % Eos % (Auto) 0.0 % Baso % (Auto) 0.1 % Neut # (Auto) 8.53 H (1.4-6.5) K/uL Lymph # (Auto) 0.32 L (1.2-3.4) K/uL [place] # (Auto) 0.72 H (0.11-0.59) K/uL Eos # (Auto) 0.00 (0-0.5) K/uL Baso # (Auto) 0.01 (0-0.2) K/uL Immature Gran # (Auto) 0.13 H (0.00-0.02) K/uL Sample Site POC pH (7.35-7.45) POC pCO2 (35-46) mmHg POC pO2 (80-95) mmHg POC HCO3 (19-24) [place]/L POC Total CO2 (24-31) mmol/L POC Base Excess (-9-1.8) [place]/L ABG pH (Temp Correct) (7.35-7.45) ABG pCO2 (Temp Corrct (35-46) mmHg POC ABG pO2 at Pt Temp POC ABG O2 Sat (90-95) % Jose Alejandro Test O2 Delivery Device POC O2 Rate Minute Ventilation POC FiO2 % Tidal Volume PEEP POC Sodium (135-144) mmol/L Sodium 146 H (136-145) mmol/L POC Potassium (3.3-5.0) mmol/L Potassium 3.0 L D (3.5-5.1) mmol/L Chloride 121 H (98-107) mmol/L Carbon Dioxide 22 (21-32) mmol/L Anion Gap 3.0 (3-11) BUN 49 H (7-18) mg/dl Creatinine 1.46 H (0.6-1.4) mg/dl Est Cr Clr Drug Dosing 56.6 ml/min Est GFR ( Amer) 59.7 ml/min Est GFR (Non-Af Amer) 51.5 ml/min BUN/Creatinine Ratio 33.8 H (10-20) Glucose 131 H (70-99) mg/dl POC Glucose 168 H (70-99) mg/dl POC Glucose (other) (70-99) mg/dl Calcium 5.8 L* D (8.5-10.1) mg/dl Phosphorus 3.3 (2.5-4.9) mg/dl Magnesium 2.1 (1.8-2.4) mg/dl 04/23/21 04/23/21 04/22/21 Range/Units 04:44 03:33 23:57 WBC (4.8-10.8) K/uL RBC (4.7-6.1) M/uL Hgb (14.0-18.0) g/dL POC Hgb 13.9 L (14.0-18.0) g/dl Hct (42-52) % POC Hct 41 L (42-52) % MCV (80-100) fL MCH (25-34) pg MCHC (32-36) g/dL RDW Std Deviation (36.4-46.3) fL RDW Coeff of Kalani (11.5-14.5) % Plt Count (130-400) K/uL MPV (7.4-10.4) fL Immature Gran % (Auto) % Neut % (Auto) % Lymph % (Auto) % [place] % (Auto) % Eos % (Auto) % Baso % (Auto) % Neut # (Auto) (1.4-6.5) K/uL Lymph # (Auto) (1.2-3.4) K/uL [place] # (Auto) (0.11-0.59) K/uL Eos # (Auto) (0-0.5) K/uL Baso # (Auto) (0-0.2) K/uL Immature Gran # (Auto) (0.00-0.02) K/uL Sample Site Art Line POC pH 7.46 H (7.35-7.45) POC pCO2 38 (35-46) mmHg POC pO2 66 L (80-95) mmHg POC HCO3 27 H (19-24) [place]/L POC Total CO2 28 (24-31) mmol/L POC Base Excess 3.0 H (-9-1.8) [place]/L ABG pH (Temp Correct) 7.460 H (7.35-7.45) ABG pCO2 (Temp Corrct 38 (35-46) mmHg POC ABG pO2 at Pt Temp 66 POC ABG O2 Sat 94.0 (90-95) % Jose Alejandro Test Pass O2 Delivery Device Ventilator POC O2 Rate 16 Minute Ventilation 6.9 POC FiO2 30 % Tidal Volume 430 PEEP 5 POC Sodium 141 (135-144) mmol/L Sodium (136-145) mmol/L POC Potassium 4.4 (3.3-5.0) mmol/L Potassium (3.5-5.1) mmol/L Chloride (98-107) mmol/L Carbon Dioxide (21-32) mmol/L Anion Gap (3-11) BUN (7-18) mg/dl Creatinine (0.6-1.4) mg/dl Est Cr Clr Drug Dosing ml/min Est GFR ( Amer) ml/min Est GFR (Non-Af Amer) ml/min BUN/Creatinine Ratio (10-20) Glucose (70-99) mg/dl POC Glucose 155 H (70-99) mg/dl POC Glucose (other) 179 H (70-99) mg/dl Calcium (8.5-10.1) mg/dl Phosphorus (2.5-4.9) mg/dl Magnesium (1.8-2.4) mg/dl 04/22/21 04/22/21 04/22/21 Range/Units 19:53 16:26 11:40 WBC (4.8-10.8) K/uL RBC (4.7-6.1) M/uL Hgb (14.0-18.0) g/dL POC Hgb (14.0-18.0) g/dl Hct (42-52) % POC Hct (42-52) % MCV (80-100) fL MCH (25-34) pg MCHC (32-36) g/dL RDW Std Deviation (36.4-46.3) fL RDW Coeff of Kalani (11.5-14.5) % Plt Count (130-400) K/uL MPV (7.4-10.4) fL Immature Gran % (Auto) % Neut % (Auto) % Lymph % (Auto) % [place] % (Auto) % Eos % (Auto) % Baso % (Auto) % Neut # (Auto) (1.4-6.5) K/uL Lymph # (Auto) (1.2-3.4) K/uL [place] # (Auto) (0.11-0.59) K/uL Eos # (Auto) (0-0.5) K/uL Baso # (Auto) (0-0.2) K/uL Immature Gran # (Auto) (0.00-0.02) K/uL Sample Site POC pH (7.35-7.45) POC pCO2 (35-46) mmHg POC pO2 (80-95) mmHg POC HCO3 (19-24) [place]/L POC Total CO2 (24-31) mmol/L POC Base Excess (-9-1.8) [place]/L ABG pH (Temp Correct) (7.35-7.45) ABG pCO2 (Temp Corrct (35-46) mmHg POC ABG pO2 at Pt Temp POC ABG O2 Sat (90-95) % Jose Alejandro Test O2 Delivery Device POC O2 Rate Minute Ventilation POC FiO2 % Tidal Volume PEEP POC Sodium (135-144) mmol/L Sodium (136-145) mmol/L POC Potassium (3.3-5.0) mmol/L Potassium (3.5-5.1) mmol/L Chloride (98-107) mmol/L Carbon Dioxide (21-32) mmol/L Anion Gap (3-11) BUN (7-18) mg/dl Creatinine (0.6-1.4) mg/dl Est Cr Clr Drug Dosing ml/min Est GFR ( Amer) ml/min Est GFR (Non-Af Amer) ml/min BUN/Creatinine Ratio (10-20) Glucose (70-99) mg/dl POC Glucose 150 H 155 H (70-99) mg/dl POC Glucose (other) 163 H (70-99) mg/dl Calcium (8.5-10.1) mg/dl Phosphorus (2.5-4.9) mg/dl Magnesium (1.8-2.4) mg/dl Coding Level of Care Code Critical Care 1st 30-74 mins Diagnoses Pneumonia due to COVID-19 virus U07.1; J12.82 Acute hypoxemic respiratory failure J96.01
--- NOTE | 2021-04-23 10:53 | Pharmacy Report ---
Pharmacy Glycemic Short Note 2 - Date of Service April 23, 2021 - Glycemic Short BSG Results (Last 24 hours): 04/22/21 04/22/21 04/22/21 11:40 16:26 19:53 Glucose POC Glucose 155 H 150 H POC Glucose (other) 163 H 04/22/21 04/23/21 04/23/21 23:57 03:33 04:50 Glucose 131 H POC Glucose 155 H POC Glucose (other) 179 H 04/23/21 07:52 Glucose POC Glucose 168 H POC Glucose (other) OUTPATIENT ANTIDIABETIC REGIMEN: * n/a * A1c = 6.6% on 04/21/21 ASSESSMENT: 04/23 * Patient was successfully transitioned off insulin drip yesterday * Fasting BSG at goal this AM following receipt of 50 units Lantus yesterday, and has received 6 units correctional insulin since drip d/c'd * Patient remians intubed and NPO at this time. Will give a reduced dose of Lantus today due to ongoing NPO status and depletion of glycogen stores * Dex 10mg IV daily continues 04/22 * IV insulin infusion stable at 2.6 units/hr since 04/21 @ 1430. Will transition from IV insulin to SQ basal bolus insulin regimen per transition protocol * Calculated TDD = 62 units/day. Will give 80% of this for conversion of IV to SQ. NovoLog Q4hrs per scale if additional insulin needed * Pt remains NPO, on mechanical ventilation, paralyzed, prone positioning. SQ insulin requested to minimize BSG checks and RN exposure 04/21 * 60yo male -with presumed pre-diabetes per A1c, however patient was on a recent prednisone taper 04/06 therefore this may be falsely elevated. * Pt initiated on IV insulin infusion per ICU hyperglycemia protocol. * Auto pharmacy consult per protocol. * Will continue with IV insulin infusion as it is the standard of care in ICU. Pt is sedated and on mechanical ventilation. Will initiate transition to SQ basal bolus insulin regimen with patient meets criteria for transition. A nticipating basal bolus with NPH + NovoLog for steroid induced hyperglycemia secondary to daily dexamethasone for COVID-19. PLAN FOR INPATIENT GLYCEMIC CONTROL: * Basal insulin * Lantus 37 units SQ x 1 dose, will give a scaled dose this PM based upon BS units if BSG less than 140; 8 units if BSG 140-180; 12 units if BSG above 180 * NovoLog Q4hrs * Goal range: 110-140 mg/dl * CF = 20mg/dl/unit * CR = 1 unit for every 6 grams CHO consumed (when diet started)
[2021-04-23] MEDS: PANTOprazole 40 MG in SYRINGE 0 ML IV SCH (11:37)
[2021-04-23] MEDS: fentaNYL DRIP 1,250 MCG/250 ML BAG IV SCH ×2 (11:41→23:04)
--- NOTE | 2021-04-23 13:09 | Hospitalist Progress Note ---
Date of Service April 23, 2021 Assessment & Plan (1) Acute hypoxemic respiratory failure: Plan: Failed outpatient prednisone course. Remained on hi flow to BIPAP for several days as he was a DNR. Changed his mind and was intubated on 04/20, required paralytic/pressor support. Remains in ICU on mechanically ventilated. (2) Pneumonia due to COVID-19 virus: Plan: Completed 5-day course of remdesivir Continues on dexamethasone daily at 10 mg. Continues on furosemide 40 mg daily for goal net negative overall Mechanical ventilation per pulmonology Continue to prone per ICU team Wean vent as tolerated. (3) Acute renal failure: Plan: Around baseline, cont to monitor daily BMP While on daily Lasix therapy. Will accept a slightly decreased kidney function if it helps him breathe better. (4) Elevated troponin: Plan: Likely demand ischemia, ACS less likely, patient denies any chest pain and there was no escalation of serial trop trend. Echocardiogram deferred secondary to Covid positive status (5) HTN (hypertension): Plan: at goal, cont coreg and lasix therapy, trend BMP daily (6) Transaminitis: Plan: Mild transaminitis, likely secondary to Covid illness. (7) DVT prophylaxis: Plan: Lovenox Full code Dispo-Continue ICU monitoring and care Eneida Gutierrez DO [facility] Hospitalist Admission and Anticipated Discharge Date Admission Date: April 16, 2021 Subjective 60-year-old man with acute respiratory failure secondary to Covid pneumonia, was originally a DNR, subsequently intubated on 04/20. Off paralytic today. At the current time he is supine Off Levophed and Nimbex He is sedated on fentanyl and Versed. Oxygenating well on mechanical ventilation Review of Systems Review of Systems: ROS unattainable as he is intubated and sedated Physical Exam Physical Exam: CONSTITUTIONAL: WNWD, vitals as above, ill-appearing, intubated and sedated EYES: normal conjunctivae, no scleral icterus ENT: external ear and nose normal, MMM NECK: trachea midline RESPIRATORY: Lungs are clear to auscultation throughout, no rales or wheezes, mechanically vented CARDIOVASCULAR: regular rate and rhythm, S1 and 2 heard without murmurs, gallops or rubs, no JVD, no peripheral edema GASTROINTESTINAL: soft, nontender, nondistended, no guarding MUSCULOSKELETAL: strength 5/5 throughout, head is normocephalic and atraumatic SKIN: warm and dry NEUROLOGIC: no sensory deficit, normal cognition, normal speech, no tremor, no gross focal deficits. CN2-12 grossly intact. PSYCHIATRIC: alert cooperative and oriented to person, place and time. Results & Data Results & Data ([facility]) Vital Signs (Past 12 Hours) Vital Signs Temp Pulse Resp BP Pulse Ox 04/23/21 12:00 77 04/23/21 10:00 66 04/23/21 09:30 83 135/51 L 88 L 04/23/21 09:29 85 85 L 04/23/21 08:08 37.2 C 69 113/57 L 89 L 04/23/21 08:00 67 04/23/21 07:42 66 16 91 04/23/21 07:08 37.2 C 68 108/54 L 90 04/23/21 06:08 37.2 C 66 104/50 L 90 04/23/21 05:08 37.1 C 66 104/50 L 90 04/23/21 04:08 37.1 C 67 108/51 L 90 04/23/21 03:30 66 16 91 04/23/21 03:08 37.2 C 67 101/50 L 91 04/23/21 02:08 37.2 C 66 101/49 L 91 04/23/21 01:09 37.2 C 68 102/48 L 90 Laboratory Results Short CBC 04/23/21 Range/Units 04:50 WBC 9.71 (4.8-10.8) K/uL Hgb 10.8 L D (14.0-18.0) g/dL Hct 33.3 L (42-52) % Plt Count 292 (130-400) K/uL BMP 04/23/21 04:50 Sodium 146 H Potassium 3.0 L D Chloride 121 H Carbon Dioxide 22 BUN 49 H Creatinine 1.46 H Glucose 131 H Calcium 5.8 L* D Medications Administered Current Inpatient Medications Acetaminophen (Acetaminophen 325 Mg Tab) 325 mg PO Q6H PRN PRN Reason: Mild Pain Stop: 05/16/21 23:48 Albuterol (Albuterol Hfa 8 Gm Inhaler) 2 puffs INH QIDR PRN PRN Reason: Shortness Of Breath Or Wheezin Stop: 05/17/21 06:59 Ascorbic Acid (Ascorbic Acid 500 Mg Tab) 500 mg PO BID [facility] Stop: 05/18/21 20:59 Last Admin: 04/23/21 07:43 Dose: 500 mg Documented by: Carvedilol (Carvedilol 6.25 Mg Tab) 6.25 mg PO BID [facility] Stop: 05/17/21 20:59 Last Admin: 04/23/21 07:43 Dose: 6.25 mg Documented by: Enoxaparin Sodium (Enoxaparin Inj 40 Mg/0.4 Ml Syr) 40 mg SQ QAM [facility] Stop: 05/19/21 08:59 Last Admin: 04/23/21 07:44 Dose: 40 mg Documented by: Fentanyl Citrate (Fentanyl Bolus From Bag) 50 mcg IV Q60M PRN PRN Reason: Pain or Agitation Stop: 05/04/21 18:00 Furosemide 40 mg/ Syringe 4 mls @ 4 mls/min IV DAILY [facility] Stop: 05/19/21 08:59 Last Admin: 04/23/21 07:45 Dose: 4 mls/min Documented by: Dexamethasone 10 mg/ Syringe 2.5 mls @ 1 mls/min IV Q24H [facility] Stop: 05/20/21 16:59 Last Admin: 04/22/21 16:47 Dose: 1 mls/min Documented by: Propofol (Diprivan) 1,000 mg in 100 mls @ 10.5 mls/hr IV .Q9H32M [facility]; Protocol Stop: 04/26/21 18:14 Last Admin: 04/23/21 11:37 Dose: 20 mcg/kg/min, 10.5 mls/hr Documented by: Fentanyl Citrate (Fentanyl Drip) 1,250 mcg in 250 mls @ 5 mls/hr IV .Q50H [facility]; Protocol Stop: 05/04/21 18:14 Last Admin: 04/23/21 11:41 Dose: Not Given Documented by: Pantoprazole Sodium 40 mg/ (Syringe) 10 mls @ 5 mls/min IV DAILY@1100 [facility] Stop: 05/21/21 10:59 Last Admin: 04/23/21 11:37 Dose: 5 mls/min Documented by: Potassium Chloride (K Gwyn / Wtr) 20 meq in 100 mls @ 50 mls/hr IV Q2H [facility] Stop: 04/23/21 14:59 Last Admin: 04/23/21 11:36 Dose: 50 mls/hr Documented by: Insulin Aspart (Insulin Aspart 100 Units/Ml 3 Ml Pen) 0 units SC Q4 [facility] Stop: 05/22/21 09:59 Last Admin: 04/23/21 12:03 Dose: Not Given Documented by: Insulin Glargine (Insulin Glargine Solostar 100 Units/Ml 3 Ml Pen) 0 units SC HS ONE; Protocol Stop: 04/23/21 21:01 Miscellaneous Information (Pharmacy Glycemic Mgmt Consult) 1 ea N/A UD PRN PRN Reason: Consult Stop: 05/20/21 23:09 Propofol (Propofol Bolus From Bag) 20 mg IV Q5M PRN PRN Reason: Sedation Stop: 04/26/21 18:00 Vitamin D (Cholecalciferol 1,000 Units 25 Mcg Tab) 1,000 [facility] [place] Stop: 05/19/21 08:59 Last Admin: 04/23/21 07:44 Dose: 1,000 units Documented by: Zinc Sulfate (Zinc Sulfate 220 Mg Capsule) 220 mg PO QAM [facility] Stop: 05/19/21 08:59 Last Admin: 04/23/21 07:44 Dose: 220 mg Documented by:
[2021-04-23] MEDS: dexAMETHasone 10 MG in SYRINGE 0 ML IV SCH (13:50)
[2021-04-24] MEDS: propofoL 1,000 MG/100 ML VIAL IV SCH ×4 (04:11→15:26)
[2021-04-24] MEDS: INSULIN ASPART 100 UNITS/ML 3 ML PEN SC SCH ×5 (04:13→20:19)
[2021-04-24 05:14] LABS: iSTAT Arterial Blood Gas HCO3 26 meg/L (19-24); iSTAT Arterial Blood Gas pCO2 39 mmHg (35-46); iSTAT Arterial Blood Gas pH 7.43 (7.35-7.45); iSTAT Arterial Blood Gas pO2 73 mmHg (80-95); iSTAT Carbon Dioxide 27 mmol/L (24-31); iSTAT FiO2 40 %; iSTAT Site Art Line
[2021-04-24 05:42] LABS: Hematocrit (blood only) 47.9 % (42-52); Hemoglobin 15.5 g/dL (14.0-18.0); Mean Corpuscular Hemoglobin 28.7 pg (25-34); Mean Corpuscular Hgb Conc 32.4 g/dL (32-36); Mean Corpuscular Volume 88.5 fL (80-100); Mean Platelet Volume 10.7 fL (7.4-10.4); Platelet Count 427 K/uL (130-400); RDW Coefficient of Variation 13.7 % (11.5-14.5); RDW Standard Deviation 44.4 fL (36.4-46.3); Red Blood Count 5.41 M/uL (4.7-6.1); White Blood Count 14.96 K/uL (4.8-10.8)
[2021-04-24 06:03] LABS: Basophils # (auto) 0.01 K/uL (0-0.2); Basophils % (auto) 0.1 %; Immature Granulocytes # (auto) 0.15 K/uL (0.00-0.02); Lymphocytes # (auto) 1.69 K/uL (1.2-3.4); Lymphocytes % (auto) 11.3 %; Monocytes # (auto) 0.11 K/uL (0.11-0.59); Monocytes % (auto) 0.7 %; Neutrophils % (auto) 86.9 %
[2021-04-24 07:03] LABS: BUN Creatinine Ratio 36.3 (10-20); Calcium 9.1 mg/dl (8.5-10.1); Creatinine Clr Calc Pharmacy 41.3 ml/min; Est GFR (African American) 45.2 ml/min; Magnesium 3.2 mg/dl (1.8-2.4); Phosphorus 3.8 mg/dl (2.5-4.9); Potassium 4.5 mmol/L (3.5-5.1)
--- NOTE | 2021-04-24 07:16 | XRay Report ---
XR chest 1V portable HISTORY: 60 years-old Male f/u acute respiratory failure COMPARISON: Chest radiograph 04/23/2021 TECHNIQUE: Portable AP view of the chest FINDINGS: Endotracheal tube overlies the midline, 2.7 cm superior to the kalin. Enteric tube distal tip projec ts over the abdominal right upper quadrant in the expected location of the mid stomach. Left IJ centr al venous catheter distal tip terminates in the expected location of the brachiocephalic SVC confluen ce. No pneumothorax. Trace pleural effusions. Cardiomegaly. Pulmonary vascular congestion with mixed interstitial and alveolar opacities, mildly progressed from comparison. The bones appear grossly inta ct. IMPRESSION: 1. Lines and tubes as above. 2. Trace pleural effusions with mildly progressed bilateral pulmonary opacities ACT 112: Negative or not required by law. The above report was generated using voice recognition software. It may contain grammatical, syntax o r spelling errors. Electronically signed by: Travis Rodriguez M.D. 04/24/2021 7:14 AM
[2021-04-24] MEDS: FUROSEMIDE 40 MG in SYRINGE 0 ML IV SCH (08:04)
[2021-04-24] MEDS: carvediloL 6.25 MG TAB PO SCH ×2 (08:05→19:16)
[2021-04-24] MEDS: CHOLECALCIFEROL 1,000 UNITS 25 MCG TAB PO SCH (08:05)
[2021-04-24] MEDS: ENOXAPARIN INJ 40 MG/0.4 ML SYR SQ SCH (08:05)
[2021-04-24] MEDS: ASCORBIC ACID 500 MG TAB PO SCH ×2 (08:05→19:16)
[2021-04-24] MEDS: ZINC SULFATE 220 MG CAPSULE PO SCH (08:06)
[2021-04-24] MEDS ORDERED: INSULIN GLARGINE SOLOSTAR 100 UNITS/ML 3 ML PEN SC ONE (09:00)
--- NOTE | 2021-04-24 09:47 | Hospitalist Progress Note ---
Date of Service April 24, 2021 Assessment & Plan (1) Acute hypoxemic respiratory failure: Plan: Failed outpatient prednisone course. Remained on hi flow to BIPAP for several days as he was a DNR. Changed his mind and was intubated on 04/20, required paralytic/pressor support. Remains in ICU on mechanically ventilated until this afternoon when he was extubated. Appears to be doing well overall. (2) Pneumonia due to COVID-19 virus: Plan: Completed 5-day course of remdesivir Continues on dexamethasone daily at 10 mg. Continues on furosemide 40 mg daily for goal net negative overall-held today with worsening creatinine. Cont supportive care (3) Acute renal failure: Plan: Creatinine worsened from 1.4 to 1.8 likely related to furosemide use. Defer management to marker hand but may consider holding furosemide at this time. Cont to monitor daily BMP While on daily Lasix therapy. Replace Mg (4) Elevated troponin: Plan: Likely demand ischemia, ACS less likely, patient denies any chest pain and there was no escalation of serial trop trend. Echocardiogram deferred secondary to Covid positive status (5) HTN (hypertension): Plan: at goal, cont coreg and lasix therapy, trend BMP daily (6) Transaminitis: Plan: Mild transaminitis, likely secondary to Covid illness. Repet as outpatient to ensure normalization. (7) DVT prophylaxis: Plan: Lovenox Full code Dispo-Continue ICU monitoring and care Eneida Gutierrez DO [facility] Hospitalist Admission and Anticipated Discharge Date Admission Date: April 16, 2021 Subjective 60-year-old man with acute respiratory failure secondary to Covid pneumonia, was originally a DNR, subsequently intubated on 04/20. Extubated today in the afternoon Reports feeling ell Oriented and hungry Denies SOB or chest pain Review of Systems Review of Systems: At least ten systems were reviewed and negative except as indicated in HPI above. Physical Exam Physical Exam: CONSTITUTIONAL: WNWD, vitals as above, NAD EYES: normal conjunctivae, no scleral icterus ENT: external ear and nose normal, MMM NECK: trachea midline RESPIRATORY: Lungs are clear to auscultation throughout, no rales or wheezes CARDIOVASCULAR: regular rate and rhythm, S1 and 2 heard without murmurs, gallops or rubs, no JVD, no peripheral edema GASTROINTESTINAL: soft, nontender, nondistended, no guarding MUSCULOSKELETAL: strength 5/5 throughout, head is normocephalic and atraumatic SKIN: warm and dry NEUROLOGIC: no sensory deficit, normal cognition, normal speech, no tremor, no gross focal deficits. CN2-12 grossly intact. PSYCHIATRIC: alert cooperative and oriented to person, place and time. Results & Data Results & Data ([facility]) Vital Signs (Past 12 Hours) Vital Signs Temp Pulse Resp BP Pulse Ox 04/24/21 08:01 89 21 90 04/24/21 08:00 76 100/96 04/24/21 07:44 75 04/24/21 06:33 37.1 C 68 148/65 H 91 04/24/21 05:33 37.2 C 72 148/68 H 91 04/24/21 04:53 72 20 91 04/24/21 04:33 37.3 C 73 133/64 90 04/24/21 03:33 37.3 C 72 151/73 H 89 L 04/24/21 02:40 77 19 89 L 04/24/21 02:33 37.4 C 75 133/66 89 L 04/24/21 01:33 37.3 C 75 159/67 H 93 04/24/21 00:33 37.4 C 76 139/66 88 L 04/23/21 23:33 37.6 C H 78 132/65 89 L 04/23/21 23:14 82 22 89 L 04/23/21 22:33 37.7 C H 78 128/65 90 Laboratory Results Short CBC 04/24/21 Range/Units 04:58 WBC 14.96 H (4.8-10.8) K/uL Hgb 15.5 D (14.0-18.0) g/dL Hct 47.9 (42-52) % Plt Count 427 H (130-400) K/uL BMP 04/24/21 04/24/21 04:58 06:12 Sodium Cancelled 144 Potassium Cancelled 4.5 D Chloride Cancelled 113 H Carbon Dioxide Cancelled 26 BUN Cancelled 67 H Creatinine Cancelled 1.84 H D Glucose Cancelled 168 H Calcium Cancelled 9.1 D Diagnostic Findings Chest X-Ray 04/24/21 07:00 XR chest 1V portable HISTORY: 60 years-old Male f/u acute respiratory failure COMPARISON: Chest radiograph 04/23/2021 TECHNIQUE: Portable AP view of the chest FINDINGS: Endotracheal tube overlies the midline, 2.7 cm superior to the kalin. Enteric tube distal tip projects over the abdominal right upper quadrant in the expected location of the mid stomach. Left IJ central venous catheter distal tip terminates in the expected location of the brachiocephalic SVC confluence. No pneumothorax. Trace pleural effusions. Cardiomegaly. Pulmonary vascular congestion with mixed interstitial and alveolar opacities, mildly progressed from comparison. The bones appear grossly intact. IMPRESSION: 1. Lines and tubes as above. 2. Trace pleural effusions with mildly progressed bilateral pulmonary opacities ACT 112: Negative or not required by law. The above report was generated using voice recognition software. It may contain grammatical, syntax or spelling errors. Electronically signed by: Travis Rodriguez M.D. 04/24/2021 7:14 AM Medications Administered Current Inpatient Medications Acetaminophen (Acetaminophen 325 Mg Tab) 325 mg PO Q6H PRN PRN Reason: Mild Pain Stop: 05/16/21 23:48 Albuterol (Albuterol Hfa 8 Gm Inhaler) 2 puffs INH QIDR PRN PRN Reason: Shortness Of Breath Or Wheezin Stop: 05/17/21 06:59 Ascorbic Acid (Ascorbic Acid 500 Mg Tab) 500 mg PO BID [facility] Stop: 05/18/21 20:59 Last Admin: 04/24/21 08:05 Dose: 500 mg Documented by: Carvedilol (Carvedilol 6.25 Mg Tab) 6.25 mg PO BID [facility] Stop: 05/17/21 20:59 Last Admin: 04/24/21 08:05 Dose: 6.25 mg Documented by: Enoxaparin Sodium (Enoxaparin Inj 40 Mg/0.4 Ml Syr) 40 mg SQ QAM [facility] Stop: 05/19/21 08:59 Last Admin: 04/24/21 08:05 Dose: 40 mg Documented by: Fentanyl Citrate (Fentanyl Bolus From Bag) 50 mcg IV Q60M PRN PRN Reason: Pain or Agitation Stop: 05/04/21 18:00 Furosemide 40 mg/ Syringe 4 mls @ 4 mls/min IV DAILY [facility] FELIPE Stop: 05/19/21 08:59 Last Admin: 04/24/21 08:04 Dose: 4 mls/min Documented by: Dexamethasone 10 mg/ Syringe 2.5 mls @ 1 mls/min IV Q24H [facility] Stop: 05/20/21 16:59 Last Admin: 04/23/21 13:50 Dose: 1 mls/min Documented by: Propofol (Diprivan) 1,000 mg in 100 mls @ 7.875 mls/hr IV .[id number] [facility]; Protocol Stop: 04/26/21 18:14 Last Admin: 04/24/21 07:00 Dose: Not Given Documented by: Fentanyl Citrate (Fentanyl Drip) 1,250 mcg in 250 mls @ 5 mls/hr IV .Q50H [facility]; Protocol Stop: 05/04/21 18:14 Last Admin: 04/23/21 23:04 Dose: Not Given Documented by: Pantoprazole Sodium 40 mg/ (Syringe) 10 mls @ 5 mls/min IV DAILY@1100 [facility] Stop: 05/21/21 10:59 Last Admin: 04/23/21 11:37 Dose: 5 mls/min Documented by: Insulin Aspart (Insulin Aspart 100 Units/Ml 3 Ml Pen) 0 units SC Q4 [facility] Stop: 05/22/21 09:59 Last Admin: 04/24/21 08:20 Dose: 1 units Documented by: Miscellaneous Information (Pharmacy Glycemic Mgmt Consult) 1 ea N/A UD PRN PRN Reason: Consult Stop: 05/20/21 23:09 Propofol (Propofol Bolus From Bag) 20 mg IV Q5M PRN PRN Reason: Sedation Stop: 04/26/21 18:00 Vitamin D (Cholecalciferol 1,000 Units 25 Mcg Tab) [facility] [place] Stop: 05/19/21 08:59 Last Admin: 04/24/21 08:05 Dose: 1,000 units Documented by: Zinc Sulfate (Zinc Sulfate 220 Mg Capsule) 220 mg PO QAM [facility] Stop: 05/19/21 08:59 Last Admin: 04/24/21 08:06 Dose: 220 mg Documented by:
--- NOTE | 2021-04-24 09:50 | Critical Care Progress Note ---
Date of Service April 24, 2021 Assessment & Plan (1) Pneumonia due to COVID-19 virus: (2) Acute hypoxemic respiratory failure: Plan: 60-year-old male with COVID-19 viral pneumonia. Intubated 04/20/2021 Neuro - [facility] ICU: Negative Paralyzed on Nimbex Continue with propofol and fentanyl's Possible lacunar infarct -MRI to r/o acute/subacute infarct today Cardiac - Hypotensive: Resolved Respiratory - --VDRF secondary to acute hypoxic respiratory failure Secondary to multilobar COVID-19 pneumonia Complete the course of remdesivir and dexamethasone COVID-19 PCR positive CRP 8.5 --> 1.7 --> 7.09 --> 6.03 Procalcitonin 0.15 Continue with lung protective ventilation High PEEP, low tidal volume to keep Plateau < 30 with permissive hypercapnea if need be. GI - Trophic feeds Constipation -Add MiraLAX and Senokot daily RENAL/LYTES - --CKD Monitor BUNs/creatinine Avoid nephrotoxic medication ENDO - Continue with ICU hyperglycemia protocol HEME - Leukocytosis likely from steroids Monitor H&H ID - COVID-19 management as above --Prophylaxis VTE: Lovenox GI: Protonix Lines: Left IJ 04/21/20, right radial, positive Nguyễn Diet: Trophic feeds Admission and Anticipated Discharge Date Admission Date: April 16, 2021 Supervising Physician Co-Signing Physician Notes I have personally spent 50 minutes of critical care time in the direct management of this patient. This is a life/limb threatening event. This includes time spent evaluating patient, direct bedside care, chart review, placing orders, interpretation of diagnostic studies, discussion with consultants, patient, and family members, as well as other required patient management activities. This time is exclusive of all separately billable procedures, and teaching time and separate from and in addition to any other critical care service time. Subjective Planned MRI at 10 AM, clinically the patient has moved bilateral extremities. We will continue to wean ventilator today Physical Exam Physical Exam: General: Alert. nontoxic. Skin: Warm, dry, Head: Atraumatic Ears, nose, mouth and throat: airway obscured by endotracheal tube Cardiovascular: Normal peripheral perfusion Respiratory: no respiratory distress, ventilator settings reviewed Gastrointestinal: Non distended Musculoskeletal: No deformity Results & Data Results & Data ([facility]) Vital Signs (Past 12 Hours) Vital Signs Temp Pulse Resp BP Pulse Ox 04/24/21 08:01 89 21 90 04/24/21 08:00 76 100/96 04/24/21 07:44 75 04/24/21 06:33 37.1 C 68 148/65 H 91 04/24/21 05:33 37.2 C 72 148/68 H 91 04/24/21 04:53 72 20 91 04/24/21 04:33 37.3 C 73 133/64 90 04/24/21 03:33 37.3 C 72 151/73 H 89 L 04/24/21 02:40 77 19 89 L 04/24/21 02:33 37.4 C 75 133/66 89 L 04/24/21 01:33 37.3 C 75 159/67 H 93 04/24/21 00:33 37.4 C 76 139/66 88 L 04/23/21 23:33 37.6 C H 78 132/65 89 L 04/23/21 23:14 82 22 89 L 04/23/21 22:33 37.7 C H 78 128/65 90 Laboratory Results 04/24/21 04/24/21 04/24/21 Range/Units 08:15 06:12 05:02 WBC (4.8-10.8) K/uL RBC (4.7-6.1) M/uL Hgb (14.0-18.0) g/dL Hct (42-52) % MCV (80-100) fL MCH (25-34) pg MCHC (32-36) g/dL RDW Std Deviation (36.4-46.3) fL RDW Coeff of Kalani (11.5-14.5) % Plt Count (130-400) K/uL MPV (7.4-10.4) fL Immature Gran % (Auto) % Neut % (Auto) % Lymph % (Auto) % [place] % (Auto) % Eos % (Auto) % Baso % (Auto) % Neut # (Auto) (1.4-6.5) K/uL Lymph # (Auto) (1.2-3.4) K/uL [place] # (Auto) (0.11-0.59) K/uL Eos # (Auto) (0-0.5) K/uL Baso # (Auto) (0-0.2) K/uL Immature Gran # (Auto) (0.00-0.02) K/uL Sample Site Art Line POC pH 7.43 (7.35-7.45) POC pCO2 39 (35-46) mmHg POC pO2 73 L (80-95) mmHg POC HCO3 26 H (19-24) azalia/L POC Total CO2 27 (24-31) mmol/L POC Base Excess 2.0 H (-9-1.8) azalia/L POC ABG O2 Sat 95.0 (90-95) % Jose Alejandro Test NA O2 Delivery Device Ventilator POC O2 Rate 16 Minute Ventilation 7.6 POC FiO2 40 % Tidal Volume 430 PEEP 5 Sodium 144 Potassium 4.5 D Chloride 113 H Carbon Dioxide 26 Anion Gap 5.0 BUN 67 H Creatinine 1.84 H D Est Cr Clr Drug Dosing 41.3 Est GFR ( Amer) 45.2 Est GFR (Non-Af Amer) 39.0 BUN/Creatinine Ratio 36.3 H Glucose 168 H POC Glucose 147 H (70-99) mg/dl Calcium 9.1 D Phosphorus 3.8 Magnesium 3.2 H Triglycerides 455 H Lipase 391 04/24/21 04/24/21 04/24/21 Range/Units 04:58 04:58 03:29 WBC 14.96 H (4.8-10.8) K/uL RBC 5.41 (4.7-6.1) M/uL Hgb 15.5 D (14.0-18.0) g/dL Hct 47.9 (42-52) % MCV 88.5 (80-100) fL MCH 28.7 (25-34) pg MCHC 32.4 (32-36) g/dL RDW Std Deviation 44.4 (36.4-46.3) fL RDW Coeff of Kalani 13.7 (11.5-14.5) % Plt Count 427 H (130-400) K/uL MPV 10.7 H (7.4-10.4) fL Immature Gran % (Auto) 1.0 % Neut % (Auto) 86.9 % Lymph % (Auto) 11.3 % [place] % (Auto) 0.7 % Eos % (Auto) 0.0 % Baso % (Auto) 0.1 % Neut # (Auto) 13.00 H (1.4-6.5) K/uL Lymph # (Auto) 1.69 (1.2-3.4) K/uL [place] # (Auto) 0.11 (0.11-0.59) K/uL Eos # (Auto) 0.00 (0-0.5) K/uL Baso # (Auto) 0.01 (0-0.2) K/uL Immature Gran # (Auto) 0.15 H (0.00-0.02) K/uL Sample Site POC pH (7.35-7.45) POC pCO2 (35-46) mmHg POC pO2 (80-95) mmHg POC HCO3 (19-24) azalia/L POC Total CO2 (24-31) mmol/L POC Base Excess (-9-1.8) azalia/L POC ABG O2 Sat (90-95) % Jose Alejandro Test O2 Delivery Device POC O2 Rate Minute Ventilation POC FiO2 % Tidal Volume PEEP Sodium Cancelled Potassium Cancelled Chloride Cancelled Carbon Dioxide Cancelled Anion Gap Cancelled BUN Cancelled Creatinine Cancelled Est Cr Clr Drug Dosing Cancelled Est GFR ( Amer) Cancelled Est GFR (Non-Af Amer) Cancelled BUN/Creatinine Ratio Cancelled Glucose Cancelled POC Glucose 140 H (70-99) mg/dl Calcium Cancelled Phosphorus Cancelled Magnesium Cancelled Triglycerides Cancelled Lipase Cancelled 04/23/21 04/23/21 04/23/21 Range/Units 23:20 19:36 16:08 WBC (4.8-10.8) K/uL RBC (4.7-6.1) M/uL Hgb (14.0-18.0) g/dL Hct (42-52) % MCV (80-100) fL MCH (25-34) pg MCHC (32-36) g/dL RDW Std Deviation (36.4-46.3) fL RDW Coeff of Kalani (11.5-14.5) % Plt Count (130-400) K/uL MPV (7.4-10.4) fL Immature Gran % (Auto) % Neut % (Auto) % Lymph % (Auto) % [place] % (Auto) % Eos % (Auto) % Baso % (Auto) % Neut # (Auto) (1.4-6.5) K/uL Lymph # (Auto) (1.2-3.4) K/uL [place] # (Auto) (0.11-0.59) K/uL Eos # (Auto) (0-0.5) K/uL Baso # (Auto) (0-0.2) K/uL Immature Gran # (Auto) (0.00-0.02) K/uL Sample Site POC pH (7.35-7.45) POC pCO2 (35-46) mmHg POC pO2 (80-95) mmHg POC HCO3 (19-24) azalia/L POC Total CO2 (24-31) mmol/L POC Base Excess (-9-1.8) azalia/L POC ABG O2 Sat (90-95) % Jose Alejandro Test O2 Delivery Device POC O2 Rate Minute Ventilation POC FiO2 % Tidal Volume PEEP Sodium Potassium Chloride Carbon Dioxide Anion Gap BUN Creatinine Est Cr Clr Drug Dosing Est GFR ( Amer) Est GFR (Non-Af Amer) BUN/Creatinine Ratio Glucose POC Glucose 147 H 139 H 121 H (70-99) mg/dl Calcium Phosphorus Magnesium Triglycerides Lipase 04/23/21 Range/Units 11:47 WBC (4.8-10.8) K/uL RBC (4.7-6.1) M/uL Hgb (14.0-18.0) g/dL Hct (42-52) % MCV (80-100) fL MCH (25-34) pg MCHC (32-36) g/dL RDW Std Deviation (36.4-46.3) fL RDW Coeff of Kalani (11.5-14.5) % Plt Count (130-400) K/uL MPV (7.4-10.4) fL Immature Gran % (Auto) % Neut % (Auto) % Lymph % (Auto) % [place] % (Auto) % Eos % (Auto) % Baso % (Auto) % Neut # (Auto) (1.4-6.5) K/uL Lymph # (Auto) (1.2-3.4) K/uL [place] # (Auto) (0.11-0.59) K/uL Eos # (Auto) (0-0.5) K/uL Baso # (Auto) (0-0.2) K/uL Immature Gran # (Auto) (0.00-0.02) K/uL Sample Site POC pH (7.35-7.45) POC pCO2 (35-46) mmHg POC pO2 (80-95) mmHg POC HCO3 (19-24) azalia/L POC Total CO2 (24-31) mmol/L POC Base Excess (-9-1.8) azalia/L POC ABG O2 Sat (90-95) % Jose Alejandro Test O2 Delivery Device POC O2 Rate Minute Ventilation POC FiO2 % Tidal Volume PEEP Sodium Potassium Chloride Carbon Dioxide Anion Gap BUN Creatinine Est Cr Clr Drug Dosing Est GFR ( Amer) Est GFR (Non-Af Amer) BUN/Creatinine Ratio Glucose POC Glucose 131 H (70-99) mg/dl Calcium Phosphorus Magnesium Triglycerides Lipase Coding Level of Care Code Critical Care 1st 30-74 mins Diagnoses Pneumonia due to COVID-19 virus U07.1; J12.82 Acute hypoxemic respiratory failure J96.01
--- NOTE | 2021-04-24 11:37 | Magnetic Resonance Report ---
MRI OF THE BRAIN WITHOUT IV CONTRAST CLINICAL HISTORY: Left hemiparesis. COMPARISON STUDY: CT of the brain dated 04/23/2021. TECHNIQUE: MRI of the brain was performed utilizing various T1 and T2-weighted sequences in the axial , sagittal, and coronal planes. IV contrast was not administered for this examination. The examinatio n is compromised by motion artifact. FINDINGS: Brain parenchyma: There is age-related involutional change noting minimal microangiopathic disease. T here is no hemorrhage or mass effect. There is no restricted diffusion to suggest acute ischemia. Gra y-white matter differentiation is preserved. A chronic lacunar infarct is noted in the kishan. No extra -axial fluid collection is seen. The cerebellar tonsils are normal in configuration. Ventricles, sulci, and cisterns: Prominent secondary to involutional change. Pituitary and sella: Partially empty sella is incidentally noted. Intracranial vasculature: Normal flow voids are maintained at the skull base. Orbits: The bony orbits are grossly intact. Orbital contents are normal in appearance. Sinuses and mastoids: There are large mastoid effusions. There is evidence of previous paranasal sinu s surgery. Mucosal thickening is noted in the right maxillary antrum and the sphenoid sinuses. Calvarium: Unremarkable. Cervical cord: Partially visualized cervical spinal cord is normal in morphology and signal intensity . IMPRESSION: 1. No acute intracranial abnormality. 2. Large mastoid effusions. 3. Additional findings as above. ACT 112: Negative or not required by law. Electronically signed by: Andrew Colon M.D. 04/24/2021 11:35 AM
--- NOTE | 2021-04-24 12:35 | Palliative Care Progress Note ---
Date of Service April 24, 2021 Assessment & Plan (1) Palliative care encounter: Plan: The patient is able to wake today and follow simple commands. He is now able to spontaneously move all of his limbs, an improvement from yesterday. MRI was performed and unremarkable. Suspect that he had a TIA yesterday resulting in his short term left sided flaccidity, which has now recovered. They are working on continuing to wean him from the ventilator. Today is the first day he is able to tolerate pressure support/CPAP trial. I was able to talk with his , Ya Cedillo at [phone]. As stated yesterday, she stated that she and her Wilbert have never discussed wishes and what he would want done in certain scenarios. 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 They have been since 2007. We discussed CPR and code status and for now, remain a full code and continue to pursue aggressive measures in his care. For now, palliative medicine will follow. (2) Pneumonia due to COVID-19 virus: (3) Hypoxia: (4) Weakness: Admission and Anticipated Discharge Date Admission Date: April 16, 2021 Subjective Patient awake and follows simple commands today. able to spontaneously move all limbs MRI performed and negative this AM. Continue aggressive measures - Full code. Continue weaning from vent. on pressure support with FiO2 0.40 See A/P for further details. Review of Systems Review of Systems: Wolf System Assessment Scale: Pain AD: 1/3 SOB AD: 0/3 Anxiety by OBS: 0/3 palliative performance scale: 30% Physical Exam Constitutional: + frail appearing and + mechanically ventilated Respiratory: normal respiratory effort Auscultation: + diminished lung sounds Cardiovascular: Rate/Rhythm: regular rate and regular rhythm Heart Sounds: normal S1 and normal S2 Extremities: normal capillary refill Gastrointestinal (Abdomen): Inspection/Auscultation: abdomen normal to inspection Skin: + pallor Psychiatric: Orientation: alert Results & Data ([facility]) Vital Signs (Past 12 Hours) Vital Signs Temp Pulse Resp BP Pulse Ox 04/24/21 11:22 74 21 95 04/24/21 11:00 37.3 C 75 20 131/66 94 04/24/21 09:33 37.2 C 73 159/71 H 91 04/24/21 08:33 37.2 C 78 169/74 H 91 04/24/21 08:01 89 21 90 04/24/21 08:00 76 100/96 04/24/21 07:44 75 04/24/21 07:33 37.1 C 76 167/88 H 89 L 04/24/21 06:33 37.1 C 68 148/65 H 91 04/24/21 05:33 37.2 C 72 148/68 H 91 04/24/21 04:53 72 20 91 04/24/21 04:33 37.3 C 73 133/64 90 04/24/21 03:33 37.3 C 72 151/73 H 89 L 04/24/21 02:40 77 19 89 L 04/24/21 02:33 37.4 C 75 133/66 89 L 04/24/21 01:33 37.3 C 75 159/67 H 93 PG Care Time/CCT Total # of Minutes Spent Total Time Spent with Patient: Total time spent is greater than 50% in coordination of care (as documented) at patient's floor/unit and/or counseling patient: 35 minutes with >50% of that time spent assessing the patient, discussing goals of care with the patients , and collaborating with IDT Coding Level of Care Code 09227 Subseq Hosp Care Lvl 3 Diagnoses Palliative care encounter Z51.5 Pneumonia due to COVID-19 virus U07.1; J12.82 Hypoxia R09.02 Weakness R53.1 Time Spent (min) 35
[2021-04-24] MEDS: PANTOprazole 40 MG in SYRINGE 0 ML IV SCH (12:56)
[2021-04-24] MEDS: dexAMETHasone 10 MG in SYRINGE 0 ML IV SCH (12:56)
[2021-04-24] MEDS: POLYETHYLENE (MIRALAX) 17 GM PACK PO SCH (12:56)
[2021-04-24] MEDS: DOCUSATE SODIUM/SENNA 50/8.6MG TAB PO SCH (12:56)
[2021-04-25] MEDS: fentaNYL DRIP 1,250 MCG/250 ML BAG IV SCH (00:56)
[2021-04-25] MEDS: INSULIN ASPART 100 UNITS/ML 3 ML PEN SC SCH ×6 (00:58→21:33)
[2021-04-25 05:35] LABS: Basophils # (auto) 0.01 K/uL (0-0.2); Basophils % (auto) 0.1 %; Hematocrit (blood only) 51.1 % (42-52); Hemoglobin 16.1 g/dL (14.0-18.0); Immature Granulocytes # (auto) 0.12 K/uL (0.00-0.02); Lymphocytes # (auto) 1.43 K/uL (1.2-3.4); Lymphocytes % (auto) 11.5 %; Mean Corpuscular Hemoglobin 28.3 pg (25-34); Mean Corpuscular Hgb Conc 31.5 g/dL (32-36); Mean Platelet Volume 10.1 fL (7.4-10.4); Monocytes # (auto) 0.49 K/uL (0.11-0.59); Monocytes % (auto) 3.9 %; Neutrophils # (auto) 10.41 K/uL (1.4-6.5); Neutrophils % (auto) 83.5 %; Platelet Count 381 K/uL (130-400); RDW Coefficient of Variation 13.7 % (11.5-14.5); RDW Standard Deviation 45.1 fL (36.4-46.3); Red Blood Count 5.68 M/uL (4.7-6.1); White Blood Count 12.46 K/uL (4.8-10.8)
[2021-04-25 05:58] LABS: BUN Creatinine Ratio 42.3 (10-20); Calcium 9.5 mg/dl (8.5-10.1); Creatinine Clr Calc Pharmacy 44.4 ml/min; Est GFR (African American) 49.3 ml/min; Est GFR (Non-African American) 42.6 ml/min; Magnesium 3.5 mg/dl (1.8-2.4); Potassium 4.6 mmol/L (3.5-5.1)
[2021-04-25 05:59] LABS: Phosphorus 3.6 mg/dl (2.5-4.9)
[2021-04-25] MEDS: ENOXAPARIN INJ 40 MG/0.4 ML SYR SQ SCH (08:28)
--- NOTE | 2021-04-25 08:49 | XRay Report ---
XR chest 1V portable INDICATION: MN ^f/u . TECHNIQUE: Single frontal radiograph of the chest was obtained. Comparison: Comparison is made to chest one view 04/24/2021 FINDINGS: Interval removal of endotracheal tube. Left jugular venous catheters unchanged in position. The cardi omediastinal silhouette is stable. Lungs are underinflated. Again seen are bilateral airspace opaciti es, similar in extent to prior exam. There is a small right pleural effusion. IMPRESSION: Stable bilateral airspace opacities and small right pleural effusion. ACT 112: Negative or not required by law. Electronically signed by: Kal Israel M.D. 04/25/2021 8:47 AM
[2021-04-25] MEDS ORDERED: INSULIN GLARGINE SOLOSTAR 100 UNITS/ML 3 ML PEN SC ONE (09:15)
[2021-04-25] MEDS: DOCUSATE SODIUM/SENNA 50/8.6MG TAB PO SCH (09:23)
[2021-04-25] MEDS: POLYETHYLENE (MIRALAX) 17 GM PACK PO SCH (09:23)
[2021-04-25] MEDS: ASCORBIC ACID 500 MG TAB PO SCH ×2 (09:23→21:17)
[2021-04-25] MEDS: ZINC SULFATE 220 MG CAPSULE PO SCH (09:23)
[2021-04-25] MEDS: CHOLECALCIFEROL 1,000 UNITS 25 MCG TAB PO SCH (09:23)
[2021-04-25] MEDS: carvediloL 6.25 MG TAB PO SCH ×2 (10:49→21:17)
[2021-04-25] MEDS: PANTOprazole 40 MG in SYRINGE 0 ML IV SCH (12:37)
[2021-04-25] MEDS: dexAMETHasone 10 MG in SYRINGE 0 ML IV SCH (12:37)
--- NOTE | 2021-04-25 14:05 | Pharmacy Report ---
Pharmacy Glycemic Short Note 2 - Date of Service April 25, 2021 - Glycemic Short BSG Results (Last 24 hours): 04/24/21 04/24/21 04/25/21 15:13 19:26 00:28 Glucose POC Glucose 139 H 171 H 145 H 04/25/21 04/25/21 04/25/21 03:55 05:08 13:34 Glucose 145 H POC Glucose 136 H 146 H OUTPATIENT ANTIDIABETIC REGIMEN: * n/a * A1c = 6.6% on 04/21/21 ASSESSMENT: 04/25: * Last day of dexamethasone today, may need adjustments to lantus dose tomorrow, Fasting this morning 136 mg/mL * Patient remains NPO, slightly reduced basal to 30 units this morning * continuing current novolog parameters 04/23 * Patient was successfully transitioned off insulin drip yesterday * Fasting BSG at goal this AM following receipt of 50 units Lantus yesterday, and has received 6 units correctional insulin since drip d/c'd * Patient remians intubed and NPO at this time. Will give a reduced dose of Lantus today due to ongoing NPO status and depletion of glycogen stores * Dex 10mg IV daily continues 04/22 * IV insulin infusion stable at 2.6 units/hr since 04/21 @ 1430. Will transition from IV insulin to SQ basal bolus insulin regimen per transition protocol * Calculated TDD = 62 units/day. Will give 80% of this for conversion of IV to SQ. NovoLog Q4hrs per scale if additional insulin needed * Pt remains NPO, on mechanical ventilation, paralyzed, prone positioning. SQ insulin requested to minimize BSG checks and RN exposure 04/21 * 60yo male -with presumed pre-diabetes per A1c, however patient was on a recent prednisone taper 04/06 therefore this may be falsely elevated. * Pt initiated on IV insulin infusion per ICU hyperglycemia protocol. * Auto pharmacy consult per protocol. * Will continue with IV insulin infusion as it is the standard of care in ICU. Pt is sedated and on mechanical ventilation. Will initiate transition to SQ basal bolus insulin regimen with patient meets criteria for transition. Anticipating basal bolus with NPH + NovoLog for steroid induced hyperglycemia secondary to daily dexamethasone for COVID-19. PLAN FOR INPATIENT GLYCEMIC CONTROL: * Basal insulin * Lantus 30 units SQ x 1 dose, will need reassessed in AM * NovoLog Q4hrs * Goal range: 110-140 mg/dl * CF = 20mg/dl/unit * CR = 1 unit for every 6 grams CHO consumed (when diet started)
--- NOTE | 2021-04-25 14:39 | Hospitalist Progress Note ---
Date of Service April 25, 2021 Assessment & Plan (1) Acute hypoxemic respiratory failure: Plan: Secondary to COVID 19 pneumonia Failed outpatient prednisone course. Patient is Extubated on 04/24/21 Off Nimbex Continue supplemental oxygen (2) Pneumonia due to COVID-19 virus: Plan: Completed 5-day course of remdesivir Completed dexamethasone course for 10 days Lasix PRN Will need 2 step prior to discharge (3) Acute renal failure: Plan: Creatinine slowly improving Monitor renal function Avoid nephrotoxic agents as able (4) Elevated troponin: Plan: Likely demand ischemia ACS less likely Denies chest pain (5) HTN (hypertension): Plan: Continue carvedilol Monitor BP (6) Transaminitis: Plan: Mild transaminitis likely secondary to Covid 19 infections (7) DVT prophylaxis: Plan: Lovenox SQ Code Status Full code Admission and Anticipated Discharge Date Admission Date: April 16, 2021 Subjective Patient is seen and examined at bedside Discussed with critical care today Patient denies any significant dyspnea, dizziness, nausea, abdominal pain, chest pain Reports minimal cough No distress on exam Offers no other complaints Review of Systems Review of Systems: All systems reviewed & are unremarkable except as noted in Subjective Physical Exam Physical Exam: Physical Exam: Vitals signs as noted above General Appearance:Moderately built and nourished, no apparent distress Head: normocephalic, Atraumatic Eyes: normal inspection, EOMI Neck: supple, Trachea midline Respiratory/Chest: Decreased breath sounds, CTA Cardiovascular: S1, S2, No murmur Abdomen/GI:Soft, Non tender, Bowel sounds present Extremities/Musculoskeletal:normal inspection, no edema Neurologic/Psych:AAOX3, grossly no focal neurological deficits Skin: normal color, warm Results & Data Results & Data ([facility]) Vital Signs (Past 12 Hours) Vital Signs Temp Pulse Pulse Resp BP BP Pulse Ox 04/25/21 11:16 36.3 C L 82 18 171/71 H 92 04/25/21 09:10 81 04/25/21 08:30 37.3 C 75 22 187/73 H 93 04/25/21 07:33 37.4 C 78 166/72 H 91 04/25/21 06:33 37.3 C 72 22 171/73 H 94 04/25/21 04:40 60 22 94 04/25/21 04:33 37.2 C 75 159/70 H 94 04/25/21 03:33 37.2 C 74 164/65 H 95 04/25/21 02:35 75 19 94 04/25/21 02:33 37.1 C 75 177/71 H 95 Laboratory Results Short CBC 04/25/21 Range/Units 05:08 WBC 12.46 H (4.8-10.8) K/uL Hgb 16.1 (14.0-18.0) g/dL Hct 51.1 (42-52) % Plt Count 381 (130-400) K/uL BMP 04/25/21 05:08 Sodium 147 H Potassium 4.6 Chloride 115 H Carbon Dioxide 30 BUN 72 H Creatinine 1.71 H Glucose 145 H Calcium 9.5
[2021-04-26] MEDS: INSULIN ASPART 100 UNITS/ML 3 ML PEN SC SCH ×7 (04:04→20:49)
[2021-04-26 06:22] LABS: Hematocrit (blood only) 52.3 % (42-52); Hemoglobin 16.6 g/dL (14.0-18.0); Mean Corpuscular Hemoglobin 28.8 pg (25-34); Mean Corpuscular Hgb Conc 31.7 g/dL (32-36); Mean Corpuscular Volume 90.8 fL (80-100); Mean Platelet Volume 10.4 fL (7.4-10.4); Platelet Count 378 K/uL (130-400); RDW Coefficient of Variation 13.8 % (11.5-14.5); Red Blood Count 5.76 M/uL (4.7-6.1); White Blood Count 18.04 K/uL (4.8-10.8)
[2021-04-26 07:08] LABS: BUN Creatinine Ratio 44.7 (10-20); Calcium 9.3 mg/dl (8.5-10.1); Creatinine Clr Calc Pharmacy 47.8 ml/min; Est GFR (African American) 53.9 ml/min; Est GFR (Non-African American) 46.5 ml/min; Potassium 4.7 mmol/L (3.5-5.1)
[2021-04-26] MEDS: carvediloL 6.25 MG TAB PO SCH ×2 (09:14→19:58)
[2021-04-26] MEDS: ZINC SULFATE 220 MG CAPSULE PO SCH (09:14)
[2021-04-26] MEDS: DOCUSATE SODIUM/SENNA 50/8.6MG TAB PO SCH (09:14)
[2021-04-26] MEDS: CHOLECALCIFEROL 1,000 UNITS 25 MCG TAB PO SCH (09:14)
[2021-04-26] MEDS: ASCORBIC ACID 500 MG TAB PO SCH ×2 (09:14→19:58)
[2021-04-26] MEDS: ENOXAPARIN INJ 40 MG/0.4 ML SYR SQ SCH (09:15)
[2021-04-26] MEDS: POLYETHYLENE (MIRALAX) 17 GM PACK PO SCH (09:15)
[2021-04-26] MEDS: INSULIN GLARGINE SOLOSTAR 100 UNITS/ML 3 ML PEN SC SCH (09:35)
[2021-04-26] MEDS: PANTOprazole 40 MG in SYRINGE 0 ML IV SCH (11:00)
--- NOTE | 2021-04-26 12:11 | Pharmacy Report ---
Pharmacy Glycemic Short Note 2 - Date of Service April 26, 2021 - Glycemic Short BSG Results (Last 24 hours): 04/25/21 04/25/21 04/25/21 13:34 17:06 20:20 Glucose POC Glucose 146 H 163 H 190 H 04/25/21 04/26/21 04/26/21 23:46 04:01 05:45 Glucose 116 H POC Glucose 179 H 108 H 04/26/21 08:12 Glucose POC Glucose 95 OUTPATIENT ANTIDIABETIC REGIMEN: * n/a * A1c = 6.6% on 04/21/21 ASSESSMENT: 04/26: * BSGs fairly well controlled over last 24 hours despite receiving IV dexamethasone 10mg x 1 yesterday * No further steroid therapy is ordered today however. Will scale back both basal and prandial insulin doses as a result as this patient did not require outpt medications for DM management and recent A1c reflects good control. * Will follow BSG pattern and adjust doses downward as warranted. There may be lingering effects of prolonged IV dexamethasone administration. 04/25: * Last day of dexamethasone today, may need adjustments to lantus dose tomorrow, Fasting this morning 136 mg/mL * Patient remains NPO, slightly reduced basal to 30 units this morning * continuing current novolog parameters 04/23 * Patient was successfully transitioned off insulin drip yesterday * Fasting BSG at goal this AM following receipt of 50 units Lantus yesterday, and has received 6 units correctional insulin since drip d/c'd * Patient remians intubed and NPO at this time. Will give a reduced dose of Lantus today due to ongoing NPO status and depletion of glycogen stores * Dex 10mg IV daily continues 04/22 * IV insulin infusion stable at 2.6 units/hr since 04/21 @ 1430. Will transition from IV insulin to SQ basal bolus insulin regimen per transition protocol * Calculated TDD = 62 units/day. Will give 80% of this for conversion of IV to SQ. NovoLog Q4hrs per scale if additional insulin needed * Pt remains NPO, on mechanical ventilation, paralyzed, prone positioning. SQ insulin requested to minimize BSG checks and RN exposure PLAN FOR INPATIENT GLYCEMIC CONTROL: * Basal insulin * Lantus 10 units SQ Q AM * NovoLog Q4hrs * Goal range: 110-140 mg/dl * CF = 25mg/dl/unit * CR = 1 unit for every 7 grams CHO consumed (when diet started)
--- NOTE | 2021-04-26 15:27 | Hospitalist Progress Note ---
Date of Service April 26, 2021 Assessment & Plan (1) Acute hypoxemic respiratory failure: Plan: Secondary to COVID 19 pneumonia Failed outpatient prednisone course. Patient is Extubated on 04/24/21 Clinically improved Saturating well on 3 L of supplemental oxygen (2) Pneumonia due to COVID-19 virus: Plan: Completed 5-day course of remdesivir Completed dexamethasone course for 10 days Lasix PRN Will need 2 step prior to discharge (3) Acute renal failure: Plan: Creatinine slowly improving Monitor renal function Avoid nephrotoxic agents as able Cr: 1.5 today (4) Elevated troponin: Plan: Likely demand ischemia ACS less likely Denies chest pain (5) HTN (hypertension): Plan: Continue carvedilol Monitor BP (6) Transaminitis: Plan: Mild transaminitis likely secondary to Covid 19 infections (7) DVT prophylaxis: Plan: Lovenox SQ Code Status Full code Admission and Anticipated Discharge Date Admission Date: April 16, 2021 Subjective Patient is seen and examined at bedside States feeling much better today Has only minimal cough No new complaints Denies any dyspnea, dizziness, nausea, abdominal pain, chest pain Saturating well on 3 L of supplemental oxygen Review of Systems Review of Systems: All systems reviewed & are unremarkable except as noted in Subjective Physical Exam Physical Exam: Physical Exam: Vitals signs as noted above General Appearance:Moderately built and nourished, no apparent distress Head: normocephalic, Atraumatic Eyes: normal inspection, EOMI Neck: supple, Trachea midline Respiratory/Chest: Decreased breath sounds, CTA Cardiovascular: S1, S2, No murmur Abdomen/GI:Soft, Non tender, Bowel sounds present Extremities/Musculoskeletal:normal inspection, no edema Neurologic/Psych:AAOX3, grossly no focal neurological deficits Skin: normal color, warm Results & Data Results & Data ([facility]) Vital Signs (Past 12 Hours) Vital Signs Temp Pulse Pulse Resp BP Pulse Ox 04/26/21 12:05 92 H 16 165/60 H 92 04/26/21 08:00 77 04/26/21 07:05 36.5 C 76 18 159/60 H 96 04/26/21 06:24 91 04/26/21 05:58 17 94 04/26/21 03:58 36.5 C 173/71 H Laboratory Results Short CBC 04/26/21 Range/Units 05:45 WBC 18.04 H (4.8-10.8) K/uL Hgb 16.6 (14.0-18.0) g/dL Hct 52.3 H (42-52) % Plt Count 378 (130-400) K/uL [facility] 04/26/21 05:45 Sodium 145 Potassium 4.7 Chloride 117 H Carbon Dioxide 25 BUN 71 H Creatinine 1.59 H Glucose 116 H Calcium 9.3
[2021-04-27 07:26] LABS: Hemoglobin 15.2 g/dL (14.0-18.0); Mean Corpuscular Hemoglobin 28.7 pg (25-34); Mean Corpuscular Hgb Conc 32.3 g/dL (32-36); Mean Corpuscular Volume 88.7 fL (80-100); Mean Platelet Volume 10.4 fL (7.4-10.4); Platelet Count 276 K/uL (130-400); RDW Coefficient of Variation 13.5 % (11.5-14.5)
[2021-04-27 07:51] LABS: BUN Creatinine Ratio 36.8 (10-20); Calcium 8.9 mg/dl (8.5-10.1); Est GFR (African American) 68.1 ml/min; Est GFR (Non-African American) 58.8 ml/min; Magnesium 2.7 mg/dl (1.8-2.4); Potassium 4.8 mmol/L (3.5-5.1)
[2021-04-27 07:52] LABS: C Reactive Protein 0.34 mg/dl (0-0.29)
--- NOTE | 2021-04-27 08:36 | XRay Report ---
XR chest 1V portable CLINICAL HISTORY: covid COMPARISON STUDY: Chest radiograph April 25, 2021. FINDINGS: No pneumothorax or pleural effusion is identified. Cardiomegaly is unchanged. Mediastinal c ontours are stable. There has been slight progression of bilateral airspace opacities since prior exa m. These include bibasilar consolidation. IMPRESSION: Slight progression of bilateral airspace opacities suggestive of viral pneumonia. ACT 112: Negative or not required by law. Electronically signed by: Alen Dunlap M.D. 04/27/2021 8:35 AM
[2021-04-27] MEDS: CHOLECALCIFEROL 1,000 UNITS 25 MCG TAB PO SCH (09:39)
[2021-04-27] MEDS: ZINC SULFATE 220 MG CAPSULE PO SCH (09:39)
[2021-04-27] MEDS: PANTOprazole 40 MG TAB PO SCH (09:39)
[2021-04-27] MEDS: carvediloL 6.25 MG TAB PO SCH ×2 (09:39→21:35)
[2021-04-27] MEDS: ENOXAPARIN INJ 40 MG/0.4 ML SYR SQ SCH (09:39)
[2021-04-27] MEDS: ASCORBIC ACID 500 MG TAB PO SCH ×2 (09:39→21:35)
[2021-04-27] MEDS: DOCUSATE SODIUM/SENNA 50/8.6MG TAB PO SCH (09:40)
[2021-04-27] MEDS: POLYETHYLENE (MIRALAX) 17 GM PACK PO SCH (09:40)
[2021-04-27] MEDS: INSULIN GLARGINE SOLOSTAR 100 UNITS/ML 3 ML PEN SC SCH (09:47)
[2021-04-27] MEDS: INSULIN ASPART 100 UNITS/ML 3 ML PEN SC SCH ×4 (10:41→21:34)
--- NOTE | 2021-04-27 11:11 | Pharmacy Report ---
Pharmacy Glycemic Short Note 2 - Date of Service April 27, 2021 - Glycemic Short BSG Results (Last 24 hours): 04/26/21 04/26/21 04/26/21 12:03 16:23 19:55 Glucose POC Glucose 145 H 155 H 143 H 04/27/21 04/27/21 04/27/21 06:46 07:59 08:00 Glucose 72 POC Glucose 61 L* 65 L* OUTPATIENT ANTIDIABETIC REGIMEN: * n/a * A1c = 6.6% on 04/21/21 ASSESSMENT: 04/27: * BSGs well controlled yesterday * Mild fasting AM hypoglycemia noted today, with 10 units Lantus on board. - will d/c basal * Post-prandial BSGs well controlled yesterday with scaled back prandial doses. Will continue to scale back. 04/26: * BSGs fairly well controlled over last 24 hours despite receiving IV dexamethasone 10mg x 1 yesterday * No further steroid therapy is ordered today however. Will scale back both basal and prandial insulin doses as a result as this patient did not require outpt medications for DM management and recent A1c reflects good control. * Will follow BSG pattern and adjust doses downward as warranted. There may be lingering effects of prolonged IV dexamethasone administration. 04/25: * Last day of dexamethasone today, may need adjustments to lantus dose tomorrow, Fasting this morning 136 mg/mL * Patient remains NPO, slightly reduced basal to 30 units this morning * continuing current novolog parameters 04/23 * Patient was successfully transitioned off insulin drip yesterday * Fasting BSG at goal this AM following receipt of 50 units Lantus yesterday, and has received 6 units correctional insulin since drip d/c'd * Patient remians intubed and NPO at this time. Will give a reduced dose of Lantus today due to ongoing NPO status and depletion of glycogen stores * Dex 10mg IV daily continues 04/22 * IV insulin infusion stable at 2.6 units/hr since 04/21 @ 1430. Will transition from IV insulin to SQ basal bolus insulin regimen per transition protocol * Calculated TDD = 62 units/day. Will give 80% of this for conversion of IV to SQ. NovoLog Q4hrs per scale if additional insulin needed * Pt remains NPO, on mechanical ventilation, paralyzed, prone positioning. SQ insulin requested to minimize BSG checks and RN exposure PLAN FOR INPATIENT GLYCEMIC CONTROL: * Basal insulin - decrease * dc Lantus. Follow fasting AM BSGs * NovoLog Q4hrs - decrease * Goal range: 110-140 mg/dl * CF = 25mg/dl/unit * CR = 1 unit for every 8 grams CHO consumed (when diet started)
--- NOTE | 2021-04-27 14:42 | Hospitalist Progress Note ---
Date of Service April 27, 2021 Assessment & Plan (1) Acute hypoxemic respiratory failure: Plan: Secondary to COVID 19 pneumonia Failed outpatient prednisone course. Patient is Extubated on 04/24/21 Continue supplemental oxygen (2) Pneumonia due to COVID-19 virus: Plan: Completed 5-day course of remdesivir Completed dexamethasone course for 10 days Lasix PRN Needs 2 step prior to discharge Will give 20 mg Lasix today Encourage to prone (3) Acute renal failure: Plan: Monitor renal function Avoid nephrotoxic agents as able Cr: 1.3 today (4) Elevated troponin: Plan: Likely demand ischemia ACS less likely Denies chest pain (5) HTN (hypertension): Plan: Continue carvedilol Monitor BP (6) Transaminitis: Plan: Mild transaminitis likely secondary to Covid 19 infections (7) DVT prophylaxis: Plan: Lovenox SQ Code Status Full code Admission and Anticipated Discharge Date Admission Date: April 16, 2021 Subjective Patient is seen and examined at bedside No new complaints Persistent cough Saturating well on supplemental oxygen Denies any chest pain, dyspnea, dizziness, nausea, abdominal pain Review of Systems Review of Systems: All systems reviewed & are unremarkable except as noted in Subjective Physical Exam Physical Exam: Physical Exam: Vitals signs as noted above General Appearance:Moderately built and nourished, no apparent distress Head: normocephalic, Atraumatic Eyes: normal inspection, EOMI Neck: supple, Trachea midline Respiratory/Chest: Decreased breath sounds, CTA Cardiovascular: S1, S2, No murmur Abdomen/GI:Soft, Non tender, Bowel sounds present Extremities/Musculoskeletal:normal inspection, no edema Neurologic/Psych:AAOX3, grossly no focal neurological deficits Skin: normal color, warm Results & Data Results & Data ([facility]) Vital Signs (Past 12 Hours) Vital Signs Temp Pulse Pulse Resp BP Pulse Ox Pulse Ox 04/27/21 13:26 92 04/27/21 12:11 36.7 C 78 24 140/65 89 L 04/27/21 08:06 36.7 C 74 18 148/67 H 95 04/27/21 08:00 81 04/27/21 04:04 20 96 04/27/21 02:44 36.6 C 73 20 130/63 90 Pulse Ox Pulse Ox 04/27/21 13:26 92 85 L 04/27/21 12:11 04/27/21 08:06 04/27/21 08:00 04/27/21 04:04 04/27/21 02:44 Laboratory Results Short CBC 04/27/21 Range/Units 06:46 WBC 18.10 H (4.8-10.8) K/uL Hgb 15.2 (14.0-18.0) g/dL Hct 47.0 (42-52) % Plt Count 276 (130-400) K/uL BMP 04/27/21 06:46 Sodium 142 Potassium 4.8 Chloride 108 H Carbon Dioxide 30 BUN 48 H Creatinine 1.31 Glucose 72 Calcium 8.9
[2021-04-27 14:59] LABS: Appearance Urine Cloudy (Clear); Bacteria Urine Automated 1+ (Negative); Bilirubin Urine Negative (Negative); Blood Urine 3+ (Negative); Color Urine Yellow; Epithelial Cell Urine Auto >30 /lpf (0-5); Glucose Urine UA Negative (Negative); Ketones Urine Negative (Negative); Leukocyte Esterase Urine 1+ (Negative); Nitrite Urine Negative (Negative); Protein Urine Trace (Negative); Specific Gravity Urine 1.025 (1.000-1.030); Urobilinogen Urine Negative (Negative); pH Urine 5.5 (4.5-7.5)
[2021-04-27] MEDS ORDERED: FUROSEMIDE 20 MG TAB PO ONE (15:00)
[2021-04-27 15:20] LABS: Mucus Urine Present (None Prsent)
[2021-04-27 15:21] LABS: Uric Acid Crystals Urine Present (None Prsent)
[2021-04-28] MEDS: carvediloL 3.125 MG TAB PO SCH ×2 (09:41→21:20)
[2021-04-28] MEDS: PANTOprazole 40 MG TAB PO SCH (09:42)
[2021-04-28] MEDS: ASCORBIC ACID 500 MG TAB PO SCH ×2 (09:42→21:20)
[2021-04-28] MEDS: ZINC SULFATE 220 MG CAPSULE PO SCH (09:42)
[2021-04-28] MEDS: CHOLECALCIFEROL 1,000 UNITS 25 MCG TAB PO SCH (09:42)
[2021-04-28] MEDS: DOCUSATE SODIUM/SENNA 50/8.6MG TAB PO SCH (09:43)
[2021-04-28] MEDS: ENOXAPARIN INJ 40 MG/0.4 ML SYR SQ SCH (09:43)
[2021-04-28] MEDS: POLYETHYLENE (MIRALAX) 17 GM PACK PO SCH (09:43)
--- NOTE | 2021-04-28 09:44 | XRay Report ---
XR chest 1V portable HISTORY: 60 years-old Male COVID acute shortness of breath. COVID Positive. COMPARISON: Chest radiograph 04/27/2021 TECHNIQUE: Portable AP view of the chest FINDINGS: Cardiac silhouette is enlarged. Multifocal bilateral mixed interstitial and alveolar opacities have m ildly progressed from comparison. Probable trace pleural effusions. No pneumothorax.. Cholecystectomy . No acute fracture. IMPRESSION: Mildly progressed bilateral airspace opacities compatible with multifocal pneumonia. ACT 112: Negative or not required by law. The above report was generated using voice recognition software. It may contain grammatical, syntax o r spelling errors. Electronically signed by: Travis Rodriguez M.D. 04/28/2021 9:43 AM
[2021-04-28] MEDS: INSULIN ASPART 100 UNITS/ML 3 ML PEN SC SCH ×4 (10:30→20:53)
[2021-04-28] MEDS: cefTRIAXone SODIUM 2,000 MG in DEXTROSE 5% 50 ML IV SCH (10:43)
[2021-04-28 11:06] LABS: Basophils # (auto) 0.01 K/uL (0-0.2); Basophils % (auto) 0.1 %; Eosinophils # (auto) 0.22 K/uL (0-0.5); Eosinophils % (auto) 1.7 %; Hematocrit (blood only) 48.9 % (42-52); Hemoglobin 16.2 g/dL (14.0-18.0); Immature Granulocytes # (auto) 0.09 K/uL (0.00-0.02); Immature Granulocytes % (auto) 0.7 %; Lymphocytes # (auto) 0.77 K/uL (1.2-3.4); Lymphocytes % (auto) 6.1 %; Mean Corpuscular Hemoglobin 28.9 pg (25-34); Mean Corpuscular Hgb Conc 33.1 g/dL (32-36); Mean Corpuscular Volume 87.2 fL (80-100); Mean Platelet Volume 10.5 fL (7.4-10.4); Monocytes # (auto) 0.92 K/uL (0.11-0.59); Monocytes % (auto) 7.3 %; Neutrophils # (auto) 10.66 K/uL (1.4-6.5); Neutrophils % (auto) 84.1 %; Platelet Count 139 K/uL (130-400); RDW Coefficient of Variation 13.2 % (11.5-14.5); RDW Standard Deviation 42.1 fL (36.4-46.3); Red Blood Count 5.61 M/uL (4.7-6.1); White Blood Count 12.67 K/uL (4.8-10.8)
[2021-04-28 11:40] LABS: BUN Creatinine Ratio 30.3 (10-20); Calcium 8.9 mg/dl (8.5-10.1); Creatinine Clr Calc Pharmacy 68.5 ml/min; Est GFR (African American) 83.2 ml/min; Est GFR (Non-African American) 71.8 ml/min; Potassium 4.5 mmol/L (3.5-5.1)
[2021-04-28] MEDS ORDERED: FUROSEMIDE 20 MG TAB PO ONE (11:44)
--- NOTE | 2021-04-28 16:34 | Hospitalist Progress Note ---
Date of Service April 28, 2021 Assessment & Plan (1) Acute hypoxemic respiratory failure: Plan: Secondary to COVID 19 pneumonia Failed outpatient prednisone course. Patient is Extubated on 04/24/21 Continue supplemental oxygen (2) Pneumonia due to COVID-19 virus: Plan: Completed 5-day course of remdesivir Completed dexamethasone course for 10 days Lasix PRN Needs 2 step prior to discharge Lasix PRN Encourage to prone Leukocytosis trending down Urinary tract infection Likely secondary to Nguyễn catheter Urine culture growing gram-negative bacilli Empirically started on Rocephin Nguyễn catheter discontinued (3) Acute renal failure: Plan: Monitor renal function Avoid nephrotoxic agents as able Cr: 1.1 today (4) Elevated troponin: Plan: Likely demand ischemia ACS less likely Denies chest pain (5) HTN (hypertension): Plan: Continue carvedilol Monitor BP (6) Transaminitis: Plan: Mild transaminitis likely secondary to Covid 19 infections (7) DVT prophylaxis: Plan: Lovenox SQ Code Status Full code Admission and Anticipated Discharge Date Admission Date: April 16, 2021 Subjective Patient is seen and examined at bedside States feeling better today Leukocytosis improving No new complaints Minimal cough Saturating well on 5L of supplemental oxygen Denies any chest pain, dyspnea, dizziness, nausea, abdominal pain Review of Systems Review of Systems: All systems reviewed & are unremarkable except as noted in Subjective Physical Exam Physical Exam: Physical Exam: Vitals signs as noted above General Appearance:Moderately built and nourished, no apparent distress Head: normocephalic, Atraumatic Eyes: normal inspection, EOMI Neck: supple, Trachea midline Respiratory/Chest: Decreased breath sounds, CTA Cardiovascular: S1, S2, No murmur Abdomen/GI:Soft, Non tender, Bowel sounds present Extremities/Musculoskeletal:normal inspection, no edema Neurologic/Psych:AAOX3, grossly no focal neurological deficits Skin: normal color, warm Results & Data Results & Data ([facility]) Vital Signs (Past 12 Hours) Vital Signs Temp Pulse Pulse Pulse Resp BP Pulse Ox 04/28/21 11:30 36.8 C 88 20 125/57 L 93 04/28/21 07:48 73 04/28/21 07:33 36.7 C 72 19 99/53 L 94 04/28/21 05:01 37.0 C 73 21 108/64 91 Laboratory Results Short CBC 04/28/21 Range/Units 11:02 WBC 12.67 H (4.8-10.8) K/uL Hgb 16.2 (14.0-18.0) g/dL Hct 48.9 (42-52) % Plt Count 139 (130-400) K/uL BMP 04/28/21 11:02 Sodium 137 Potassium 4.5 Chloride 106 Carbon Dioxide 25 BUN 34 H Creatinine 1.11 Glucose 99 Calcium 8.9
[2021-04-29 06:23] LABS: Hematocrit (blood only) 42.3 % (42-52); Hemoglobin 14.2 g/dL (14.0-18.0); Mean Corpuscular Hemoglobin 28.7 pg (25-34); Mean Corpuscular Hgb Conc 33.6 g/dL (32-36); Mean Corpuscular Volume 85.5 fL (80-100); Mean Platelet Volume 10.8 fL (7.4-10.4); Platelet Count 163 K/uL (130-400); RDW Coefficient of Variation 13.2 % (11.5-14.5); RDW Standard Deviation 41.3 fL (36.4-46.3); Red Blood Count 4.95 M/uL (4.7-6.1)
[2021-04-29 07:03] LABS: BUN Creatinine Ratio 26.5 (10-20); Calcium 8.3 mg/dl (8.5-10.1); Creatinine Clr Calc Pharmacy 79.1 ml/min; Est GFR (Non-African American) 77.7 ml/min; Potassium 3.8 mmol/L (3.5-5.1)
[2021-04-29] MEDS: DOCUSATE SODIUM/SENNA 50/8.6MG TAB PO SCH (07:50)
[2021-04-29] MEDS: POLYETHYLENE (MIRALAX) 17 GM PACK PO SCH (07:51)
[2021-04-29] MEDS: cefTRIAXone SODIUM 2,000 MG in DEXTROSE 5% 50 ML IV SCH (09:06)
[2021-04-29] MEDS: ASCORBIC ACID 500 MG TAB PO SCH ×2 (09:07→21:58)
[2021-04-29] MEDS: ENOXAPARIN INJ 40 MG/0.4 ML SYR SQ SCH (09:07)
[2021-04-29] MEDS: INSULIN ASPART 100 UNITS/ML 3 ML PEN SC SCH ×4 (09:07→21:53)
[2021-04-29] MEDS: PANTOprazole 40 MG TAB PO SCH (09:08)
[2021-04-29] MEDS: carvediloL 3.125 MG TAB PO SCH ×2 (09:08→21:58)
[2021-04-29] MEDS: CHOLECALCIFEROL 1,000 UNITS 25 MCG TAB PO SCH (09:08)
[2021-04-29] MEDS: ZINC SULFATE 220 MG CAPSULE PO SCH (09:08)
--- NOTE | 2021-04-29 10:59 | Pharmacy Report ---
Pharmacy Glycemic Sign Off Nt - Date of Service April 29, 2021 - Assessment & Plan ASSESSMENT: * Pharmacy was consulted by Christian Gerard on 04/20/21 for glycemic control and to write orders per [facility] inpatient glycemic control protocol. * Patient initially with severe hyperglycemia due to high dose IV steroids. Hyperglycemia resolved once steroids were discontinued. * Patient has been requiring ~10 units of bolus insulin per day for adequate glycemic control * BSGs ranging 83 - 171 mg/dl * Basal insulin not needed the past 48 hours * Regimen has only required minor adjustments over the past 48hrs to achieve this level of control * Do not anticipate further changes in patient status that would quickly deteriorate glycemic control (i.e. patient to be NPO for upcoming procedure, steroids tapering, starting tube feedings, etc). * Please see recommendations for outpatient antidiabetic regimen below. PLAN FOR INPATIENT GLYCEMIC CONTROL: No changes needed to current regimen. * Continue NovoLog per scale ACHS/Q6hrs while NPO * Goal range = 110 - 140 mg/dl * CF = 30 mg/dl/unit * CR = 1 unit for ever 20 g CHO consumed * Pharmacy is signing off of glycemic consult and will no longer be making adjustments to inpatient regimen. Please feel free to re-consult if needed. Thank you. DISCHARGE RECOMMENDATIONS: * A1c 6.6 % on 04/21/21 * Of note, patient was recently on a prednisone taper which may have contributed to A1c elevation. * BSG monitoring is recommended to confirm if patient has diabetes or pre- diabetes
[2021-04-29] MEDS ORDERED: FUROSEMIDE 20 MG TAB PO ONE (14:15)
--- NOTE | 2021-04-29 15:45 | Hospitalist Progress Note ---
Date of Service April 29, 2021 Assessment & Plan (1) Acute hypoxemic respiratory failure: Plan: Secondary to COVID 19 pneumonia Failed outpatient prednisone course. Patient is Extubated on 04/24/21 Continue supplemental oxygen (2) Pneumonia due to COVID-19 virus: Plan: Completed 5-day course of remdesivir Completed dexamethasone course for 10 days Lasix PRN Encourage to prone Persistent Leukocytosis Plan for 2 step tomorrow Saturating well on 2L of supplemental oxygen Urinary tract infection Likely secondary to Nguyễn catheter Urine culture growing Proteus on Rocephin Nguyễn catheter discontinued (3) Acute renal failure: Plan: Monitor renal function Avoid nephrotoxic agents as able Cr: 1.0 today (4) Elevated troponin: Plan: Likely demand ischemia ACS less likely Denies chest pain (5) HTN (hypertension): Plan: Continue carvedilol Monitor BP (6) Transaminitis: Plan: Mild transaminitis likely secondary to Covid 19 infections (7) DVT prophylaxis: Plan: Lovenox SQ Code Status Full code Admission and Anticipated Discharge Date Admission Date: April 16, 2021 Subjective Patient is seen and examined at bedside No new complaints Persistent leukocytosis Saturating well on 2L of supplemental oxygen Intermittent cough Denies any chest pain, dyspnea, dizziness, nausea, abdominal pain Review of Systems Review of Systems: All systems reviewed & are unremarkable except as noted in Subjective Physical Exam Physical Exam: Physical Exam: Vitals signs as noted above General Appearance:Moderately built and nourished, no apparent distress Head: normocephalic, Atraumatic Eyes: normal inspection, EOMI Neck: supple, Trachea midline Respiratory/Chest: Decreased breath sounds, Right basal crackles Cardiovascular: S1, S2, No murmur Abdomen/GI:Soft, Non tender, Bowel sounds present Extremities/Musculoskeletal:normal inspection, no edema Neurologic/Psych:AAOX3, grossly no focal neurological deficits Skin: normal color, warm Results & Data Results & Data ([facility]) Vital Signs (Past 12 Hours) Vital Signs Temp Pulse Resp BP Pulse Ox 04/29/21 12:25 37 C 89 18 140/74 95 04/29/21 08:00 37.0 C 92 H 20 131/60 96 Laboratory Results Short CBC 04/29/21 Range/Units 05:40 WBC 14.60 H (4.8-10.8) K/uL Hgb 14.2 (14.0-18.0) g/dL Hct 42.3 (42-52) % Plt Count 163 (130-400) K/uL BMP 04/29/21 05:40 Sodium 137 Potassium 3.8 D Chloride 106 Carbon Dioxide 25 BUN 28 H Creatinine 1.04 Glucose 89 Calcium 8.3 L
[2021-04-29] MEDS ORDERED: SODIUM CHLORIDE 0.65% NA SOLN 45 ML (OCEAN) ONE (19:19)
[2021-04-30 08:24] LABS: BUN Creatinine Ratio 22.5 (10-20); C Reactive Protein 6.55 mg/dl (0-0.29); Calcium 8.7 mg/dl (8.5-10.1); Creatinine Clr Calc Pharmacy 81.4 ml/min; Est GFR (African American) 93.3 ml/min; Est GFR (Non-African American) 80.5 ml/min; Potassium 3.5 mmol/L (3.5-5.1)
[2021-04-30] MEDS: carvediloL 3.125 MG TAB PO SCH ×2 (09:43→20:50)
[2021-04-30] MEDS: ENOXAPARIN INJ 40 MG/0.4 ML SYR SQ SCH (09:43)
[2021-04-30] MEDS: ASCORBIC ACID 500 MG TAB PO SCH ×2 (09:43→20:50)
[2021-04-30] MEDS: CHOLECALCIFEROL 1,000 UNITS 25 MCG TAB PO SCH (09:44)
[2021-04-30] MEDS: DOCUSATE SODIUM/SENNA 50/8.6MG TAB PO SCH (09:44)
[2021-04-30] MEDS: PANTOprazole 40 MG TAB PO SCH (09:44)
[2021-04-30] MEDS: ZINC SULFATE 220 MG CAPSULE PO SCH (09:44)
[2021-04-30] MEDS: INSULIN ASPART 100 UNITS/ML 3 ML PEN SC SCH ×4 (09:46→21:26)
[2021-04-30] MEDS: cefTRIAXone SODIUM 2,000 MG in DEXTROSE 5% 50 ML IV SCH (09:55)
[2021-04-30] MEDS: POLYETHYLENE (MIRALAX) 17 GM PACK PO SCH (09:56)
[2021-04-30] MEDS ORDERED: POLYETHYLENE (MIRALAX) 17 GM PACK PO PRN (12:40)
[2021-04-30] MEDS ORDERED: ALBUTEROL 0.083% NEBU SOLN 3 ML VIAL NEB PRN (12:41)
[2021-04-30] MEDS ORDERED: FUROSEMIDE 20 MG TAB PO ONE (13:00)
--- NOTE | 2021-04-30 16:03 | Hospitalist Progress Note ---
Date of Service April 30, 2021 Assessment & Plan (1) Acute hypoxemic respiratory failure: Plan: Secondary to COVID 19 pneumonia Failed outpatient prednisone course. Patient is Extubated on 04/24/21 Continue supplemental oxygen (2) Pneumonia due to COVID-19 virus: Plan: Completed 5-day course of remdesivir Completed dexamethasone course for 10 days Lasix PRN Encourage to prone Persistent Leukocytosis 2 step : 2L at rest and 5 l with activity Saturating well on 2L of supplemental oxygen Will continue current management Will redo 2 step in 2 days CRP trended up Urinary tract infection Likely secondary to Nguyễn catheter Urine culture growing Proteus on Rocephin Day #3 Nguyễn catheter discontinued (3) Acute renal failure: Plan: Monitor renal function Avoid nephrotoxic agents as able Cr: 1.0 today (4) Elevated troponin: Plan: Likely demand ischemia ACS less likely Denies chest pain (5) HTN (hypertension): Plan: Continue carvedilol Monitor BP (6) Transaminitis: Plan: Mild transaminitis likely secondary to Covid 19 infections (7) DVT prophylaxis: Plan: Lovenox SQ Code Status Full code Admission and Anticipated Discharge Date Admission Date: April 16, 2021 Subjective Patient is seen and examined at bedside States having a coughing spell with nasal congestion overnight States feeling better today Had 2step earlier today Persistent cough Denies any chest pain, dyspnea, dizziness, nausea, abdominal pain Review of Systems 2 Review of Systems: All systems reviewed & are unremarkable except as noted in Subjective Physical Exam Physical Exam: Physical Exam: Vitals signs as noted above General Appearance:Moderately built and nourished, no apparent distress Head: normocephalic, Atraumatic Eyes: normal inspection, EOMI Neck: supple, Trachea midline Respiratory/Chest: Decreased breath sounds, CTA Cardiovascular: S1, S2, No murmur Abdomen/GI:Soft, Non tender, Bowel sounds present Extremities/Musculoskeletal:normal inspection, no edema Neurologic/Psych:AAOX3, grossly no focal neurological deficits Skin: normal color, warm Results & Data Results & Data ([facility]) Vital Signs (Past 12 Hours) Vital Signs Temp Pulse Pulse Pulse Pulse Pulse Pulse 04/30/21 10:52 90 96 H 98 H 101 H 96 H 04/30/21 07:52 36.6 C 84 Pulse Pulse Resp Resp Resp Resp Resp 04/30/21 10:52 87 89 18 20 20 20 04/30/21 07:52 18 Resp Resp Resp BP Pulse Ox Pulse Ox Pulse Ox 04/30/21 10:52 20 20 18 94 87 L 04/30/21 07:52 125/76 93 Pulse Ox Pulse Ox Pulse Ox Pulse Ox Pulse Ox 04/30/21 10:52 89 L 91 86 L 93 87 L 04/30/21 07:52 Laboratory Results [facility] 04/30/21 07:25 Sodium 137 Potassium 3.5 Chloride 106 Carbon Dioxide 24 BUN 23 H Creatinine 1.01 Glucose 97 Calcium 8.7
[2021-05-01] MEDS: ASCORBIC ACID 500 MG TAB PO SCH ×2 (09:26→20:30)
[2021-05-01] MEDS: ENOXAPARIN INJ 40 MG/0.4 ML SYR SQ SCH (09:26)
[2021-05-01] MEDS: carvediloL 3.125 MG TAB PO SCH ×2 (09:26→20:30)
[2021-05-01] MEDS: CHOLECALCIFEROL 1,000 UNITS 25 MCG TAB PO SCH (09:27)
[2021-05-01] MEDS: PANTOprazole 40 MG TAB PO SCH (09:27)
[2021-05-01] MEDS: ZINC SULFATE 220 MG CAPSULE PO SCH (09:27)
[2021-05-01] MEDS: INSULIN ASPART 100 UNITS/ML 3 ML PEN SC SCH ×4 (09:31→20:30)
[2021-05-01] MEDS: cefTRIAXone SODIUM 2,000 MG in DEXTROSE 5% 50 ML IV SCH (09:43)
[2021-05-01 09:47] LABS: BUN Creatinine Ratio 18.4 (10-20); Calcium 8.7 mg/dl (8.5-10.1); Creatinine Clr Calc Pharmacy 77.6 ml/min; Est GFR (Non-African American) 75.9 ml/min
--- NOTE | 2021-05-01 16:44 | Hospitalist Progress Note ---
Date of Service May 01, 2021 Assessment & Plan (1) Acute hypoxemic respiratory failure: Plan: Secondary to COVID 19 pneumonia Failed outpatient prednisone course. Patient is Extubated on 04/24/21 Continue supplemental oxygen (2) Pneumonia due to COVID-19 virus: Plan: Completed 5-day course of remdesivir Completed dexamethasone course for 10 days Lasix PRN Encourage to prone Persistent Leukocytosis 2 step : 2L at rest and 5 l with activity Saturating well on 2L of supplemental oxygen Subjective feels improved Plan for repeat 2 step tomorrow Low grade fever today Repeat Inflammatory markers tomorrow Repeat CXR tomorrow Urinary tract infection Likely secondary to Nguyễn catheter Urine culture growing Proteus on Rocephin Day #4 Nguyễn catheter discontinued (3) Acute renal failure: Plan: Monitor renal function Avoid nephrotoxic agents as able Cr: 1.0 today (4) Elevated troponin: Plan: Likely demand ischemia ACS less likely Denies chest pain (5) HTN (hypertension): Plan: Continue carvedilol Monitor BP (6) Transaminitis: Plan: Mild transaminitis likely secondary to Covid 19 infections (7) DVT prophylaxis: Plan: Lovenox SQ Code Status Full code Admission and Anticipated Discharge Date Admission Date: April 16, 2021 Subjective Patient is seen and examined at bedside Low grade fever today States that he proned overnight and subjectively feels much improved "I hardly have any cough " Denies any chest pain, dyspnea, dizziness, nausea, abdominal pain Plan for repeat 2 step tomorrow Review of Systems Review of Systems: All systems reviewed & are unremarkable except as noted in Subjective Physical Exam Physical Exam: Physical Exam: Vitals signs as noted above General Appearance:Moderately built and nourished, no apparent distress Head: normocephalic, Atraumatic Eyes: normal inspection, EOMI Neck: supple, Trachea midline Respiratory/Chest: Decreased breath sounds, CTA Cardiovascular: S1, S2, No murmur Abdomen/GI:Soft, Non tender, Bowel sounds present Extremities/Musculoskeletal:normal inspection, no edema Neurologic/Psych:AAOX3, grossly no focal neurological deficits Skin: normal color, warm Results & Data Results & Data ([facility]) Vital Signs (Past 12 Hours) Vital Signs Temp Pulse Resp BP Pulse Ox 05/01/21 15:15 37.7 C H 86 18 117/58 L 95 05/01/21 07:32 36.8 C 86 20 123/68 92 Laboratory Results [facility] 05/01/21 08:33 Sodium 135 L Potassium 4.0 Chloride 103 Carbon Dioxide 25 BUN 20 H Creatinine 1.06 Glucose 90 Calcium 8.7
[2021-05-02 07:58] LABS: Hematocrit (blood only) 35.8 % (42-52); Mean Corpuscular Hemoglobin 28.5 pg (25-34); Mean Corpuscular Hgb Conc 33.5 g/dL (32-36); Mean Platelet Volume 9.8 fL (7.4-10.4); Platelet Count 177 K/uL (130-400); RDW Coefficient of Variation 13.4 % (11.5-14.5); RDW Standard Deviation 41.3 fL (36.4-46.3); Red Blood Count 4.21 M/uL (4.7-6.1); White Blood Count 9.82 K/uL (4.8-10.8)
[2021-05-02] MEDS: ASCORBIC ACID 500 MG TAB PO SCH ×2 (08:23→19:51)
[2021-05-02] MEDS: carvediloL 3.125 MG TAB PO SCH ×2 (08:23→19:51)
[2021-05-02] MEDS: CHOLECALCIFEROL 1,000 UNITS 25 MCG TAB PO SCH (08:23)
[2021-05-02] MEDS: PANTOprazole 40 MG TAB PO SCH (08:23)
[2021-05-02] MEDS: ENOXAPARIN INJ 40 MG/0.4 ML SYR SQ SCH (08:24)
[2021-05-02] MEDS: ZINC SULFATE 220 MG CAPSULE PO SCH (08:24)
[2021-05-02 08:25] LABS: BUN Creatinine Ratio 18.5 (10-20); C Reactive Protein 6.09 mg/dl (0-0.29); Calcium 8.9 mg/dl (8.5-10.1); Creatinine Clr Calc Pharmacy 85.6 ml/min; Est GFR (African American) 99.2 ml/min; Est GFR (Non-African American) 85.6 ml/min; Potassium 3.7 mmol/L (3.5-5.1)
--- NOTE | 2021-05-02 09:22 | XRay Report ---
XR chest 1V portable CLINICAL HISTORY: COVID COMPARISON STUDY: April 28, 2021 FINDINGS: No pneumothorax. No pleural effusion. Patchy airspace opacities are again seen bilaterally, slightly improved since prior. Lung volumes are slightly decreased. Cardiomediastinal silhouette is within normal limits in size. Vasculature is obscured.. Osseous structures: Minimal degenerative changes of the spine. Redemonstration of small densities within the right upper quadrant, could represent gallstones or cherelle gical clips. IMPRESSION: 1. Minimal interval improvement of multifocal pneumonia. ACT 112: Negative or not required by law. The above report was generated using voice recognition software. It may contain grammatical, syntax o r spelling errors. Electronically signed by: Hayde Betancourt DO 05/02/2021 9:21 AM
[2021-05-02] MEDS: INSULIN ASPART 100 UNITS/ML 3 ML PEN SC SCH ×4 (09:36→20:26)
[2021-05-02] MEDS: cefTRIAXone SODIUM 2,000 MG in DEXTROSE 5% 50 ML IV SCH (09:46)
--- NOTE | 2021-05-02 13:02 | Hospitalist Progress Note ---
Date of Service May 02, 2021 Assessment & Plan (1) Acute hypoxemic respiratory failure: (2) Pneumonia due to COVID-19 virus: Plan: Secondary to COVID 19 pneumonia Failed outpatient prednisone course. Patient is Extubated on 04/24/21 Continue supplemental oxygen Completed 5-day course of remdesivir Completed dexamethasone course for 10 days Continue self proning Persistent Leukocytosis 2 step yesterday: 2L at rest and 5 l with activity CXR today show improving infiltrates Patient advised to continue incentive spirometry and flutter We will wean down oxygen with a goal of weaning off. Plan to do two-step tomorrow to assess oxygen requirement with activity prior to discharge Urinary tract infection Urine culture growing Proteus Will complete 5 days of ceftriaxone today Nguyễn catheter discontinued (3) Acute renal failure: Plan: Monitor renal function Avoid nephrotoxic agents as able Cr: 0.96 today (4) Elevated troponin: Plan: Likely demand ischemia ACS less likely Denies chest pain (5) HTN (hypertension): Plan: Stable Sounds good continue carvedilol Monitor BP (6) Transaminitis: Plan: Mild transaminitis likely secondary to Covid 19 infections (7) DVT prophylaxis: Plan: Lovenox SQ Code Status Full code Plan: Possible dc tomorrow Admission and Anticipated Discharge Date Admission Date: April 16, 2021 Subjective Patient seen and examined today. Reports feeling better. Denies any chest pain. Reports coughing which he states is mildly improved compared to yesterday Denies any nausea, vomiting, dizziness, abdominal pain Denies any diarrhea Was requiring 4 L/min this morning Physical Exam Constitutional: Elderly man in no obvious distress Eyes: PERRL, conjunctivae normal, anicteric sclerae ENMT: external ear and nose normal, oropharynx normal Respiratory: Decreased breath sounds, nasal cannula Cardiovascular: RRR, S1-S2 Gastrointestinal (Abdomen): normal bowel sounds, soft, nontender, no hepatosplenomegaly Musculoskeletal: no cyanosis or clubbing, extremities motor strength 5/5 No pedal edema Neurologic: PERRL, EOMI, accommodation nl, no face palsy, no dysarthria Psychiatric: A+Ox3, euthymic affect Results & Data Results & Data ([facility]) Vital Signs (Past 12 Hours) Vital Signs Temp Pulse Resp Pulse Ox 05/02/21 12:51 91 05/02/21 12:49 89 L 05/02/21 12:40 93 05/02/21 12:04 93 05/02/21 12:02 94 05/02/21 11:16 94 05/02/21 10:45 92 05/02/21 09:47 92 05/02/21 08:29 93 05/02/21 08:21 90 05/02/21 07:05 37.2 C 86 24 93 Laboratory Results Abnormal lab results 05/01/21 05/02/21 05/02/21 Range/Units 20:23 07:06 07:06 RBC 4.21 L (4.7-6.1) M/uL Hgb 12.0 L (14.0-18.0) g/dL Hct 35.8 L (42-52) % POC Glucose 132 H (70-99) mg/dl C-Reactive Protein 6.09 H (0-0.29) mg/dl 05/02/21 05/02/21 Range/Units 08:31 12:10 RBC (4.7-6.1) M/uL Hgb (14.0-18.0) g/dL Hct (42-52) % POC Glucose 104 H 199 H (70-99) mg/dl C-Reactive Protein (0-0.29) mg/dl
[2021-05-03 06:05] LABS: Hematocrit (blood only) 35.9 % (42-52); Mean Corpuscular Hemoglobin 28.6 pg (25-34); Mean Corpuscular Hgb Conc 33.4 g/dL (32-36); Mean Corpuscular Volume 85.7 fL (80-100); Mean Platelet Volume 9.5 fL (7.4-10.4); Platelet Count 198 K/uL (130-400); RDW Coefficient of Variation 13.6 % (11.5-14.5); RDW Standard Deviation 42.7 fL (36.4-46.3); Red Blood Count 4.19 M/uL (4.7-6.1); White Blood Count 8.46 K/uL (4.8-10.8)
[2021-05-03 06:31] LABS: BUN Creatinine Ratio 14.8 (10-20); Calcium 8.4 mg/dl (8.5-10.1); Creatinine Clr Calc Pharmacy 77.6 ml/min; Est GFR (Non-African American) 75.9 ml/min
[2021-05-03] MEDS: carvediloL 3.125 MG TAB PO SCH (08:55)
[2021-05-03] MEDS: ZINC SULFATE 220 MG CAPSULE PO SCH (08:55)
[2021-05-03] MEDS: ASCORBIC ACID 500 MG TAB PO SCH (08:55)
[2021-05-03] MEDS: CHOLECALCIFEROL 1,000 UNITS 25 MCG TAB PO SCH (08:55)
[2021-05-03] MEDS: ENOXAPARIN INJ 40 MG/0.4 ML SYR SQ SCH (08:56)
[2021-05-03] MEDS: PANTOprazole 40 MG TAB PO SCH (08:56)
[2021-05-03] MEDS: INSULIN ASPART 100 UNITS/ML 3 ML PEN SC SCH ×2 (09:57→14:05)
--- NOTE | 2021-05-03 13:54 | Discharge Summary ---
Date of Service May 03, 2021 Admission HPI Per Admitting Provider History obtained from patient, family, and records. Medical history significant for hypertension, CRI (baseline creatinine 1.4), hx cervical schwannoma status post surgery. Last confinement 2018 for paresthesia secondary to cervical spine mass. Patient eventually underwent cervical [place] [facility] found to be schwannoma. 1 week history of dry cough symptoms in shortness of breath. was sick of COVID-19. Patient has not received COVID-19 vaccination. Patient prescribed prednisone by PCP for presumptive Covid 19 infection. Worsening shortness of breath without chest pain, poor appetite. Fever 100,1 at home. Pulse ox at home noted to be 68. Patient called 911. At the ER, O2 sats noted to be 80s on room air. Decadron given at the ER. BiPAP initiated at the ER. 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 Admission Exam Per Admitting Provider GENERAL: Comfortable, pleasant, no respiratory distress SKIN: Normal color, warm HEENT: Alopecia, [place] palpebral conjunctivae, no ptosis, dry buccal mucosa, BiPAP in place NECK : Supple, no tenderness CHEST : Decreased breath sounds, no tenderness HEART : RRR, no obvious murmurs ABDOMEN: Some distention, nontender EXTREMITIES : Minimal LE swelling, no LE tenderness, no other conspicuous deformities noted NEUROLOGIC : Coherent, no facial asymmetry, no other gross focality Principal Diagnosis Acute hypoxemic respiratory failure COVID 19 pneumonia Urinary tract infection Acute renal failure Discharge Exam Eyes PERRL, conjunctivae normal, anicteric sclerae ENMT external ear and nose normal, oropharynx normal Respiratory Not in respiratory distress On nasal oxygen at 3l/min Coarse breath sounds Cardiovascular RRR S1 S2 Gastrointestinal (Abdomen) normal bowel sounds, soft, nontender, no hepatosplenomegaly Musculoskeletal no cyanosis or clubbing, extremities motor strength 5/5 Neurologic PERRL, EOMI, accommodation nl, no face palsy, no dysarthria Psychiatric A+Ox3, euthymic affect Discharge Data Allergies Allergy/AdvReac Type Severity Reaction Status Date / Time aspirin AdvReac Mild NOSE BLEEDS Verified 04/16/21 19:23 Penicillins AdvReac Mild "MAKES ME Verified 04/16/21 19:23 SICK." Consultations 04/16/21 21:16 ED Decision to Admit Stat 04/20/21 11:39 Consult Palliative Care Routine 04/20/21 13:07 Consult Pulmonology Routine 04/20/21 15:13 Consult [employer] Stat Ordered Studies 04/20/21 16:54 US point of care ultrasound Stat 04/21/21 19:34 US point of care ultrasound Urgent 04/23/21 08:33 CT head/brain wo con Stat No intra or extra-axial mass lesions are visualized. There is no CT evidence of acute cortical infarction. There is no evidence of midline shift. There is no acute hemorrhage. There is focal area of decreased attenuation is seen within the right temporal lobe, posteriorly to the occipital horn of the right lateral ventricle (2/11) and could represent old lacunar infarct. Also focal hypoattenuating lesion is seen within kishan which might also represent sequela from prior insult. No acute depressed calvarial fractures are visualized. Well-defined 1.8 cm oval exophytic sclerotic lesion projecting from outer table of the left occipital bone most likely represent benign osteoma. There are patchy white matter hypodensities likely on a small vessel basis. There is no evidence of pathologic ventricular dilatation. Partial opacification of bilateral ethmoid air cells is seen. Mucosal thickening is seen within bilateral maxillary sinuses, right more than left. Air-fluid level is seen within left sphenoid sinus. Complete opacification of the left and partial opacification of the right mastoid air cells. IMPRESSION: 1. No acute intracranial hemorrhage, no midline shift or space occupying lesions. 2. Focal area of decreased attenuation within the right temporal lobe and kishan likely representing lacunar infarcts. 3. Chronic small vessel ischemia. 4. Fluid signal is seen within paranasal sinuses and bilateral mastoid air cells, might represent inflammatory process/sinusitis in appropriate clinical settings. 5. The rest of findings as above. 04/24/21 09:54 MR brain wo con Routine Brain parenchyma: There is age-related involutional change noting minimal microangiopathic disease. There is no hemorrhage or mass effect. There is no restricted diffusion to suggest acute ischemia. Mahmood-white matter differentiation is preserved. A chronic lacunar infarct is noted in the kishan. No extra-axial fluid collection is seen. The cerebellar tonsils are normal in configuration. Ventricles, sulci, and cisterns: Prominent secondary to involutional change. Pituitary and sella: Partially empty sella is incidentally noted. Intracranial vasculature: Normal flow voids are maintained at the skull base. Orbits: The bony orbits are grossly intact. Orbital contents are normal in appearance. Sinuses and mastoids: There are large mastoid effusions. There is evidence of previous paranasal sinus surgery. Mucosal thickening is noted in the right maxillary antrum and the sphenoid sinuses. Calvarium: Unremarkable. Cervical cord: Partially visualized cervical spinal cord is normal in morphology and signal intensity. IMPRESSION: 1. No acute intracranial abnormality. 2. Large mastoid effusions. 3. Additional findings as above. Hospital Course (1) Acute hypoxemic respiratory failure: (2) Pneumonia due to COVID-19 virus: Secondary to COVID 19 pneumonia Failed outpatient prednisone course. Patient was admitted and had to be intubated Was comanaged with the certified coding specialist Was extubated on 04/24/21 Completed 5-day course of remdesivir Completed dexamethasone course Continue self proning Continues to require oxygen 2 step home oxygen test showed: 2L at rest and 5 l with activity Patient advised to continue incentive spirometry and flutter Urinary tract infection Urine culture grew Proteus Completed 5 days of ceftriaxone today Nguyễn catheter discontinued (3) Acute renal failure: Cr was 1.62 on admission СВЕТЛАНА now resolved. Cr: 1.06 today (4) Elevated troponin: Likely demand ischemia ACS less likely Denies chest pain (5) HTN (hypertension): Stable Had home dose carvedilol reduced to 3.125mg bid inpatient due to hypotension BP has been normal since Discharged on current dose of 3.125mg bid. PCP to monitor (6) Transaminitis: Mild transaminitis likely secondary to Covid 19 infections updated on plans and medication changes She reports patient still has ventolin prn at home Total Time Total Time Spent Total Time Spent (In Minutes): 60 Total Time Includes: Examination of the Patient, Discharge Planning, Medication Reconciliation and Other Discharge Plan Discharge Items Patient Disposition: Home - Home Health Services Reason For Visit: RESP FAILURE, COVID Discharge Diagnosis: Acute hypoxemic respiratory failure COVID 19 pneumonia Urinary tract infection Acute renal failure Condition on Discharge: Critical Activity: Per Instructions section Sexual Activity: Wait until after follow-up appointment Non-emergency contact: Primary Care Provider Call non-emergency contact if: you have any medication questions, your symptoms worsen, your pain is concerning for you and you have a fever Follow-up/Referrals: Loren Arriaza PA-C [Primary Care Provider] - 05/07/21 3:00 pm (This is a telephone appointment. Your doctor's office will call you at the appointment time.) Diet: Carb Consistent or DM2 Addtl Attending Provider Instructions: Mr Prado. You came to the hospital with shortness of breath. You were evaluated and found to have COVID 19 pneumonia. You required ventilatory therapy (breathing machine) as well as other medications used to treat COVID 19 infection. You were also treated for other medical problems including acute kidney failure and urinary tract infection. You are being discharged home with home health services. You are being discharged on nasal oxygen at 3l/min all the time at rest and increase to 5l/min with activity. Your home medication called Coreg was reduced to 3.125mg twice daily. Please take as prescribed and follow up with your Primary Doctor who will make adjustments as needed Continue to use your home ventolin inhaler as needed for shortness of breath. Please ensure follow up with your Primary Doctor. It was a pleasure taking care of you. Pending Studies at Discharge: No Stand-Alone Forms: My [facility], Smoking Cessation Medications and DC Order Prescriptions: New albuterol sulfate [Ventolin HFA] 90 mcg/actuation Hfa Aerosol Inhaler 2 puff inhalation QIDR PRN (Reason: shortness of breath or wheezing) Qty: 8.5 RF: 0 Continued Men's One Daily 400-20-300 mcg Tablet 1 tab PO QAM RF: 0 Changed carvedilol [Coreg] 6.25 mg Tablet 3.125 mg PO BID Qty: 30 RF: 0 Discontinued prednisone 20 mg tablet See Rx Instructions .ROUTE .COMPLEX RF: 0 Discharge Orders: Discharge Order (Routine); Ordered 05/03/21 Ordered By: Halie Montes De Oca/Other Patient Handouts: COVID-19 Make Face Mask, A1C, How COVID-19 Spreads, 5 Steps for Eating Healthier Admission Data Admit Date/Time: 04/16/21 22:41 Attending Provider: Halie Hernandez I. Admit Provider: Bert Ayers Primary Care Provider: Loren Arriaza Other Providers: Marshall Gurrola ; Dayo Perez ; Gisela Platt ; Nish Prieto Other Interventions: Discharge Summary Assessment (RN) Last Done: 05/03/21 15:36
--- NOTE | 2021-05-11 14:19 | Coding Query ---
CODING QUERY To promote full compliance with coding requirements relating to patient care, provider participation is requested in all cases of inpatient coder uncertainty. Please assist us with the question(s) below: The below query was first placed to Dr. Halie Hernandez and Dr. Hernandez has asked that the query be placed either to you or to Dr. Prieto. Coding Question(s): The Palliative Consultation on 04/23 documents, "He is able to open his eyes and interact; however, as of this morning, he stopped having the ability to move his left side. A head CT was performed and results indicated Focal area of decreased attenuation within the right temporal lobe and kishan likely representing lacunar infarct. An MRI has been ordered and is pending", and the Critical Care Progress Notes on 04/23 and 04/24 document, "Possible lacunar infarct -MRI to r/o acute/subacute infarct", and then the Palliative Progress Note on 04/24 documents, "The patient is able to wake today and follow simple commands. He is now able to spontaneously move all of his limbs, an improvement from yesterday. MRI was performed and unremarkable. Suspect that he had a TIA yesterday resulting in his short term left sided flaccidity, which has now recovered". There is no further mention of possible lacunar infarct or possible TIA. Please specify below, in your clinical opinion. ( x ) Possible TIA ( ) Possible Stroke - lacunar infarct ( ) No Stroke or TIA - these are Ruled-Out ( ) Other: Please Specify Physician's Response(s): Thank you Josselyn Samuel Principal Diagnosis: "that condition established after study, to be chiefly responsible for occasioning the admission of the patient to the hospital for care." Co-Existing Principal Diagnosis: "when two or more diagnoses equally meet the criteria for principal diagnosis as determined by the circumstances of admission, diagnostic work up, and/or therapy provided, and the Alphabetic Index, Tabular List, or another coding guideline does not provide sequencing direction, any one of the diagnoses may be sequenced first." "When the physician has documented what appears to be a current diagnosis in the body of the record, but has not included the diagnosis in the final diagnostic statement, the physician should be asked whether the diagnosis should be added." (Source Coding [facility] 2 QTR90. p3-4) MARYD
== END 2021-05-03 16:55 | disposition home health service (06) | DRG 208 ==
LOC: ED 18:19 → SUATTDRO 22:41 → 2E 22:41 → 2N 04-17 20:06 → 2S 04-18 10:22 → 1E 04-20 16:40 → 2E 04-25 07:39 → 3W 04-29 14:07
DX: U07.1 COVID-19; Y92.239 Unspecified place in hospital as the place of occurrence of the external cause; I24.8 Other forms of acute ischemic heart disease; N39.0 Urinary tract infection, site not specified; Z88.6 Allergy status to analgesic agent; G45.9 Transient cerebral ischemic attack, unspecified; Z66 Do not resuscitate; Z82.49 Family history of ischemic heart disease and other diseases of the circulatory system; Z88.0 Allergy status to penicillin; I95.89 Other hypotension; N18.9 Chronic kidney disease, unspecified; N17.9 Acute kidney failure, unspecified; I12.9 Hypertensive chronic kidney disease with stage 1 through stage 4 chronic kidney disease, or unspecified chronic kidney disease; J96.01 Acute respiratory failure with hypoxia; Z79.899 Other long term (current) drug therapy; J80 Acute respiratory distress syndrome; Y84.6 Urinary catheterization as the cause of abnormal reaction of the patient, or of later complication, without mention of misadventure at the time of the procedure; B96.4 Proteus (mirabilis) (morganii) as the cause of diseases classified elsewhere; J12.82 Pneumonia due to coronavirus disease 2019; T83.511A Infection and inflammatory reaction due to indwelling urethral catheter, initial encounter; Z51.81 Encounter for therapeutic drug level monitoring